=== PATIENT | female | born 1965 | race African-American/Black ===

== ENCOUNTER 2018-02-09 15:18 | Inpatient (IN) | payer MEDICARE, MEDICAID ==
[~2018-02-09] VITALS: Ht 165.1 cm; Wt 61.1 kg
--- NOTE | ~2018-02-09 | OP ---
PATIENT NAME: PRADEEP GONZALEZ MEDICAL RECORD: [id number] :61 LOCATION:D. D.2136 ADMISSION DATE:02/09/18 SURGEON: GRACIE GOLDSTEIN MD DATE OF OPERATION: 02/20/2018 REFERRED BY: Ham Fierro MD PREOPERATIVE DIAGNOSES: Staphylococcal bacteremia and dialysis catheter associated sepsis. POSTOPERATIVE DIAGNOSES: Staphylococcal bacteremia and dialysis catheter associated sepsis. ADDITIONAL DIAGNOSES: End-stage renal disease and dependence on hemodialysis and diabetes and methicillin-resistant Staphylococcus aureus bacteremia. OPERATION PERFORMED: Right internal jugular tunneled dialysis catheter exchange with placement of a 19-cm HemoSplit catheter under TIVA per [employer] SERVICE OFFICER and local 1% lidocaine. PREOPERATIVE NOTE: Ms. oGnzalez is a 52-year-old patient of nephrology. I was asked by Dr. Fierro to change her right internal jugular dialysis catheter, which is believed to be infected with methicillin-resistant Staphylococcus. She has been on vancomycin now for a while. DESCRIPTION OF PROCEDURE: Under TIVA in supine position, the patient was prepped and draped in sterile manner and the skin and subcutaneous tissues around the subcutaneous tunnel were anesthetized with lidocaine. The catheter was placed on some tension and with this simple traction, the Dacron Ranchester cuff which was not attached to the surrounding tissues within the tunnel easily was delivered from the entry site. Then, a Roadrunner wire was introduced through the catheter and passed into the inferior vena cava and the old catheter was removed under fluoroscopy. Its tip was sent for culture and a new 19 cm HemoSplit catheter was inserted over the guidewire and positioned with its tip deeply within the right atrium. Both lumens of the catheter were accessed and aspirated, free return of blood confirmed. They were flushed with saline and then Hep-Lock solution, clamped and capped. The catheter was sutured to the skin with 2-0 Prolene and a standard central vein line dressing applied. The patient was placed in reverse Trendelenburg position to reduce oozing and bleeding along the catheter tract. Fluoroscopy was utilized throughout the procedure and there is no need for a chest x-ray. It is perfectly fine to go ahead now and use her new catheter as needed for venous access and dialysis. Blood loss during the procedure was trivial and unreplaced and all sponges, instruments, and needles were accounted for. TRANSINT:[id number] Voice Confirmation ID: [id number] DOCUMENT ID: [id number] OPERATIVE REPORT [id number] PRADEEP GONZALEZ JAMES MD at 2012 CC: HAM IFERRO MD [id number] DICTATION DATE: 02/20/18100 MACHINERY ERECTOR: 02/20/18 0338 DIS IN 02/23/18 [place] [id number] [facility], [facility]901
--- NOTE | ~2018-02-09 | DS ---
PATIENT:PRADEEP DUBON :61 MEDICAL RECORD: [id number] DISCHARGE SUMMARY ADMISSION DATE: 02/09/18 DISCHARGE DATE: 02/23/18 HISTORY OF PRESENT ILLNESS: The patient is an unfortunate 52-year-old black female with longstanding diabetes mellitus. 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 She has chronic long term confinement, but continues to have ongoing drug abuse with a positive drug screens despite being in the long term. She is admitted with fever. HOSPITAL COURSE: The patient had positive blood cultures for MRSA. She was dosed with vancomycin and had a new dialysis catheter placed by Dr. Lim. Her echocardiogram was negative for any evidence of valvular abnormalities. She received multiple doses of vancomycin during her hospitalization. During this time, she had an HIV that was negative, but had a positive screen for syphilis confirmed with a positive FDA, seen by Dr. Allison who gave her Bicillin and scheduled her for 2 IM doses as an outpatient by 1 week. We will continue that as an outpatient. We were unable to find a long term that would accept the patient upon discharge due to her ongoing drug abuse and so she will be discharged to the care of her family. DISCHARGE DIAGNOSES: 1. Infected dialysis catheter, now removed. 2. Ongoing drug abuse. 3. Septicemia with methicillin-resistant Staphylococcus aureus, treated with vancomycin. 4. Blindness due to diabetic retinopathy. 5. End-stage renal disease, chronic dialysis. 6. Chronic anemia. 7. Tertiary syphilis. PLAN: The patient will be discharged today. We will arrange for her to finish her Bicillin at the health department. She will resume her dialysis at [facility]. There is no long term that will accept the patient and she will be discharged home today. She will be discharged on her renal diabetic diet. DISCHARGE MEDICATIONS: Bicillin 1.2 million units IM weekly times 2. She will do Sabra p.r.n., Nephro-Ken 1 daily, Effexor 37.5 daily. She will continue Epogen in the dialysis unit. She will do Tums 2 t.i.d., Neurontin 100 b.i.d., Xanax 0.25 p.r.n., Protonix 40 mg daily, insulin Levemir 20 at bedtime, Seroquel 25 at bedtime, Prozac 10 b.i.d., hydralazine 100 t.i.d., losartan 100 daily, isosorbide 60 mg daily, Lipitor 40 mg daily, amlodipine 10 mg daily. TRANSINT:[id number] Voice Confirmation ID: [id number] DOCUMENT ID: [id number] ULI LOBO MD at 0605 CC: [id number] DICTATION DATE: 02/23/18 08 SELF PROPELLED DREDGE OPERATOR: 02/23/18 1153 DIS IN 02/23/18 [place] [id number] [place] [address]
--- NOTE | ~2018-02-09 | EC ---
PATIENT:PRADEEP DUBON DATE OF SERVICE: 02/09/18 SEX: F MEDICAL RECORD: [id number] DATE OF : [birth year] LOCATION:D.M2 D.213 AGE OF PATIENT: 52 ADMISSION DATE: 02/09/18 REFERRING PHYSICIAN: INTERPRETING PHYSICIAN: DAPHNE DOWNING MD ECHOCARDIOGRAM REPORT ECHO CHARGES 4 ECHO COMPLETE Date: 02/19 CLINICAL DIAGNOSIS: STAPH SEPSIS ECHOCARDIOGRAPHIC MEASUREMENTS (adult normal given) AC root (d.<3.7cm) 3.2 cm LV Septum d (<1.2 cm> 1.4 cm Valve Excursion 1.9 cm LV Septum (systole) 2.0 cm Left Atria (s.<4.0cm> 3.7 cm LVPW d(<1.2cm) 1.6 cm RV (d.<2.3cm) 2.2 cm LVPW (sytole) 2.0 cm LV diastole(<5.6CM) 4.1 cm MV E-F(>70mm/sec) cm LV systole 2.8 cm LVOT Diameter 1.8 cm MV exc.(>10mm) cm Est.ejection fraction (50-75%) % DOPPLER: LVIT cm/sec A 77.0 cm/sec E 129 cm/sec LA cm/sec RVSP 46.2 mmHg LVOT 100 cm/sec AOP1/2T m/s Asc. Ao 195 cm/sec RVOT 76.0 cm/sec RA cm/sec PA 125 cm/sec AV Gradient Peak 15.2 mmHg AV Mean 7.4 mmHg AV Area 1.4 cm MV Gradient Peak 6.2 mmHg MV Mean 2.6 mmHg MV Area cm COMMENTS: Nursing Care Partner: 1 PRISCILLA QUINTANAOE Heater Engineer Helper: 2 Dr. Holliday TAPE# PACS Pericardial Effusion N DATE OF SERVICE: FINDINGS: 1. Left ventricular chamber size is within normal limits. Left ventricular systolic function is normal. Overall ejection fraction is estimated at 50%. 2. Left atrium, right atrium, and right ventricular sizes are within normal limit. 3. Valvular structures have normal structure and motion. 4. Doppler interrogation reveals mild mitral regurgitation and mild tricuspid regurgitation. No other valvular insufficiency or stenosis. Pulmonary systolic ECHOCARDIOGRAM REPORT [id number] PRADEEP DUBON pressure is mildly elevated, estimated at 46 mmHg. 5. No evidence of pericardial effusion or left ventricular thrombus. TRANSINT:[id number] Voice Confirmation ID: [id number] DOCUMENT ID: [id number] DAPHNE DOWNING MD at 1056 CC: [id number] DICTATION DATE: 02/19/18 162 TRASH COLLECTOR SUPERVISOR: 02/19/18 2339 ADM IN [facility] [address] [place] [address]
[2018-02-09 15:41] VITALS: BP 131/70; BMI 21.6
[2018-02-09] MEDS ORDERED: LIPITOR40 MG PO (18:17)
[2018-02-09] MEDS ORDERED: SEROQUEL25 MG PO (18:19)
[2018-02-09] MEDS ORDERED: PROZAC10 MG PO (18:21)
[2018-02-09] MEDS ORDERED: COZAAR100 MG PO (18:21)
[2018-02-09] MEDS ORDERED: NORVASC10 MG PO (18:22)
[2018-02-09] MEDS ORDERED: OMEPRAZOLE40 MG PO (18:22)
[2018-02-09] MEDS ORDERED: LEVEMIR100 U/M1 SQ (18:24)
[2018-02-09] MEDS ORDERED: NOVOLOG100 U/M1 SC (18:25)
[2018-02-09] MEDS ORDERED: ISOSORBIDE MONO60 M1 PO (18:26)
[2018-02-09] MEDS ORDERED: EFFEXOR75 MG PO (18:28)
[2018-02-09] MEDS ORDERED: HYDRALAZINE HC100 MG PO (18:28)
[2018-02-09 21:05] VITALS: BP 201/85
[2018-02-09 21:33] LABS: BASOPHILS 0.1 % (0-2); EOSINOPHILS 0 % (0-7); HEMATOCRIT 34.6 % (36.0-48.0); HEMOGLOBIN 11.1 g/dL (12-16); IMMATURE GRANULOCYTES 1.3 % (0-5); MCH 31.7 pg (26.0-34.0); MCHC 32.1 g/dL (31.0-37.0); MCV 98.9 fL (80.0-100.0); MEAN PLATELET VOLUME 10.9 fL (7.4-10.4); MONOCYTES 4.5 % (2-11); NEUTROPHILS 91.1 % (40-80); PLATELET COUNT 194 10x3/uL (130-400); RDW 16.6 % (11.5-14.5); WBC 16.5 10x3/uL (4.8-10.8)
[2018-02-09 21:37] LABS: ANION GAP 18.2 mmol/L (8-16); CALCIUM 7.2 mg/dL (8.5-10.1); CARBON DIOXIDE 23.5 mmol/L (21.0-32.0); CREATININE - SERUM 4.4 mg/dL (0.6-1.3); POTASSIUM - SERUM 3.7 mmol/L (3.5-5.1)
[2018-02-10 01:47] VITALS: BP 135/67
[2018-02-10 07:34] VITALS: BP 138/84
[2018-02-10 10:18] LABS: APPEARANCE TURBID (CLEAR); BILIRUBIN NEGATIVE (NEGATIVE); COLOR YELLOW (YELLOW); GLUCOSE 50 mg/dL (NEGATIVE); KETONE NEGATIVE (NEGATIVE); NITRITE NEGATIVE (NEGATIVE); PROTEIN 3+ mg/dL (NEGATIVE); UROBILINOGEN NORMAL (NORMAL)
[2018-02-10 10:25] LABS: AMORPHOUS SEDIMENT >1+ /lpf (NONE SEEN); BACTERIA MANY /hpf (NONE SEEN); EPITHELIAL CELLS 0-5 /hpf (0-5); GRANULAR CAST 0-5 /lpf (NONE SEEN); HYALINE CAST OCC /lpf (NONE SEEN); MUCUS <1+ /lpf (NONE SEEN); RED CELLS - URINE 0-5 /hpf (0-5); WHITE CELLS - URINE 0-5 /hpf (0-5)
[2018-02-10 10:26] LABS: TALC POWDER CRYSTALS 25-50 /hpf (NONE SEEN)
[2018-02-10 10:34] LABS: UDS - AMPHET NEGATIVE QUAL (NEGATIVE); UDS - BARB NEGATIVE QUAL (NEGATIVE); UDS - BENZO NEGATIVE QUAL (NEGATIVE); UDS - COCAINE POSITIVE QUAL (NEGATIVE); UDS - OPIATE NEGATIVE QUAL (NEGATIVE); UDS - PCP NEGATIVE QUAL (NEGATIVE); UDS - THC POSITIVE QUAL (NEGATIVE)
[2018-02-10 11:00] VITALS: BP 129/79
[2018-02-10 13:17] VITALS: Ht 165.1 cm; Wt 61.1 kg
[2018-02-10 15:13] VITALS: BP 132/74
[2018-02-10 20:00] VITALS: BP 124/49
[2018-02-11 04:00] VITALS: BP 136/64
[2018-02-11 06:01] LABS: BASOPHILS 0.1 % (0-2); EOSINOPHILS 0.2 % (0-7); HEMATOCRIT 28.5 % (36.0-48.0); HEMOGLOBIN 9.4 g/dL (12-16); IMMATURE GRANULOCYTES 0.4 % (0-5); MCH 31.3 pg (26.0-34.0); MEAN PLATELET VOLUME 11.1 fL (7.4-10.4); MONOCYTES 10.9 % (2-11); NEUTROPHILS 81.4 % (40-80); PLATELET COUNT 189 10x3/uL (130-400); RDW 15.7 % (11.5-14.5)
[2018-02-11 06:10] LABS: CARBON DIOXIDE 22.9 mmol/L (21.0-32.0); WBC 11.1 10x3/uL (4.8-10.8)
[2018-02-11 06:16] LABS: ANION GAP 16.2 mmol/L (8-16); CREATININE - SERUM 6.9 mg/dL (0.6-1.3); POTASSIUM - SERUM 3.1 mmol/L (3.5-5.1)
[2018-02-11 06:19] LABS: CALCIUM 6.4 mg/dL (8.5-10.1)
[2018-02-11 07:35] VITALS: BP 126/70
[2018-02-11 11:16] VITALS: BP 136/71
[2018-02-11 16:17] VITALS: BP 106/44
[2018-02-11 20:00] VITALS: BP 121/68
[2018-02-11 23:51] VITALS: BP 119/62
[2018-02-12 04:00] VITALS: BP 130/62
[2018-02-12 05:09] LABS: BASOPHILS 0.3 % (0-2); EOSINOPHILS 2.2 % (0-7); HEMATOCRIT 25.6 % (36.0-48.0); HEMOGLOBIN 8.3 g/dL (12-16); IMMATURE GRANULOCYTES 0.6 % (0-5); LYMPHOCYTES 8.8 % (15-50); MCH 30.5 pg (26.0-34.0); MCHC 32.4 g/dL (31.0-37.0); MCV 94.1 fL (80.0-100.0); MONOCYTES 15.9 % (2-11); NEUTROPHILS 72.2 % (40-80); PLATELET COUNT 195 10x3/uL (130-400); RBC 2.72 10x6/uL (4.00-5.40); RDW 15.4 % (11.5-14.5); WBC 6.9 10x3/uL (4.8-10.8)
[2018-02-12 05:33] LABS: ANION GAP 18.1 mmol/L (8-16); CARBON DIOXIDE 21.1 mmol/L (21.0-32.0); CREATININE - SERUM 8.5 mg/dL (0.6-1.3); PHOSPHOROUS 5.7 mg/dL (2.5-4.9); POTASSIUM - SERUM 3.2 mmol/L (3.5-5.1)
[2018-02-12 05:36] LABS: CALCIUM 5.9 mg/dL (8.5-10.1)
[2018-02-12 08:35] VITALS: BP 101/59
[2018-02-12 11:40] VITALS: BP 115/65
[2018-02-12 15:00] VITALS: BP 115/52
[2018-02-12 15:34] VITALS: BP 115/52
[2018-02-12 21:09] VITALS: BP 122/57
[2018-02-13 05:16] LABS: BASOPHILS 0.7 % (0-2); EOSINOPHILS 3.2 % (0-7); HEMATOCRIT 27.5 % (36.0-48.0); IMMATURE GRANULOCYTES 0.7 % (0-5); LYMPHOCYTES 16.7 % (15-50); MCH 30.5 pg (26.0-34.0); MCHC 32.7 g/dL (31.0-37.0); MCV 93.2 fL (80.0-100.0); MEAN PLATELET VOLUME 10.4 fL (7.4-10.4); MONOCYTES 13.8 % (2-11); NEUTROPHILS 64.9 % (40-80); PLATELET COUNT 195 10x3/uL (130-400); RBC 2.95 10x6/uL (4.00-5.40); RDW 15.4 % (11.5-14.5); WBC 5.6 10x3/uL (4.8-10.8)
[2018-02-13 05:24] LABS: ANION GAP 14.4 mmol/L (8-16); CARBON DIOXIDE 25.7 mmol/L (21.0-32.0); CREATININE - SERUM 6.9 mg/dL (0.6-1.3); PHOSPHOROUS 4.6 mg/dL (2.5-4.9); POTASSIUM - SERUM 3.1 mmol/L (3.5-5.1)
[2018-02-13 05:26] LABS: CALCIUM 6.3 mg/dL (8.5-10.1)
[2018-02-13 06:16] VITALS: BP 125/68
[2018-02-13 08:27] VITALS: BP 136/61
[2018-02-13 11:46] VITALS: BP 142/72
[2018-02-13 14:49] VITALS: BP 117/58
[2018-02-13 15:34] VITALS: BP 136/76
[2018-02-13 20:00] VITALS: BP 108/56
[2018-02-14] VITALS: BP 112/60
[2018-02-14 04:00] VITALS: BP 116/64
[2018-02-14 05:17] LABS: BASOPHILS 0.4 % (0-2); EOSINOPHILS 4.8 % (0-7); HEMATOCRIT 25.6 % (36.0-48.0); HEMOGLOBIN 8.3 g/dL (12-16); IMMATURE GRANULOCYTES 0.6 % (0-5); LYMPHOCYTES 17.8 % (15-50); MCH 30.5 pg (26.0-34.0); MCHC 32.4 g/dL (31.0-37.0); MCV 94.1 fL (80.0-100.0); MEAN PLATELET VOLUME 9.9 fL (7.4-10.4); NEUTROPHILS 60.4 % (40-80); PLATELET COUNT 213 10x3/uL (130-400); RBC 2.72 10x6/uL (4.00-5.40); RDW 15.3 % (11.5-14.5); WBC 5.5 10x3/uL (4.8-10.8)
[2018-02-14 05:45] LABS: ANION GAP 17.4 mmol/L (8-16); CARBON DIOXIDE 23.1 mmol/L (21.0-32.0); CREATININE - SERUM 7.9 mg/dL (0.6-1.3); POTASSIUM - SERUM 3.5 mmol/L (3.5-5.1); VANCOMYCIN - RANDOM 27.7 ug/mL (10.0-20.0)
[2018-02-14 05:50] LABS: CALCIUM 6.2 mg/dL (8.5-10.1)
[2018-02-14 07:49] VITALS: BP 134/53
[2018-02-14 11:15] VITALS: BP 93/58
[2018-02-14 15:14] VITALS: BP 113/60
[2018-02-14 20:00] VITALS: BP 123/63
[2018-02-15] VITALS: BP 103/58
[2018-02-15 04:00] VITALS: BP 120/57
[2018-02-15 05:47] LABS: BASOPHILS 0.4 % (0-2); EOSINOPHILS 4.3 % (0-7); HEMATOCRIT 27.4 % (36.0-48.0); HEMOGLOBIN 8.9 g/dL (12-16); IMMATURE GRANULOCYTES 1.1 % (0-5); LYMPHOCYTES 16.1 % (15-50); MCH 30.5 pg (26.0-34.0); MCHC 32.5 g/dL (31.0-37.0); MCV 93.8 fL (80.0-100.0); MEAN PLATELET VOLUME 10.1 fL (7.4-10.4); MONOCYTES 16.1 % (2-11); PLATELET COUNT 244 10x3/uL (130-400); RBC 2.92 10x6/uL (4.00-5.40); WBC 5.5 10x3/uL (4.8-10.8)
[2018-02-15 05:54] LABS: ANION GAP 15.2 mmol/L (8-16); CARBON DIOXIDE 26.6 mmol/L (21.0-32.0); POTASSIUM - SERUM 3.8 mmol/L (3.5-5.1); VANCOMYCIN - PEAK 21.4 ug/mL (18.0-26.0)
[2018-02-15 06:07] LABS: CREATININE - SERUM 5.8 mg/dL (0.6-1.3)
[2018-02-15 07:38] VITALS: BP 125/69
[2018-02-15 11:14] VITALS: BP 143/93
[2018-02-15 15:23] VITALS: BP 134/74
[2018-02-15 20:00] VITALS: BP 137/59
[2018-02-16] VITALS: BP 132/72
[2018-02-16 04:00] VITALS: BP 133/74
[2018-02-16 05:39] LABS: BASOPHILS 0.6 % (0-2); EOSINOPHILS 5.3 % (0-7); HEMATOCRIT 27.8 % (36.0-48.0); IMMATURE GRANULOCYTES 0.8 % (0-5); LYMPHOCYTES 24.8 % (15-50); MCH 30.6 pg (26.0-34.0); MCHC 32.4 g/dL (31.0-37.0); MCV 94.6 fL (80.0-100.0); MEAN PLATELET VOLUME 9.9 fL (7.4-10.4); MONOCYTES 11.8 % (2-11); NEUTROPHILS 56.7 % (40-80); PLATELET COUNT 292 10x3/uL (130-400); RBC 2.94 10x6/uL (4.00-5.40); WBC 5.2 10x3/uL (4.8-10.8)
[2018-02-16 06:00] LABS: ANION GAP 14.5 mmol/L (8-16); CARBON DIOXIDE 26.1 mmol/L (21.0-32.0); POTASSIUM - SERUM 3.6 mmol/L (3.5-5.1); VANCOMYCIN - PEAK 32.5 ug/mL (18.0-26.0)
[2018-02-16 09:26] VITALS: BP 136/76
[2018-02-16 12:03] VITALS: BP 136/66
[2018-02-16 15:57] VITALS: BP 130/62
[2018-02-16 20:00] VITALS: BP 128/74
[2018-02-17 04:00] VITALS: BP 147/62
[2018-02-17 05:24] LABS: BASOPHILS 0.3 % (0-2); EOSINOPHILS 3.8 % (0-7); HEMATOCRIT 26.8 % (36.0-48.0); HEMOGLOBIN 8.7 g/dL (12-16); IMMATURE GRANULOCYTES 0.8 % (0-5); LYMPHOCYTES 15.2 % (15-50); MCH 30.2 pg (26.0-34.0); MCHC 32.5 g/dL (31.0-37.0); MCV 93.1 fL (80.0-100.0); MEAN PLATELET VOLUME 9.5 fL (7.4-10.4); MONOCYTES 12.8 % (2-11); NEUTROPHILS 67.1 % (40-80); PLATELET COUNT 321 10x3/uL (130-400); RBC 2.88 10x6/uL (4.00-5.40); RDW 14.9 % (11.5-14.5); WBC 6.4 10x3/uL (4.8-10.8)
[2018-02-17 05:43] LABS: CALCIUM 7.1 mg/dL (8.5-10.1); CARBON DIOXIDE 27.8 mmol/L (21.0-32.0); POTASSIUM - SERUM 3.8 mmol/L (3.5-5.1); VANCOMYCIN - PEAK 26.5 ug/mL (18.0-26.0)
[2018-02-17 05:45] LABS: CREATININE - SERUM 5.2 mg/dL (0.6-1.3)
[2018-02-17 08:07] VITALS: BP 157/81
[2018-02-17 12:13] VITALS: BP 142/78
[2018-02-17 17:23] VITALS: BP 151/78
[2018-02-17 21:24] VITALS: BP 134/72
[2018-02-18 05:36] VITALS: BP 131/71
[2018-02-18 07:31] LABS: BASOPHILS 0.5 % (0-2); HEMATOCRIT 27.7 % (36.0-48.0); HEMOGLOBIN 8.9 g/dL (12-16); IMMATURE GRANULOCYTES 0.8 % (0-5); LYMPHOCYTES 17.6 % (15-50); MCH 30.3 pg (26.0-34.0); MCHC 32.1 g/dL (31.0-37.0); MCV 94.2 fL (80.0-100.0); MEAN PLATELET VOLUME 9.4 fL (7.4-10.4); MONOCYTES 10.5 % (2-11); NEUTROPHILS 67.6 % (40-80); RBC 2.94 10x6/uL (4.00-5.40); WBC 6.3 10x3/uL (4.8-10.8)
[2018-02-18 07:32] LABS: PLATELET COUNT 402 10x3/uL (130-400)
[2018-02-18 07:57] VITALS: BP 155/83
[2018-02-18 08:00] LABS: % SATURATION 31 % (15-55); IRON 60 ug/dl (35-150); TOTAL IRON BIND CAPACITY 189 ug/dl (260-445); UNSAT IRON BIND CAPACITY 129 ug/dl (150-375)
[2018-02-18 08:24] LABS: ANION GAP 16.5 mmol/L (8-16); CALCIUM 7.3 mg/dL (8.5-10.1); CARBON DIOXIDE 26.3 mmol/L (21.0-32.0); CREATININE - SERUM 6.5 mg/dL (0.6-1.3); PHOSPHOROUS 4.2 mg/dL (2.5-4.9); POTASSIUM - SERUM 3.8 mmol/L (3.5-5.1); VANCOMYCIN - PEAK 23.3 ug/mL (18.0-26.0)
[2018-02-18 15:36] VITALS: BP 120/65
[2018-02-18 21:12] VITALS: BP 131/74
[2018-02-19 05:50] VITALS: BP 139/75
[2018-02-19 06:21] LABS: BASOPHILS 0.8 % (0-2); EOSINOPHILS 3.1 % (0-7); HEMATOCRIT 29.2 % (36.0-48.0); HEMOGLOBIN 9.5 g/dL (12-16); IMMATURE GRANULOCYTES 0.8 % (0-5); LYMPHOCYTES 22.5 % (15-50); MCH 30.4 pg (26.0-34.0); MCHC 32.5 g/dL (31.0-37.0); MCV 93.3 fL (80.0-100.0); MEAN PLATELET VOLUME 9.6 fL (7.4-10.4); MONOCYTES 5.5 % (2-11); NEUTROPHILS 67.3 % (40-80); PLATELET COUNT 458 10x3/uL (130-400); RBC 3.13 10x6/uL (4.00-5.40); WBC 7.1 10x3/uL (4.8-10.8)
[2018-02-19 06:37] LABS: ANION GAP 17.4 mmol/L (8-16); CALCIUM 7.8 mg/dL (8.5-10.1); CARBON DIOXIDE 26.3 mmol/L (21.0-32.0); CREATININE - SERUM 7.2 mg/dL (0.6-1.3); VANCOMYCIN - PEAK 19.8 ug/mL (18.0-26.0)
[2018-02-19 06:42] LABS: POTASSIUM - SERUM 4.7 mmol/L (3.5-5.1)
[2018-02-19 07:40] VITALS: BP 129/76
[2018-02-19 10:44] VITALS: BP 124/73
[2018-02-19 13:04] LABS: INR 0.96 (0.85-1.17); PROTIME 12.4 SECONDS (11.6-15.0)
[2018-02-19 14:57] VITALS: BP 131/72
[2018-02-19 19:00] VITALS: BP 126/79
[2018-02-20] VITALS (7 sets, daily range): BP systolic 128–150; BP diastolic 56–82
[2018-02-20 05:49] LABS: EOSINOPHILS 1.6 % (0-7); HEMATOCRIT 24.8 % (36.0-48.0); IMMATURE GRANULOCYTES 0.6 % (0-5); LYMPHOCYTES 13.9 % (15-50); MCH 30.7 pg (26.0-34.0); MCHC 32.3 g/dL (31.0-37.0); MEAN PLATELET VOLUME 8.8 fL (7.4-10.4); MONOCYTES 7.1 % (2-11); NEUTROPHILS 75.8 % (40-80); PLATELET COUNT 406 10x3/uL (130-400); RBC 2.61 10x6/uL (4.00-5.40); RDW 14.9 % (11.5-14.5); WBC 7.1 10x3/uL (4.8-10.8)
[2018-02-20 06:23] LABS: ANION GAP 13.3 mmol/L (8-16); CALCIUM 7.2 mg/dL (8.5-10.1); CARBON DIOXIDE 28.9 mmol/L (21.0-32.0); PHOSPHOROUS 3.4 mg/dL (2.5-4.9); POTASSIUM - SERUM 4.2 mmol/L (3.5-5.1); VANCOMYCIN - PEAK 14.1 ug/mL (18.0-26.0); VANCOMYCIN - RANDOM 14.1 ug/mL (10.0-20.0)
[2018-02-20 06:26] LABS: CREATININE - SERUM 4.5 mg/dL (0.6-1.3)
[2018-02-20 08:22] LABS: FOLATE (FOLIC ACID) - SERUM 8.1 ng/mL (>3.0)
[2018-02-20 15:23] LABS: RAPID PLASMA REAGIN Reactive (Non Reactive); TREPONEMA PALLIDUM AB Positive (Negative)
[2018-02-21] VITALS: BP 127/53
[2018-02-21 04:00] VITALS: BP 145/71
[2018-02-21 06:12] LABS: BASOPHILS 0.3 % (0-2); EOSINOPHILS 0.2 % (0-7); HEMATOCRIT 28.7 % (36.0-48.0); IMMATURE GRANULOCYTES 0.6 % (0-5); LYMPHOCYTES 12.2 % (15-50); MCH 30.2 pg (26.0-34.0); MCHC 31.4 g/dL (31.0-37.0); MCV 96.3 fL (80.0-100.0); MEAN PLATELET VOLUME 9.3 fL (7.4-10.4); MONOCYTES 6.4 % (2-11); NEUTROPHILS 80.3 % (40-80); RBC 2.98 10x6/uL (4.00-5.40); RDW 15.3 % (11.5-14.5)
[2018-02-21 06:15] LABS: PLATELET COUNT 539 10x3/uL (130-400)
[2018-02-21 06:43] LABS: ANION GAP 18.2 mmol/L (8-16); CALCIUM 8.1 mg/dL (8.5-10.1); CARBON DIOXIDE 25.8 mmol/L (21.0-32.0); CREATININE - SERUM 5.6 mg/dL (0.6-1.3); VANCOMYCIN - PEAK 13.3 ug/mL (18.0-26.0)
[2018-02-21 08:57] VITALS: BP 123/78
[2018-02-21 12:16] VITALS: BP 145/76
[2018-02-21 16:10] VITALS: BP 140/75
[2018-02-21 20:00] VITALS: BP 161/93
[2018-02-22 04:00] VITALS: BP 130/70
[2018-02-22 05:15] LABS: BASOPHILS 0.6 % (0-2); EOSINOPHILS 1.5 % (0-7); HEMATOCRIT 25.5 % (36.0-48.0); IMMATURE GRANULOCYTES 0.7 % (0-5); LYMPHOCYTES 17.1 % (15-50); MCH 30.5 pg (26.0-34.0); MCHC 31.4 g/dL (31.0-37.0); MCV 97.3 fL (80.0-100.0); MEAN PLATELET VOLUME 8.9 fL (7.4-10.4); MONOCYTES 6.7 % (2-11); NEUTROPHILS 73.4 % (40-80); PLATELET COUNT 441 10x3/uL (130-400); RBC 2.62 10x6/uL (4.00-5.40); RDW 15.5 % (11.5-14.5)
[2018-02-22 05:23] LABS: WBC 8.4 10x3/uL (4.8-10.8)
[2018-02-22 05:39] LABS: ANION GAP 12.3 mmol/L (8-16); CALCIUM 7.8 mg/dL (8.5-10.1); CARBON DIOXIDE 29.1 mmol/L (21.0-32.0); PHOSPHOROUS 2.9 mg/dL (2.5-4.9); POTASSIUM - SERUM 4.4 mmol/L (3.5-5.1); VANCOMYCIN - PEAK 19.1 ug/mL (18.0-26.0); VANCOMYCIN - RANDOM 19.1 ug/mL (10.0-20.0)
[2018-02-22 05:47] LABS: CREATININE - SERUM 4.1 mg/dL (0.6-1.3)
[2018-02-22 09:35] VITALS: BP 138/77
[2018-02-22 18:42] VITALS: BP 130/70
[2018-02-22 20:00] VITALS: BP 155/85
[2018-02-23] VITALS: BP 148/47
[2018-02-23 04:00] VITALS: BP 140/70
[2018-02-23 06:08] LABS: BASOPHILS 0.6 % (0-2); EOSINOPHILS 1.6 % (0-7); HEMATOCRIT 24.9 % (36.0-48.0); HEMOGLOBIN 7.9 g/dL (12-16); IMMATURE GRANULOCYTES 0.7 % (0-5); LYMPHOCYTES 15.7 % (15-50); MCH 30.6 pg (26.0-34.0); MCHC 31.7 g/dL (31.0-37.0); MCV 96.5 fL (80.0-100.0); MONOCYTES 8.3 % (2-11); NEUTROPHILS 73.1 % (40-80); PLATELET COUNT 496 10x3/uL (130-400); RBC 2.58 10x6/uL (4.00-5.40); RDW 15.8 % (11.5-14.5); WBC 9.4 10x3/uL (4.8-10.8)
[2018-02-23 06:11] LABS: ANION GAP 11.4 mmol/L (8-16); CALCIUM 8.3 mg/dL (8.5-10.1); CARBON DIOXIDE 27.8 mmol/L (21.0-32.0); POTASSIUM - SERUM 4.2 mmol/L (3.5-5.1)
[2018-02-23 06:19] LABS: CREATININE - SERUM 5.3 mg/dL (0.6-1.3)
[2018-02-23 09:35] VITALS: BP 140/80
[2018-02-23] MEDS ORDERED: [UNRECOGNIZED DRUG - CODE] IM (09:57)
[2018-02-23] MEDS ORDERED: TUMS500 MG PO (09:59)
[2018-02-23] MEDS ORDERED: NEPHRO-VITE RX1 TAB PO (09:59)
[2018-02-23 12:26] VITALS: BP 142/72
== END 2018-02-23 17:26 | disposition home health service (06) | DRG 871 ==
LOC: D.M2 15:18
PROVIDERS: Internal Medicine Nephrology; Surgery
PROC: 5A1D70Z Performance of Urinary Filtration, Intermittent, Less than 6 Hours Per Day (ICD-10-PCS; principal; 2018-02-12)
PROC: 0J2SXYZ Change Other Device in Head and Neck Subcutaneous Tissue and Fascia, External Approach (ICD-10-PCS; 2018-02-20)
DX: A41.02 Sepsis due to Methicillin resistant Staphylococcus aureus (principal); N18.6 End stage renal disease; I13.2 Hypertensive heart and chronic kidney disease with heart failure and with stage 5 chronic kidney disease, or end stage renal disease; N30.90 Cystitis, unspecified without hematuria; E11.22 Type 2 diabetes mellitus with diabetic chronic kidney disease; Z99.2 Dependence on renal dialysis; J44.9 Chronic obstructive pulmonary disease, unspecified; F32.9 Major depressive disorder, single episode, unspecified; F12.90 Cannabis use, unspecified, uncomplicated; F14.90 Cocaine use, unspecified, uncomplicated; Z72.89 Other problems related to lifestyle; I50.9 Heart failure, unspecified; H54.7 Unspecified visual loss; A52.8 Late syphilis, latent; L40.9 Psoriasis, unspecified

== ENCOUNTER 2018-09-28 16:26 | Inpatient (IN) | payer MEDICARE ==
[~2018-09-28] VITALS: Ht 165.1 cm
--- NOTE | ~2018-09-28 | MORECARE ---
CASE MANAGEMENT DISCHARGE SUMMARY PATIENT: PRADEEP DUBON UNIT: [id number] ADM DATE: 09/28/18 AGE: 53 : [birth year] SEX: F ROOM/BED: D.4983 AUTHOR: HORTENSIA,DOC PHYSICIAN: REFERRING PHYSICIAN: SANDEE SANCHEZ MD DATE OF SERVICE: 10/10/18 Discharge Plan Patient Name: PRADEEP DUBON Facility: [facility]:[place] : 1965 Planned Disposition: Pastoral Worker Acute Care Facility Anticipated Discharge Date: 10/10/18 Discharge Date: Expected LOS: 12 Initial Reviewer: [email or web address] Initial Review Date: 10/08/2018 Generated: 10/10/18 5:06 pm Comments DCP- Discharge Planning Updated by [email or web address]: Kin Newman on 10/10/18 3:[address] Patient Name: PRADEEP DUBON Encounter No: [id number] : 1965 Primary Insurance: MEDICARE A & B Anticipated DC Date: 10-10-2018 Planned Disposition: Pastoral Worker Acute Care Facility External Planned Provider: BENJY GARCIA [facility] DCP follow-up note: CM RECEIVED ORDER FOR LTACH EVALUATION, SPOKE TO PT IN ROOM, DISCUSSED LTACH LOCATIONS AND PROVIDERS. PT WOULD LIKE TO STAY IN [facility] AND PT LIVE HERE. PT WOULD LIKE REFERRAL TO [facility]. CM CALLED ANABELA AT [facility], , PROVIDED REFERRAL INFORMATION. CM FAXED REFERRAL TO [facility] AT [phone]. CM WAITING ADMISSION DETERMINATION FROM [facility]. Kin Newman, CASE MANAGEMENT Appended by Kin Newman on 10/10/2018 16:01 KITCHEN LEAD: CM RECEIVED MESSAGE FROM ANABELA OF [facility], THEY ARE NOT ABLE TO MEET PT'S NEEDS. CM MET WITH PT AND DAUGHTER, DCP- Discharge Planning Updated by [email or web address]: Herlinda Jacobson on 10/10/18 2:[address] RECEIVED VERBAL REQUEST TO ARRANGE TRANSFER TO [facility] PER THE PATIENT AND FAMILY REQUEST. TRACIE GEORGE HAS EXPLAINED TO FAMILY ABOUT LATERAL TRANSFER AND THE LIKELY OQUENDO THAT THE INSURANCE WILL NOT PAY FOR THE TRANSPORTATION THERE IF THERE IS A PHYSICIAN THAT WOULD ACCEPT HER. AT THAT TIME THEY FAMILY ASKED GEORGE TO TRY FOR LTACH IN [place] BUT HAVE SINCE CHANGED THIER MIND. @1516 TRANSFER CENTER WAS CALLED, SPOKE WITH FERNANDEZ. ALL INFORMATION GIVEN WITH TRANSFER DX OF SEPSIS PER FAMILY REQUEST. THE DOC TO DOC (PER TRISTEN MONTERROSO APN) IS TO BE DR LOBO. SHE GAVE ME HIS CELL PHONE NUMBER AND THIS WAS GIVEN TO THE TRANSFER CENTER. I FAXED FACE SHEET TO [phone], AND LEFT THE PHONE NUMBER TO THE FLOOR FOR HER AND THE PATIENTS BEDSIDE NURSES NAME WITH NOTATION THAT SHE WOULD BE HERE UNTIL 1900. WILL WAIT TO SEE IF THERE IS AN ACCEPTING. DCP- Discharge Planning Updated by [email or web address]: Kin Newman on 10/08/18 3:[address] Patient Name: PRADEEP DUBON Admission Status: ER Accout number: [id number] Admission Date: 09-28-2018 : 1965 Admission Diagnosis:FLU DUE TO UNIDENTIFIED INFLUENZA VIRUS W OTH RESP NOE Attending: SANDEE SANCHEZ Current LOS: 10 Anticipated DC Date: 10-10-2018 Planned Disposition: Inpatient Rehab Primary Insurance: MEDICARE A & B PLANNED EXTERNAL PROVIDER: [facility] Discharge Planning Comments: CM MET WITH PT AND DAUGHTER IN ROOM TO DISCUSS DISCHARGE PLANNING AND NEEDS. PRADEEP DUBON provided verbal consent to discuss current and ongoing needs with/in the presence of: DAUGHTERSIM. PT REPORTS LIVING AT HOME DEPENDENTLY WITH HER FAMILY WHO ASSISTS WITH BATHING AND MEDICATION MANAGEMENT. PT HAS A CANE WITH NO MEDICAL EQUIPMENT PROVIDER PREFERENCE. PT HAS NO OUTSIDE SERVICES ASSISTING IN THE HOME. CM DISCUSSED AVAILABILITY OF HOME HEALTH, REHAB SERVICES AND MEDICAL EQUIPMENT. PT REPORTS SHE WOULD LIKE TO BE CONSIDERED FOR REHAB AT [facility] PRIOR TO GOING HOME, REPORTS HER DAUGHTER WILL PICK HER UP FOR DISCHARGE HOME. IMPORTANT MESSAGE FROM MEDICARE PROVIDED AND EXPLAINED. CM WILL DISCUSS POSSIBILITY OF EVALUATION BY INPATIENT REHAB AT [facility] WITH THE PHYSICIAN. CM TO FOLLOW AND ASSIST NEEDED. Powder Core Tester: Kin Newman DCPIA - Discharge Planning Initial Assessment Updated by [email or web address]: Kin Newman on 10/08/18 4:38 pm * Is the patient Alert and Oriented? Yes * How many steps to enter\exit or inside your home? * PCP DR. DAYSI WEEKS * [facility] IN [place] * Preadmission Environment Home with Family * ADLs Partial Dependent * Partial ADLs (Assistance needed) Bathing Medication Management * Equipment Cane * Other Equipment USES CANE FOR AMBULATION AND BLINDNESS NO MEDICAL EQUIPMENT PROVIDER PREFERENCE * List name and contact numbers for known caregivers / representatives who currently or will assist patient after discharge: SIM MELARA, DTR, MICHAEL ORTA, SISTER, * Verbal permission to speak to the caregivers and representatives has been obtained from the patient. Yes * Community resources currently utilized Other * Please name any agencies selected above. OUTPATIENT DIALYSIS, [facility], MWF, 1130AM, [employer] TRANSPORT [facility]AN * Additional services required to return to the preadmission environment? Yes * Can the patient safely return to the preadmission environment? Yes * Has this patient been hospitalized within the prior 30 days at any hospital? No External Providers External Provider: [facility] Next Contact Date: 10/11/2018 Service Request Date: Service Type: Resolution: Reviewer: Comments: Coverage Notice Reviewer: [email or web address] Sarahi Newman Notice Issued Date-Time: 10/08/2018 16:15 Notice Type: IM Discharge Notice Notice Delivered To: Family Member Relationship to Patient: Daughter Floor Layer Name: SIM MELARA Delivery Method: HAND - Hand Delivered Kaia Days: Prior Verbal Notification: Recipient Understood Notice: Yes Recipient Signature: Yes Med Rec Note Co-signed by Attending: Coverage Notice Comment: Last DP export: 10/10/18 2:48 Patient Name: PRADEEP DUBON Page [id number] at 1606 All edits/amendments must be made on the electronic document DICTATION DATE: 10/10/18 1605 CHEMICAL MIXER: LISA 10/10/18 1605 RPT#: [id number] DC DATE: STATUS: ADM IN [facility] [address] [place] [address] END OF REPORT
--- NOTE | ~2018-09-28 | MORECARE ---
CASE MANAGEMENT DISCHARGE SUMMARY PATIENT: PRADEEP DUBON UNIT: [id number] ADM DATE: 09/28/18 AGE: 53 : 61 SEX: F ROOM/BED: D.1073 AUTHOR: VICTOR MANUEL BAZAN PHYSICIAN: REFERRING PHYSICIAN: SANDEE SANCHEZ MD DATE OF SERVICE: 10/12/18 Discharge Plan Patient Name: PRADEEP DUBON Facility: [facility]:[place] : 1965 Planned Disposition: Acute Care Hospital Anticipated Discharge Date: 10/12/18 Discharge Date: Expected LOS: 14 Initial Reviewer: [id number] Initial Review Date: 10/08/2018 Generated: 10/12/18 5:24 pm Comments DCP- Discharge Planning Updated by [id number]: Dmitri Raines on 10/12/18 1:[address] Patient Name: PRADEEP DUBON Encounter No: [id number] : 1965 Primary Insurance: MEDICARE A & B Anticipated DC Date: 10-11-2018 Planned Disposition: Acute Care Hospital External Planned Provider: [facility] DCP follow-up note: CM SPOKE TO RN TRACIE TSAI WHO ADVISED PT HAS BEEN ACCEPTED TO [facility] BY DR. REAL. TRANSFER CENTER WILL CALL [facility] AFTER 1600 HOURS INSTRUCTED BY [facility] TO CHECK BED AVAILABILITY. TRANSFER CENTER WILL NOTIFY MED 2 NURSE WHEN BED BECOMES AVAILABLE. CM NOTIFIED PT IN ROOM, PT IN AGREEMENT WITH TRANSFER TO [facility], ASKED CM TO CALL SIM PADILLA. CM CALLED SIM MELARA, DAUGHTER, , WHO IS ALSO IN AGREEMENT WITH TRANSFER TO [facility]. TRANSFER CENTER WILL NOTIFY MED 2 NURSE WHEN BED BECOMES AVAILABLE AT [facility]. Dmitri Raines, CASE MANAGEMENT DCP- Discharge Planning Updated by [id number]: Dmitri Raines on 10/11/18 3:[address] Patient Name: PRADEEP DUBON Encounter No: [id number] : 1965 Primary Insurance: MEDICARE A & B Anticipated DC Date: 10-11-2018 Planned Disposition: Acute Care Hospital External Planned Provider: [facility] DCP follow-up note: CM RECEIVED CALL FROM [facility] IN [place]; PT NOT MEETING MEDICARE GUIDELINES FOR LTACH ADMISSION. PT HAS ALSO BEEN DECLINED BY [facility] AND [facility] IN [place] FOR SAME REASONS. CM SPOKE TO PT IN ROOM, INFORMED HER THAT [facility] IN [place] DECLINED AND THAT WE ARE WAITING ON [facility] DETERMINATION. CM DISCUSSED SENIOR CARE FACILITY REHAB PLACEMENT. PT REPORTS SHE CANNOT GO TO ANY CARE HOME IN THE [facility] SHE WAS IN A [place] [facility]ARE [facility] AND THEY FOUND DRUG PARAPHENALIA IN HER SUITCASE. CM ASKED IF CM COULD AT LEAST TRY THE [facility] IN [place], PT STATED YES. PT'S DAUGHTER WAS NOT IN ROOM, PT STATES SHE WENT TO WORK AND MAY BE BACK LATER THIS EVENING OR IN THE MORNING FOR CM TO INFORM OF ABOVE. CM NOTIFIED JD OF [facility] OF REFERRAL, . CM FAXED REHAB REFERRAL TO JD [facility] AT [phone]. CM WAITING ADMISSION DETERMINATION FROM [facility] (PT STATES SHE HAS BEEN BANNED FROM ALL SENIOR CARE FACILITIES IN [facility]). CM ALSO WAITING ON ADMISSION DETERMINATION FROM [facility] REGARDING LATERAL TRANSFER REQUEST. DMITRI RAINES, CASE MANAGEMENT DCP- Discharge Planning Updated by [id number]: Dmitri Raines on 10/10/18 4:[address] Patient Name: PRADEEP DUBON Encounter No: [id number] : 1965 Primary Insurance: MEDICARE A & B Anticipated DC Date: 10-10-2018 Planned Disposition: [facility] Acute Care Facility External Planned Provider: [facility] [place] DCP follow-up note: CM RECEIVED ORDER FOR LTACH EVALUATION, SPOKE TO PT IN ROOM, DISCUSSED LTACH LOCATIONS AND PROVIDERS. PT WOULD LIKE TO STAY IN [place] FAMILY AND PT LIVE HERE. PT WOULD LIKE REFERRAL TO [facility]. CM CALLED ANABELA AT [facility], , PROVIDED REFERRAL INFORMATION. CM FAXED REFERRAL TO [facility] AT [phone]. CM WAITING ADMISSION DETERMINATION FROM [facility]. Dmitri Raines, CASE MANAGEMENT Appended by Dmitri Raines on 10/10/2018 16:01 COFFIN MAKER: CM RECEIVED MESSAGE FROM ANABELA OF [facility], THEY ARE NOT ABLE TO MEET PT'S NEEDS. CM MET WITH PT AND DAUGHTER,SIM. CM ADVISED OF ORDER FOR LTACH AND DECLINATION BY [facility]. SIM REPORTS BEING UNHAPPY WITH PT'S CARE IN THE HOSPITAL AND IS GOING TO CALL THE DOCTOR NOW AND REQUEST A TRANSFER TO [facility] IN [place]. SIM NOR PT HAVE SPOKEN TO A INSIDE ACCOUNT EXECUTIVE REGARDING COMPLAINTS ABOUT NURSING OR AIDE CARE. CM POINTED OUT THE NUMBER TO ELECTRIC STOVE INSTALLER AND ENCOURAGED BOTH PT AND DAUGHTER TO IMMEDIATELY REPORT ANY CARE NOT MEETING THEIR EXPECTATIONS. PT'S DAUGHTER STATED SHE IS STILL ASKING THE DOCTOR ABOUT A TRANSFER TO [facility]. CM CLARIFIED, [facility] VS [facility]. SIM STATES [facility], PT HAS BEEN THERE BEFORE AND RECEIVED GOOD CARE. CM EXPLAINED THAT INSURANCE MAY NOT PAY FOR TRANSFER AND TRANSPORTATON IF IT IS NOT TO A HIGHER LEVEL OF CARE; PT AND DAUGHTER BOTH REPORT UNDERSTANDING. THEY STILL WANT TRANSFERRED, REPORT CM CAN GO AHEAD AND SEND REFERRALS TO BOTH [facility] AND [facility] IN [place] FOR POSSIBLE OPTIONS AND SIM WILL CALL THE DOCTOR TO REQUEST TRANSFER. CM CALLED [facility], , PROVIDED REFERRAL TO [facility], FAXED REFERRAL TO [facility] AT [phone]. CM RECEIVED RETURN CALL FROM DELLA WHO INFORMED CM THAT PT ONLY HAS TWO MIDNIGHTS IN ICU DURING THIS STAY AND THAT MEDICARE WILL NOT COVER LTACH CARE SINCE PT WAS NOT IN THE ICU FOR AT LEAST THREE (3) MIDNIGHTS. CM CALLED [facility], , SPOKE TO YARELY, PROVIDED REFERRAL INFORMATION, FAXED REFERRAL TO [facility] AT [phone]. PT HAS BEEN DECLINED BY [facility] [place], [facility] IN [place]. CM WAITING ADMISSION DETERMINATION FROM [facility] IN [place]. CM ALSO WAITING DETERMINATION FROM [facility] [place] REGARDING TRANSFER REQUEST PER PT AND FAMILY. DMITRI RAINES, CASE MANAGEMENT Appended by Dmitri Raines on 10/10/2018 17:48 COFFIN MAKER: CM RECEIVE CALL FROM EDMOND ABREU OF [facility], ; EDMOND WILL CHECK WITH [employer] IN THE MORNING FOR BILLING CODES FOR TELEMETRY MONITORING WHICH MAY ASSIST IN QUALIFYING PT FOR LTACH WITHOUT THE THREE MIDNIGHTS IN ICU DURING HOSPITAL STAY. PT HAS BEEN DECLINED BY [facility] IN [place]. CM WAITING ADMISSION DETERMINATION FROM [facility] IN [place]. CM ALSO WAITING DETERMINATION FROM [facility] [place] REGARDING TRANSFER REQUEST PER PT AND FAMILY. DMITRI RAINES, CASE MANAGEMENT DCP- Discharge Planning Updated by [id number]: Herlinda Tsai on 10/10/18 2:[address] RECEIVED VERBAL REQUEST TO ARRANGE TRANSFER TO [facility] PER THE PATIENT AND FAMILY REQUEST. CM GEORGE HAS EXPLAINED TO FAMILY ABOUT LATERAL TRANSFER AND THE LIKELY [facility] THAT THE INSURANCE WILL NOT PAY FOR THE TRANSPORTATION THERE IF THERE IS A PHYSICIAN THAT WOULD ACCEPT HER. AT THAT TIME THEY FAMILY ASKED GEORGE TO TRY FOR LTACH IN [place] BUT HAVE SINCE CHANGED THIER MIND. @3107 TRANSFER CENTER WAS CALLED, SPOKE WITH FERNANDEZ. ALL INFORMATION GIVEN WITH TRANSFER DX OF SEPSIS PER FAMILY REQUEST. THE DOC TO DOC (PER TRISTEN MONTERROSO APN) IS TO BE DR LOBO. SHE GAVE ME HIS CELL PHONE NUMBER AND THIS WAS GIVEN TO THE TRANSFER CENTER. I FAXED FACE SHEET TO [phone], AND LEFT THE PHONE NUMBER TO THE FLOOR FOR HER AND THE PATIENTS BEDSIDE NURSES NAME WITH NOTATION THAT SHE WOULD BE HERE UNTIL 1900. WILL WAIT TO SEE IF THERE IS AN ACCEPTING. DCP- Discharge Planning Updated by [id number]: Dmitri Raines on 10/08/18 3:[address] Patient Name: PRADEEP DUBON Admission Status: ER Accout number: [id number] Admission Date: 09-28-2018 : 1965 Admission Diagnosis:FLU DUE TO UNIDENTIFIED INFLUENZA VIRUS W OTH RESP NOE Attending: SANDEE SANCHEZ Current LOS: 10 Anticipated DC Date: 10-10-2018 Planned Disposition: Inpatient Rehab Primary Insurance: MEDICARE A & B PLANNED EXTERNAL PROVIDER: [facility] INPATIENT REHAB Discharge Planning Comments: CM MET WITH PT AND DAUGHTER IN ROOM TO DISCUSS DISCHARGE PLANNING AND NEEDS. PRADEEP DUBON provided verbal consent to discuss current and ongoing needs with/in the presence of: DAUGHTERSIM. PT REPORTS LIVING AT HOME DEPENDENTLY WITH HER FAMILY WHO ASSISTS WITH BATHING AND MEDICATION MANAGEMENT. PT HAS A CANE WITH NO MEDICAL EQUIPMENT PROVIDER PREFERENCE. PT HAS NO OUTSIDE SERVICES ASSISTING IN THE HOME. CM DISCUSSED AVAILABILITY OF HOME HEALTH, REHAB SERVICES AND MEDICAL EQUIPMENT. PT REPORTS SHE WOULD LIKE TO BE CONSIDERED FOR REHAB AT [facility] PRIOR TO GOING HOME, REPORTS HER DAUGHTER WILL PICK HER UP FOR DISCHARGE HOME. IMPORTANT MESSAGE FROM MEDICARE PROVIDED AND EXPLAINED. CM WILL DISCUSS POSSIBILITY OF EVALUATION BY INPATIENT REHAB AT [facility] WITH THE PHYSICIAN. CM TO FOLLOW AND ASSIST NEEDED. Spot Sprayer: Dmitri Raines DCPIA - Discharge Planning Initial Assessment Updated by [id number]: Dmitri Raines on 10/08/18 4:38 pm * Is the patient Alert and Oriented? Yes * How many steps to enter\exit or inside your home? * PCP DR. DAYSI WEEKS * Pharmacy [facility] IN [place] * Preadmission Environment Home with Family * ADLs Partial Dependent * Partial ADLs (Assistance needed) Bathing Medication Management * Equipment Cane * Other Equipment USES CANE FOR AMBULATION AND BLINDNESS NO MEDICAL EQUIPMENT PROVIDER PREFERENCE * List name and contact numbers for known caregivers / representatives who currently or will assist patient after discharge: SIM MELARA, DTR, MICHAEL ORTA, SISTER, * Verbal permission to speak to the caregivers and representatives has been obtained from the patient. Yes * Community resources currently utilized Other * Please name any agencies selected above. OUTPATIENT DIALYSIS, [facility], MWF, 1130AM, [employer] [facility] * Additional services required to return to the preadmission environment? Yes * Can the patient safely return to the preadmission environment? Yes * Has this patient been hospitalized within the prior 30 days at any hospital? No Coverage Notice Reviewer: [id number] Sarahi Raines Notice Issued Date-Time: 10/08/2018 16:15 Notice Type: IM Discharge Notice Notice Delivered To: Family Member Relationship to Patient: Daughter Hub Lead Name: SIM MELARA Delivery Method: HAND - Hand Delivered Kaia Days: Prior Verbal Notification: Recipient Understood Notice: Yes Recipient Signature: Yes Med Rec Note Co-signed by Attending: Coverage Notice Comment: Reviewer: [id number] Sarahi Raines Notice Issued Date-Time: 10/11/2018 15:00 Notice Type: Patient Choice Letter Notice Delivered To: Patient Relationship to Patient: Hub Lead Name: Delivery Method: HAND - Hand Delivered Kaia Days: Prior Verbal Notification: Recipient Understood Notice: Yes Recipient Signature: Med Rec Note Co-signed by Attending: Coverage Notice Comment: THE PIN[place], VERBAL CONSENT; PT DID NOT WANT TO COME OUT FROM UNDER THE WARM BLANKET. Last DP export: 10/12/18 2:50 Patient Name: PRADEEP DUBON Page [id number] at 1624 All edits/amendments must be made on the electronic document DICTATION DATE: 10/12/181623 NOXIOUS WEEDS AND PEST INSPECTOR: LISA 10/12/181623 RPT#: [id number] DC DATE: STATUS: ADM IN [facility] [address] [place] [address] END OF REPORT
--- NOTE | ~2018-09-28 | MORECARE ---
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 Acute Care Facility Anticipated Discharge Date: 10/10/18 Discharge Date: Expected LOS: 12 Initial Reviewer: [id number] Initial Review Date: 10/08/2018 Generated: 10/10/18 6:51 pm Comments DCP- Discharge Planning Updated by [id number]: Dmitri Raines on 10/10/18 4:[address] Patient Name: PRADEEP DUBON Encounter No: [id number] : 1965 Primary Insurance: MEDICARE A & B Anticipated DC Date: 10-10-2018 Planned Disposition: Lead Supply Worker Acute Care Facility External Planned Provider: [facility] DCP follow-up note: CM RECEIVED ORDER FOR LTACH EVALUATION, SPOKE TO PT IN ROOM, DISCUSSED LTACH LOCATIONS AND PROVIDERS. PT WOULD LIKE TO STAY IN [place]ILY AND PT LIVE HERE. [facility] CM CALLED ANABELA AT [facility], , PROVIDED REFERRAL INFORMATION. CM FAXED REFERRAL TO [facility] AT [phone]. CM WAITING ADMISSION DETERMINATION FROM [facility]. Dmitri Raines, CASE MANAGEMENT Appended by Dmitri Raines on 10/10/2018 16:01 MEDICAL RECORDS LIBRARY PROFESSOR: CM RECEIVED MESSAGE FROM ANABELA OF [facility], THEY ARE NOT ABLE TO MEET PT'S NEEDS. CM MET WITH PT AND DAUGHTER,SIM. CM ADVISED OF ORDER FOR LTACH AND DECLINATION BY [facility]. SIM REPORTS BEING UNHAPPY WITH PT'S CARE IN THE HOSPITAL AND IS GOING TO CALL THE DOCTOR NOW AND REQUEST A TRANSFER TO [facility] IN [place]. SIM NOR PT HAVE SPOKEN TO A FAST FOOD DELIVERY DRIVER REGARDING COMPLAINTS ABOUT NURSING OR AIDE CARE. CM POINTED OUT THE NUMBER TO POULTRY SCIENTIST AND ENCOURAGED BOTH PT AND DAUGHTER TO IMMEDIATELY REPORT ANY CARE NOT MEETING THEIR EXPECTATIONS. PT'S DAUGHTER STATED SHE IS STILL ASKING THE DOCTOR ABOUT A TRANSFER TO [facility]. CM CLARIFIED, [facility] VS [facility]. SIM STATES [facility], PT HAS BEEN THERE BEFORE AND RECEIVED GOOD CARE. CM EXPLAINED THAT INSURANCE MAY NOT PAY FOR TRANSFER AND TRANSPORTATON IF IT IS NOT TO A HIGHER LEVEL OF CARE; PT AND DAUGHTER BOTH REPORT UNDERSTANDING. THEY STILL WANT TRANSFERRED, REPORT CM CAN GO AHEAD AND SEND REFERRALS TO BOTH [facility] AND [facility] IN [place] FOR POSSIBLE OPTIONS AND SIM WILL CALL THE DOCTOR TO REQUEST TRANSFER. CM CALLED [facility], , PROVIDED REFERRAL TO [facility], FAXED REFERRAL TO [facility] AT [phone]. CM RECEIVED RETURN CALL FROM DELLA WHO INFORMED CM THAT PT ONLY HAS TWO MIDNIGHTS IN ICU DURING THIS STAY AND THAT MEDICARE WILL NOT COVER LTACH CARE SINCE PT WAS NOT IN THE ICU FOR AT LEAST THREE (3) MIDNIGHTS. CM CALLED [facility], , SPOKE TO YARELY, PROVIDED REFERRAL INFORMATION, FAXED REFERRAL TO [facility] AT [phone]. PT HAS BEEN DECLINED BY [facility] [place]. CM WAITING ADMISSION DETERMINATION FROM [facility] IN [place]. CM ALSO WAITING DETERMINATION FROM [facility] REGARDING TRANSFER REQUEST PER PT AND FAMILY. DMITRI RAINES, CASE MANAGEMENT Appended by Dmitri Raines on 10/10/2018 17:48 MEDICAL RECORDS LIBRARY PROFESSOR: CM RECEIVE CALL FROM EDMOND BAREU OF [facility], ; EDMOND WILL CHECK WITH [employer] [facility] IN THE MORNING FOR BILLING CODES FOR TELEMETRY MONITORING WHICH MAY ASSIST IN QUALIFYING PT FOR LTACH WITHOUT THE THREE MIDNIGHTS IN ICU DURING HOSPITAL STAY. PT HAS BEEN DECLINED BY [facility] [place]. CM WAITING ADMISSION DETERMINATION FROM [facility] IN [place]. CM ALSO WAITING DETERMINATION FROM [facility] REGARDING TRANSFER REQUEST PER PT AND FAMILY. DMITRI RAINES, CASE MANAGEMENT DCP- Discharge Planning Updated by [id number]: Herlinda Jacobson on 10/10/18 2:[address] RECEIVED VERBAL REQUEST TO ARRANGE TRANSFER TO [facility] IN [place] PER THE PATIENT AND FAMILY REQUEST. CM GEORGE HAS EXPLAINED TO FAMILY ABOUT LATERAL TRANSFER AND THE LIKELY [facility] THAT THE INSURANCE WILL NOT PAY FOR THE TRANSPORTATION THERE IF THERE IS A PHYSICIAN THAT WOULD ACCEPT HER. AT THAT TIME THEY FAMILY ASKED GEORGE TO TRY FOR LTACH IN [place] BUT HAVE SINCE CHANGED THIER MIND. @4073 TRANSFER CENTER WAS CALLED, SPOKE WITH FERNANDEZ. ALL INFORMATION GIVEN WITH TRANSFER DX OF SEPSIS PER FAMILY REQUEST. THE DOC TO DOC (PER TRISTEN MONTERROSO APN) IS TO BE DR LOBO. SHE GAVE ME HIS CELL PHONE NUMBER AND THIS WAS GIVEN TO THE TRANSFER CENTER. I FAXED FACE SHEET TO [phone], AND LEFT THE PHONE NUMBER TO THE FLOOR FOR HER AND THE PATIENTS BEDSIDE NURSES NAME WITH NOTATION THAT SHE WOULD BE HERE UNTIL 1900. WILL WAIT TO SEE IF THERE IS AN ACCEPTING. DCP- Discharge Planning Updated by [id number]: Dmitri Raines on 10/08/18 3:[address] Patient Name: PRADEEP DUBON Admission Status: ER Accout number: [id number] Admission Date: 09-28-2018 : 1965 Admission Diagnosis:FLU DUE TO UNIDENTIFIED INFLUENZA VIRUS W OTH RESP NOE Attending: SANDEE SANCHEZ Current LOS: 10 Anticipated DC Date: 10-10-2018 Planned Disposition: Inpatient Rehab Primary Insurance: MEDICARE A & B PLANNED EXTERNAL PROVIDER: [facility] INPATIENT REH[facility] Discharge Planning Comments: CM MET WITH PT AND DAUGHTER IN ROOM TO DISCUSS DISCHARGE PLANNING AND NEEDS. PRADEEP DUBON provided verbal consent to discuss current and ongoing needs with/in the presence of: DAUGHTERSIM. PT REPORTS LIVING AT HOME DEPENDENTLY WITH HER FAMILY WHO ASSISTS WITH BATHING AND MEDICATION MANAGEMENT. PT HAS A CANE WITH NO MEDICAL EQUIPMENT PROVIDER PREFERENCE. PT HAS NO OUTSIDE SERVICES ASSISTING IN THE HOME. CM DISCUSSED AVAILABILITY OF HOME HEALTH, REHAB SERVICES AND MEDICAL EQUIPMENT. PT REPORTS SHE WOULD LIKE TO BE CONSIDERED FOR REHAB AT [facility] PRIOR TO GOING HOME, REPORTS HER DAUGHTER WILL PICK HER UP FOR DISCHARGE HOME. IMPORTANT MESSAGE FROM MEDICARE PROVIDED AND EXPLAINED. CM WILL DISCUSS POSSIBILITY OF EVALUATION BY INPATIENT REHAB AT [facility] WITH THE PHYSICIAN. CM TO FOLLOW AND ASSIST NEEDED. Signal Fitter: Dmitri Raines DCPIA - Discharge Planning Initial Assessment Updated by [id number]: Dmitri Raines on 10/08/18 4:38 pm * Is the patient Alert and Oriented? Yes * How many steps to enter\exit or inside your home? * PCP DR. DAYSI WEEKS * Pharmacy [facility] IN [place] * Preadmission Environment Home with Family * ADLs Partial Dependent * Partial ADLs (Assistance needed) Bathing Medication Management * Equipment Cane * Other Equipment USES CANE FOR AMBULATION AND BLINDNESS NO MEDICAL EQUIPMENT PROVIDER PREFERENCE * List name and contact numbers for known caregivers / representatives who currently or will assist patient after discharge: SIM MELARA, DTR, MICHAEL ORTA, SISTER, * Verbal permission to speak to the caregivers and representatives has been obtained from the patient. Yes * Community resources currently utilized Other * Please name any agencies selected above. OUTPATIENT DIALYSIS, [facility], MWF, 1130AM, [employer] [facility] [facility] * Additional services required to return to the preadmission environment? Yes * Can the patient safely return to the preadmission environment? Yes * Has this patient been hospitalized within the prior 30 days at any hospital? No Coverage Notice Reviewer: [id number] - Dmitri Raines Notice Issued Date-Time: 10/08/2018 16:15 Notice Type: IM Discharge Notice Notice Delivered To: Family Member Relationship to Patient: Daughter Chemistry Professor Name: SIM MELARA Delivery Method: HAND - Hand Delivered Kaia Days: Prior Verbal Notification: Recipient Understood Notice: Yes Recipient Signature: Yes Med Rec Note Co-signed by Attending: Coverage Notice Comment: Last DP export: 10/10/18 3:24 Patient Name: PRADEEP DUBON Page [id number] at 1751 All edits/amendments must be made on the electronic document DICTATION DATE: 10/10/181749 TRAY FILLER: LISA 10/10/181749 RPT#: [id number] MT DATE: STATUS: ADM IN [facility] [address] [place] [address] END OF REPORT
--- NOTE | ~2018-09-28 | MORECARE ---
CASE MANAGEMENT DISCHARGE SUMMARY PATIENT: PRADEEP DUBON UNIT: [id number] ADM DATE: 09/28/18 AGE: 53 : 61 SEX: F ROOM/BED: D.1972 AUTHOR: HORTENSIA,DOC PHYSICIAN: REFERRING PHYSICIAN: SANDEE SANCHEZ MD DATE OF SERVICE: 10/11/18 Discharge Plan Patient Name: PRADEEP DUBON Facility: [facility]:[place] : 1965 Planned Disposition: [facility] Att[facility] Acute Care Facility Anticipated Discharge Date: 10/10/18 Discharge Date: Expected LOS: 12 Initial Reviewer: [id number] Initial Review Date: 10/08/2018 Generated: 10/11/18 5:40 pm Comments DCP- Discharge Planning Updated by [id number]: Dmitri Raines on 10/10/18 4:[address] Patient Name: PRADEEP DUBON Encounter No: [id number] : 1965 Primary Insurance: MEDICARE A & B Anticipated DC Date: 10-10-2018 Planned Disposition: Game Attendant Acute Care Facility External Planned Provider: NURA GODWIN DCP follow-up note: CM RECEIVED ORDER FOR LTACH EVALUATION, SPOKE TO PT IN ROOM, DISCUSSED LTACH LOCATIONS AND PROVIDERS. PT WOULD LIKE TO STAY IN [place] [facility] AND PT LIVE HERE. [facility] CM CALLED ANABELA AT [facility], , PROVIDED REFERRAL INFORMATION. CM FAXED REFERRAL TO [facility] AT [phone]. CM WAITING ADMISSION DETERMINATION FROM [facility]. Dmitri Raines, CASE MANAGEMENT Appended by Dmitri Raines on 10/10/2018 16:01 HOME HEALTH TRAVEL OT: CM RECEIVED MESSAGE FROM ANABELA OF [facility], THEY ARE NOT ABLE TO MEET PT'S NEEDS. CM MET WITH PT AND DAUGHTER,SIM. CM ADVISED OF ORDER FOR LTACH AND DECLINATION BY BENJY [facility]. SIM REPORTS BEING UNHAPPY WITH PT'S CARE IN THE HOSPITAL AND IS GOING TO CALL THE DOCTOR NOW AND REQUEST A TRANSFER TO [facility] IN [place]. SIM NOR PT HAVE SPOKEN TO A ASSISTANT PROFESSOR OF SURGERY REGARDING COMPLAINTS ABOUT NURSING OR AIDE CARE. CM POINTED OUT THE NUMBER TO [employer] SUPERVISOR AND ENCOURAGED BOTH PT AND DAUGHTER TO IMMEDIATELY REPORT ANY CARE NOT MEETING THEIR EXPECTATIONS. PT'S DAUGHTER STATED SHE IS STILL ASKING THE DOCTOR ABOUT A TRANSFER TO [facility]. CM CLARIFIED, [facility] VS [facility]. SIM STATES [facility], PT HAS BEEN THERE BEFORE AND RECEIVED GOOD CARE. CM EXPLAINED THAT INSURANCE MAY NOT PAY FOR TRANSFER AND TRANSPORTATON IF IT IS NOT TO A HIGHER LEVEL OF CARE; PT AND DAUGHTER BOTH REPORT UNDERSTANDING. THEY STILL WANT TRANSFERRED, REPORT CM CAN GO AHEAD AND SEND REFERRALS TO BOTH [facility] AND [facility] IN [place] FOR POSSIBLE OPTIONS AND SIM WILL CALL THE DOCTOR TO REQUEST TRANSFER. CM CALLED [facility], , PROVIDED REFERRAL TO [place], FAXED REFERRAL TO [facility] AT [phone]. CM RECEIVED RETURN CALL FROM DELLA WHO INFORMED CM THAT PT ONLY HAS TWO MIDNIGHTS IN ICU DURING THIS STAY AND THAT MEDICARE WILL NOT COVER LTACH CARE SINCE PT WAS NOT IN THE ICU FOR AT LEAST THREE (3) MIDNIGHTS. CM CALLED [facility], , SPOKE TO YARELY, PROVIDED REFERRAL INFORMATION, FAXED REFERRAL TO [facility] AT [phone]. PT HAS BEEN DECLINED BY BENJY LYMAN [facility] IN [place]. CM WAITING ADMISSION DETERMINATION FROM [facility] IN [place]. CM ALSO WAITING DETERMINATION FROM [facility] REGARDING TRANSFER REQUEST PER PT AND FAMILY. DMITRI RAINES, CASE MANAGEMENT Appended by Dmitri Raines on 10/10/2018 17:48 HOME HEALTH TRAVEL OT: CM RECEIVE CALL FROM EDMOND ABREU OF [facility], ; EDMOND WILL CHECK WITH [employer] IN THE MORNING FOR BILLING CODES FOR TELEMETRY MONITORING WHICH MAY ASSIST IN QUALIFYING PT FOR LTACH WITHOUT THE THREE MIDNIGHTS IN ICU DURING HOSPITAL STAY. PT HAS BEEN [facility]CL[facility] [place]. CM WAITING ADMISSION DETERMINATION FROM [facility] IN [place]. CM ALSO WAITING DETERMINATION FROM [facility] REGARDING TRANSFER REQUEST PER PT AND FAMILY. DMITRI RAINSE, CASE MANAGEMENT DCP- Discharge Planning Updated by [id number]: Herlinda Jacobson on 10/10/18 2:[address] RECEIVED VERBAL REQUEST TO ARRANGE TRANSFER TO [facility] IN [place] PER THE PATIENT AND FAMILY REQUEST. CM GEORGE HAS EXPLAINED TO FAMILY ABOUT LATERAL TRANSFER AND THE LIKELY OQUENDO THAT THE INSURANCE WILL NOT PAY FOR THE TRANSPORTATION THERE IF THERE IS A PHYSICIAN THAT WOULD ACCEPT HER. AT THAT TIME THEY FAMILY ASKED GEORGE TO TRY FOR LTACH IN [place] BUT HAVE SINCE CHANGED THIER MIND. @3073 TRANSFER CENTER WAS CALLED, SPOKE WITH FERNANDEZ. ALL INFORMATION GIVEN WITH TRANSFER DX OF [facility] PER FAMILY REQUEST. THE DOC TO DOC (PER TRISTEN MONTERROSO APN) IS TO BE DR LOBO. SHE GAVE ME HIS CELL PHONE NUMBER AND THIS WAS GIVEN TO THE TRANSFER CENTER. I FAXED FACE SHEET TO [phone], AND LEFT THE PHONE NUMBER TO THE FLOOR FOR HER AND THE PATIENTS BEDSIDE NURSES NAME WITH NOTATION THAT SHE WOULD BE HERE UNTIL 1900. WILL WAIT TO SEE IF THERE IS AN ACCEPTING. DCP- Discharge Planning Updated by [id number]: Dmitri Raines on 10/08/18 3:[address] Patient Name: PRADEEP DUBON Admission Status: ER Accout number: [id number] Admission Date: 09-28-2018 : 1965 Admission Diagnosis:FLU DUE TO UNIDENTIFIED INFLUENZA VIRUS W OTH RESP NOE Attending: SANDEE SANCHEZ Current LOS: 10 Anticipated DC Date: 10-10-2018 Planned Disposition: Inpatient Rehab Primary Insurance: MEDICARE A & B PLANNED EXTERNAL PROVIDER: [facility]IENT [facility] Discharge Planning Comments: CM MET WITH PT AND DAUGHTER IN ROOM TO DISCUSS DISCHARGE PLANNING AND NEEDS. PRADEEP DUBON provided verbal consent to discuss current and ongoing needs with/in the presence of: DAUGHTERSIM. PT REPORTS LIVING AT HOME DEPENDENTLY WITH HER FAMILY WHO ASSISTS WITH BATHING AND MEDICATION MANAGEMENT. PT HAS A CANE WITH NO MEDICAL EQUIPMENT PROVIDER PREFERENCE. PT HAS NO OUTSIDE SERVICES ASSISTING IN THE HOME. CM DISCUSSED AVAILABILITY OF HOME HEALTH, REHAB SERVICES AND MEDICAL EQUIPMENT. PT REPORTS SHE WOULD LIKE TO BE CONSIDERED FOR REHAB AT [facility] PRIOR TO GOING HOME, REPORTS HER DAUGHTER WILL PICK HER UP FOR DISCHARGE HOME. IMPORTANT MESSAGE FROM MEDICARE PROVIDED AND EXPLAINED. CM WILL DISCUSS POSSIBILITY OF EVALUATION BY INPATIENT REHAB AT [facility] WITH THE PHYSICIAN. CM TO FOLLOW AND ASSIST NEEDED. Director Wholesale: Dmitri Raines DCPIA - Discharge Planning Initial Assessment Updated by [id number]: Dmitri Raines on 10/08/18 4:38 pm * Is the patient Alert and Oriented? Yes * How many steps to enter\exit or inside your home? * PCP DR. DAYSI WEEKS * [facility]acy [facility] IN [place] * Preadmission Environment Home with Family * ADLs Partial Dependent * Partial ADLs (Assistance needed) Bathing Medication Management * Equipment Cane * Other Equipment USES CANE FOR AMBULATION AND BLINDNESS NO MEDICAL EQUIPMENT PROVIDER PREFERENCE * List name and contact numbers for known caregivers / representatives who currently or will assist patient after discharge: SIM MELARA, DTR, MICHAEL ORTA, SISTER, * Verbal permission to speak to the caregivers and representatives has been obtained from the patient. Yes * Community resources currently utilized Other * Please name any agencies selected above. OUTPATIENT DIALYSIS, [facility], MWF, 1130AM, [employer] TRANSP[employer] VAN * Additional services required to return to the preadmission environment? Yes * Can the patient safely return to the preadmission environment? Yes * Has this patient been hospitalized within the prior 30 days at any hospital? No External Providers External Provider: [facility] and [facility] Next Contact Date: 10/11/2018 Service Request Date: Service Type: Resolution: Reviewer: Comments: Coverage Notice Reviewer: [id number] - Dmitri Raines Notice Issued Date-Time: 10/08/2018 16:15 Notice Type: IM Discharge Notice Notice Delivered To: Family Member Relationship to Patient: Daughter [employer] Consultant Name: SIM MELARA Delivery Method: HAND - Hand Delivered Kaia Days: Prior Verbal Notification: Recipient Understood Notice: Yes Recipient Signature: Yes Med Rec Note Co-signed by Attending: Coverage Notice Comment: Last DP export: 10/10/18 4:51 Patient Name: PRADEEP DUBON Page [id number] at 1640 All edits/amendments must be made on the electronic document DICTATION DATE: 10/11/18 1640 ONCOLOGY PHARMACIST: LISA 10/11/18 1640 RPT#: [id number] DC DATE: STATUS: ADM IN [facility] [address] [place] [address] END OF REPORT
--- NOTE | ~2018-09-28 | MORECARE ---
CASE MANAGEMENT DISCHARGE SUMMARY PATIENT: PRADEEP DUBON UNIT: [id number] ADM DATE: 09/28/18 AGE: 53 : 61 SEX: F ROOM/BED: D.8773 AUTHOR: VICTOR MANUEL BAZAN PHYSICIAN: REFERRING PHYSICIAN: SANDEE SANCHEZ MD DATE OF SERVICE: 10/08/18 Discharge Plan Patient Name: PRADEEP DUBON Facility: [facility]:[place] : 1965 Planned Disposition: Inpatient Rehab Anticipated Discharge Date: 10/10/18 Discharge Date: Expected LOS: 12 Initial Reviewer: [id number] Initial Review Date: 10/08/2018 Generated: 10/08/18 5:27 pm Coverage Notice Reviewer: [id number] - Kin Newman Notice Issued Date-Time: 10/08/2018 16:15 Notice Type: IM Discharge Notice Notice Delivered To: Family Member Relationship to Patient: Daughter Chair Pad Maker Name: SIM MELARA Delivery Method: HAND - Hand Delivered Kaia Days: Prior Verbal Notification: Recipient Understood Notice: Yes Recipient Signature: Yes Med Rec Note Co-signed by Attending: Coverage Notice Comment: Patient Name: PRADEEP DUBON Page [id number] at 1627 All edits/amendments must be made on the electronic document DICTATION DATE: 10/08/181625 USER EXPERIENCE ANALYST: LISA 10/08/181625 RPT#: [id number] DC DATE: STATUS: ADM IN [place] [address] [place] [address] END OF REPORT
--- NOTE | ~2018-09-28 | MORECARE ---
CASE MANAGEMENT DISCHARGE SUMMARY PATIENT: PRADEEP DUBON UNIT: [id number] ADM DATE: 09/28/18 AGE: 53 : 61 SEX: F ROOM/BED: D.0981 AUTHOR: VICTOR MANUEL BAZAN PHYSICIAN: REFERRING PHYSICIAN: SANDEE SANCHEZ MD DATE OF SERVICE: 10/08/18 Discharge Plan Patient Name: PRADEEP DUBON [facility] : 1965 Planned Disposition: Inpatient Rehab Anticipated Discharge Date: 10/10/18 Discharge Date: Expected LOS: 12 Initial Reviewer: [email or web address] Initial Review Date: 10/08/2018 Generated: 10/08/18 5:43 pm Comments DCP- Discharge Planning Updated by [id number]: Kin Newman on 10/08/18 3:[address] Patient Name: PRADEEP DUBON Admission Status: ER Accout number: [id number] Admission Date: 09-28-2018 : 1965 Admission Diagnosis:FLU DUE TO UNIDENTIFIED INFLUENZA VIRUS W OTH RESP NOE Attending: SANDEE SANCHEZ Current LOS: 10 Anticipated DC Date: 10-10-2018 Planned Disposition: Inpatient Rehab Primary Insurance: MEDICARE A & B PLANNED EXTERNAL PROVIDER: [facility] IN[facility] Discharge Planning Comments: CM MET WITH PT AND DAUGHTER IN ROOM TO DISCUSS DISCHARGE PLANNING AND NEEDS. PRADEEP DUBON provided verbal consent to discuss current and ongoing needs with/in the presence of: DAUGHTERSIM. PT REPORTS LIVING AT HOME DEPENDENTLY WITH HER FAMILY WHO ASSISTS WITH BATHING AND MEDICATION MANAGEMENT. PT HAS A CANE WITH NO MEDICAL EQUIPMENT PROVIDER PREFERENCE. PT HAS NO OUTSIDE SERVICES ASSISTING IN THE HOME. CM DISCUSSED AVAILABILITY OF HOME HEALTH, REHAB SERVICES AND MEDICAL EQUIPMENT. PT REPORTS SHE WOULD LIKE TO BE CONSIDERED FOR REHAB AT [facility] PRIOR TO GOING HOME, REPORTS HER DAUGHTER WILL PICK HER UP FOR DISCHARGE HOME. IMPORTANT MESSAGE FROM MEDICARE PROVIDED AND EXPLAINED. CM WILL DISCUSS POSSIBILITY OF EVALUATION BY INPATIENT REHAB AT [facility] WITH THE PHYSICIAN. CM TO FOLLOW AND ASSIST NEEDED. Brim Cutter: Kin Newman DCPIA - Discharge Planning Initial Assessment Updated by [id number]: Kin Newman on 10/08/18 4:38 pm * Is the patient Alert and Oriented? Yes * How many steps to enter\exit or inside your home? * PCP DR. DAYSI WEEKS * [facility]acy [facility] IN [place] * Preadmission Environment Home with Family * ADLs Partial Dependent * Partial ADLs (Assistance needed) Bathing Medication Management * Equipment Cane * Other Equipment USES CANE FOR AMBULATION AND BLINDNESS NO MEDICAL EQUIPMENT PROVIDER PREFERENCE * List name and contact numbers for known caregivers / representatives who currently or will assist patient after discharge: SIM MELARA, DTR, MICHAEL SHERELIZABETHBRIGIDAMae, SISTER, * Verbal permission to speak to the caregivers and representatives has been obtained from the patient. Yes * Community resources currently utilized Other * Please name any agencies selected above. OUTPATIENT DIALYSIS, [facility], MWF, 1130AM, [employer] TRANSP[employer] [facility] * Additional services required to return to the preadmission environment? Yes * Can the patient safely return to the preadmission environment? Yes * Has this patient been hospitalized within the prior 30 days at any hospital? No Coverage Notice Reviewer: [id number] Sarahi Newman Notice Issued Date-Time: 10/08/2018 16:15 Notice Type: IM Discharge Notice Notice Delivered To: Family Member Relationship to Patient: Daughter Flange Turner Name: SIM MELARA Delivery Method: HAND - Hand Delivered Kaia Days: Prior Verbal Notification: Recipient Understood Notice: Yes Recipient Signature: Yes Med Rec Note Co-signed by Attending: Coverage Notice Comment: Last DP export: 10/08/18 3:27 Patient Name: PRADEEP DUBON Page [id number] at 1644 All edits/amendments must be made on the electronic document DICTATION DATE: 10/08/181642 PUTTIER: LISA 10/08/181642 RPT#: [id number] DC DATE: STATUS: ADM IN [facility] [address] [place] [address] END OF REPORT
--- NOTE | ~2018-09-28 | EC ---
PATIENT:PRADEEP DUBON DATE OF SERVICE: 09/28/18 SEX: F MEDICAL RECORD: [id number] DATE OF : [birth year] LOCATION:D.M2 D.211 AGE OF PATIENT: 53 ADMISSION DATE: 09/28/18 REFERRING PHYSICIAN: INTERPRETING PHYSICIAN: DAPHNE STEVEN MD ECHOCARDIOGRAM REPORT ECHO CHARGES 4 ECHO COMPLETE Date: 10/02/18 CLINICAL DIAGNOSIS: SBE ECHOCARDIOGRAPHIC MEASUREMENTS (adult normal given) AC root (d.<3.7cm) 3.2 cm LV Septum d (<1.2 cm> 1.4 cm Valve Excursion 1.7 cm LV Septum (systole) 1.7 cm Left Atria (s.<4.0cm> 2.9 cm LVPW d(<1.2cm) 0.8 cm RV (d.<2.3cm) 2.9 cm LVPW (sytole) 1.3 cm LV diastole(<5.6CM) 4.0 cm MV E-F(>70mm/sec) cm LV systole 2.6 cm LVOT Diameter 1.8 cm MV exc.(>10mm) cm Est.ejection fraction (50-75%) % DOPPLER: LVIT cm/sec A 90 cm/sec E 83 cm/sec LA cm/sec RVSP 48.8 mmHg LVOT 73 cm/sec AOP1/2T m/s Asc. Ao 159 cm/sec RVOT 63 cm/sec RA cm/sec PA 94 cm/sec AV Gradient Peak 10.2 mmHg AV Mean 4.6 mmHg AV Area 1.8 cm MV Gradient Peak 4.0 mmHg MV Mean 1.7 mmHg MV Area cm COMMENTS: Public Relations Supervisor: E[facility] Case Picker: 1 Dr. Steven TAPE# PACS Pericardial Effusion N DATE OF SERVICE: 10/02/2018 FINDINGS: 1. Left ventricular chamber size is within normal limits. Left ventricular systolic function is normal. Overall ejection fraction estimated 55%. 2. Left atrium, right atrium, and right ventricular chamber sizes are within normal limits. 3. Valvular structures have normal structure and motion. 4. Doppler interrogation reveals [id number] tricuspid regurgitation. No other valvular insufficiency or stenosis. Pulmonary systolic pressure is ECHOCARDIOGRAM REPORT [id number] PRADEEP DUBON estimated 48 mmHg. 5. No evidence of pericardial effusion or left ventricular thrombus. TRANSINT:[id number] Voice Confirmation ID: [id number] DOCUMENT ID: [id number] DAPHNE STEVEN MD at 1704 CC: [id number] DICTATION DATE: 10/03/18 1045 SVP PROGRAMMATIC TV: 10/03/18 1128 ADM IN [place] [id number] [place] [id number]
--- NOTE | ~2018-09-28 | MORECARE ---
CASE MANAGEMENT DISCHARGE SUMMARY PATIENT: PRADEEP DUBON UNIT: [id number] ADM DATE: 09/28/18 AGE: 53 : 61 SEX: F ROOM/BED: D.8380 AUTHOR: HORTENSIA,DOC PHYSICIAN: REFERRING PHYSICIAN: SANDEE SANCHEZ MD DATE OF SERVICE: 10/11/18 Discharge Plan Patient Name: PRADEEP DUBON Facility: [facility]:[place] : 1965 Planned Disposition: Acute Care Hospital Anticipated Discharge Date: 10/11/18 Discharge Date: Expected LOS: 13 Initial Reviewer: [id number] Initial Review Date: 10/08/2018 Generated: 10/11/18 5:52 pm Comments DCP- Discharge Planning Updated by [id number]: Dmitri Raines on 10/10/18 4:[address] Patient Name: PRADEEP DUBON Encounter No: [id number] : 1965 Primary Insurance: MEDICARE A & B Anticipated DC Date: 10-10-2018 Planned Disposition: Fdc Acute Care Facility External Planned Provider: NURA GODWIN DCP follow-up note: CM RECEIVED ORDER FOR LTACH EVALUATION, SPOKE TO PT IN ROOM, DISCUSSED LTACH LOCATIONS AND PROVIDERS. PT WOULD LIKE TO STAY IN [place] [facility] AND PT LIVE HERE. [facility] CM CALLED ANABELA AT [facility], , PROVIDED REFERRAL INFORMATION. CM FAXED REFERRAL TO [facility] AT [phone]. CM WAITING ADMISSION DETERMINATION FROM [facility]. Dmitri Raines, CASE MANAGEMENT Appended by Dmitri Raines on 10/10/2018 16:01 DIRECTOR COMPLIANCE: CM RECEIVED MESSAGE FROM ANABELA OF [facility], THEY ARE NOT ABLE TO MEET PT'S NEEDS. CM MET WITH PT AND DAUGHTER,SIM. CM ADVISED OF ORDER FOR LTACH AND DECLINATION BY [facility]. SIM REPORTS BEING UNHAPPY WITH PT'S CARE IN THE HOSPITAL AND IS GOING TO CALL THE DOCTOR NOW AND REQUEST A TRANSFER TO [facility] IN [place]. SIM NOR PT HAVE SPOKEN TO A HYDRAULIC CHAIR ASSEMBLER REGARDING COMPLAINTS ABOUT NURSING OR AIDE CARE. CM POINTED OUT THE NUMBER TO [employer] AND ENCOURAGED BOTH PT AND DAUGHTER TO IMMEDIATELY REPORT ANY CARE NOT MEETING THEIR EXPECTATIONS. PT'S DAUGHTER STATED SHE IS STILL ASKING THE DOCTOR ABOUT A TRANSFER TO [facility]. CM CLARIFIED, [facility] VS [facility]. SIM STATES [facility], PT HAS BEEN THERE BEFORE AND RECEIVED GOOD CARE. CM EXPLAINED THAT INSURANCE MAY NOT PAY FOR TRANSFER AND TRANSPORTATON IF IT IS NOT TO A HIGHER LEVEL OF CARE; PT AND DAUGHTER BOTH REPORT UNDERSTANDING. THEY STILL WANT TRANSFERRED, REPORT CM CAN GO AHEAD AND SEND REFERRALS TO BOTH [facility] AND [facility] IN [place] FOR POSSIBLE OPTIONS AND SIM WILL CALL THE DOCTOR TO REQUEST TRANSFER. CM CALLED [facility], , PROVIDED REFERRAL TO [facility], FAXED REFERRAL TO [facility] AT [phone]. CM RECEIVED RETURN CALL FROM DELLA WHO INFORMED CM THAT PT ONLY HAS TWO MIDNIGHTS IN ICU DURING THIS STAY AND THAT MEDICARE WILL NOT COVER LTACH CARE SINCE PT WAS NOT IN THE ICU FOR AT LEAST THREE (3) MIDNIGHTS. CM CALLED [facility], , SPOKE TO YARELY, PROVIDED REFERRAL INFORMATION, FAXED REFERRAL TO [facility] AT [phone]. PT HAS BEEN DECLINED BY [facility]MAN [facility], [facility] IN [place]. CM WAITING ADMISSION DETERMINATION FROM [facility] IN [place]. CM ALSO WAITING DETERMINATION FROM [facility] REGARDING TRANSFER REQUEST PER PT AND FAMILY. DMITRI RAINES, CASE MANAGEMENT Appended by Dmitri Raines on 10/10/2018 17:48 DIRECTOR COMPLIANCE: CM RECEIVE CALL FROM EDMOND ABREU OF [facility], ; EDMOND WILL CHECK WITH [employer] IN THE MORNING FOR BILLING CODES FOR TELEMETRY MONITORING WHICH MAY ASSIST IN QUALIFYING PT FOR LTACH WITHOUT THE THREE MIDNIGHTS IN ICU DURING HOSPITAL STAY. PT HAS BEEN DECLINED BY [facility] PENDING SALE TO [facility] IN [place]. CM WAITING ADMISSION DETERMINATION FROM [facility] IN [place]. CM ALSO WAITING DETERMINATION FROM [facility] REGARDING TRANSFER REQUEST PER PT AND FAMILY. DMITRI RAINES, CASE MANAGEMENT DCP- Discharge Planning Updated by [id number]: Herlinda Jacobson on 10/10/18 2:[address] RECEIVED VERBAL REQUEST TO ARRANGE TRANSFER TO [facility] IN [place] PER THE PATIENT AND FAMILY REQUEST. CM GEORGE HAS EXPLAINED TO FAMILY ABOUT LATERAL TRANSFER AND THE LIKELY OQUENDO THAT THE INSURANCE WILL NOT PAY FOR THE TRANSPORTATION THERE IF THERE IS A PHYSICIAN THAT WOULD ACCEPT HER. AT THAT TIME THEY FAMILY ASKED GEORGE TO TRY FOR LTACH IN [place] BUT HAVE SINCE CHANGED THIER MIND. @1513 TRANSFER CENTER WAS CALLED, SPOKE WITH FERNANDEZ. ALL INFORMATION GIVEN WITH TRANSFER DX OF SEPSIS PER FAMILY REQUEST. THE DOC TO DOC (PER TRISTEN MONTERROSO APN) IS TO BE DR LOBO. SHE GAVE ME HIS CELL PHONE NUMBER AND THIS WAS GIVEN TO THE TRANSFER CENTER. I FAXED FACE SHEET TO [phone], AND LEFT THE PHONE NUMBER TO THE FLOOR FOR HER AND THE PATIENTS BEDSIDE NURSES NAME WITH NOTATION THAT SHE WOULD BE HERE UNTIL 1900. WILL WAIT TO SEE IF THERE IS AN ACCEPTING. DCP- Discharge Planning Updated by [id number]: Dmitri Raines on 10/08/18 3:[address] Patient Name: PRADEEP DUBON Admission Status: ER Accout number: [id number] Admission Date: 09-28-2018 : 1965 Admission Diagnosis:FLU DUE TO UNIDENTIFIED INFLUENZA VIRUS W OTH RESP NOE Attending: SANDEE SANCHEZ Current LOS: 10 Anticipated DC Date: 10-10-2018 Planned Disposition: Inpatient Rehab Primary Insurance: MEDICARE A & B PLANNED EXTERNAL PROVIDER: [facility] Discharge Planning Comments: CM MET WITH PT AND DAUGHTER IN ROOM TO DISCUSS DISCHARGE PLANNING AND NEEDS. PRADEEP DUBON provided verbal consent to discuss current and ongoing needs with/in the presence of: DAUGHTERSIM. PT REPORTS LIVING AT HOME DEPENDENTLY WITH HER FAMILY WHO ASSISTS WITH BATHING AND MEDICATION MANAGEMENT. PT HAS A CANE WITH NO MEDICAL EQUIPMENT PROVIDER PREFERENCE. PT HAS NO OUTSIDE SERVICES ASSISTING IN THE HOME. CM DISCUSSED AVAILABILITY OF HOME HEALTH, REHAB SERVICES AND MEDICAL EQUIPMENT. PT REPORTS SHE WOULD LIKE TO BE CONSIDERED FOR REHAB AT [facility] PRIOR TO GOING HOME, REPORTS HER DAUGHTER WILL PICK HER UP FOR DISCHARGE HOME. IMPORTANT MESSAGE FROM MEDICARE PROVIDED AND EXPLAINED. CM WILL DISCUSS POSSIBILITY OF EVALUATION BY INPATIENT REHAB AT [facility] WITH THE PHYSICIAN. CM TO FOLLOW AND ASSIST NEEDED. Forestry Laborer: Dmitri Raines DCPIA - Discharge Planning Initial Assessment Updated by [id number]: Dmitri Raines on 10/08/18 4:38 pm * Is the patient Alert and Oriented? Yes * How many steps to enter\exit or inside your home? * PCP DR. DAYSI WEEKS * Pharmacy [facility] IN [place] * Preadmission Environment Home with Family * ADLs Partial Dependent * Partial ADLs (Assistance needed) Bathing Medication Management * Equipment Cane * Other Equipment USES CANE FOR AMBULATION AND BLINDNESS NO MEDICAL EQUIPMENT PROVIDER PREFERENCE * List name and contact numbers for known caregivers / representatives who currently or will assist patient after discharge: SIM MELARA, DTR, MICHAEL ORTA, SISTER, * Verbal permission to speak to the caregivers and representatives has been obtained from the patient. Yes * Community resources currently utilized Other * Please name any agencies selected above. OUTPATIENT DIALYSIS, [facility], MWF, 1130AM, [employer] [facility] * Additional services required to return to the preadmission environment? Yes * Can the patient safely return to the preadmission environment? Yes * Has this patient been hospitalized within the prior 30 days at any hospital? No Coverage Notice Reviewer: [id number] - Dmitri Raines Notice Issued Date-Time: 10/08/2018 16:15 Notice Type: IM Discharge Notice Notice Delivered To: Family Member Relationship to Patient: Daughter Bending Machine Operator Name: SIM MELARA Delivery Method: HAND - Hand Delivered Kaia Days: Prior Verbal Notification: Recipient Understood Notice: Yes Recipient Signature: Yes Med Rec Note Co-signed by Attending: Coverage Notice Comment: Last DP export: 10/11/18 3:40 Patient Name: PRADEEP DUBON Page [id number] at 1652 All edits/amendments must be made on the electronic document DICTATION DATE: 10/11/181651 ACCOUNT MANAGER SALES REPRESENTATIVE: LISA 10/11/181651 RPT#: [id number] DC DATE: STATUS: ADM IN [facility] [address] [place] [address] END OF REPORT
--- NOTE | ~2018-09-28 | MORECARE ---
CASE MANAGEMENT DISCHARGE SUMMARY PATIENT: PRADEEP DUBON UNIT: [id number] ADM DATE: 09/28/18 AGE: 53 : 61 SEX: F ROOM/BED: D.6560 AUTHOR: VICTOR MANUEL BAZAN PHYSICIAN: REFERRING PHYSICIAN: SANDEE SANCHEZ MD DATE OF SERVICE: 10/10/18 Discharge Plan Patient Name: PRADEEP DUBON Facility: [facility]:[place] : 1965 Planned Disposition: Director Product Acute Care Facility Anticipated Discharge Date: 10/10/18 Discharge Date: Expected LOS: 12 Initial Reviewer: [id number] Initial Review Date: 10/08/2018 Generated: 10/10/18 4:33 pm Comments DCP- Discharge Planning Updated by [id number]: Herlinda Jacobson on 10/10/18 2:[address] RECEIVED VERBAL REQUEST TO ARRANGE TRANSFER TO [facility] IN [place] PER THE PATIENT AND FAMILY REQUEST. TRACIE VAZQUEZ HAS EXPLAINED TO FAMILY ABOUT LATERAL TRANSFER AND THE LIKELY OQUENDO THAT THE INSURANCE WILL NOT PAY FOR THE TRANSPORTATION THERE IF THERE IS A PHYSICIAN THAT WOULD ACCEPT HER. AT THAT TIME THEY FAMILY ASKED GEORGE TO TRY FOR LTACH IN [place] BUT HAVE SINCE CHANGED THIER MIND. @0526 TRANSFER CENTER WAS CALLED, SPOKE WITH FERNANDEZ. ALL INFORMATION GIVEN WITH TRANSFER DX OF SEPSIS PER FAMILY REQUEST. THE DOC TO DOC (PER TRISTEN MONTERROSO APN) IS TO BE DR LOBO. SHE GAVE ME HIS CELL PHONE NUMBER AND THIS WAS GIVEN TO THE TRANSFER CENTER. I FAXED FACE SHEET TO [phone], AND LEFT THE PHONE NUMBER TO THE FLOOR FOR HER AND THE PATIENTS BEDSIDE NURSES NAME WITH NOTATION THAT SHE WOULD BE HERE UNTIL 1900. WILL WAIT TO SEE IF THERE IS AN ACCEPTING. DCP- Discharge Planning Updated by [id number]: Kin Newman on 10/10/18 9:[address] Patient Name: PRADEEP DUBON Encounter No: [id number] : 1965 Primary Insurance: MEDICARE A & B Anticipated DC Date: 10-10-2018 Planned Disposition: Director Product Acute Care Facility External Planned Provider: NURA GODWIN DCP follow-up note: CM RECEIVED ORDER FOR LTACH EVALUATION, SPOKE TO PT IN ROOM, DISCUSSED LTACH LOCATIONS AND PROVIDERS. PT WOULD LIKE TO STAY IN [place] [facility]ILY AND PT LIVE HERE. PT WOULD LIKE REFERRAL TO [facility]. CM CALLED ANABELA AT [facility], , PROVIDED REFERRAL INFORMATION. CM FAXED REFERRAL TO [facility] AT [phone]. CM WAITING ADMISSION DETERMINATION FROM [facility]. Kin Newman, CASE MANAGEMENT DCP- Discharge Planning Updated by [id number]: Kin Newman on 10/08/18 3:[address] Patient Name: PRADEEP DUBON Admission Status: ER Accout number: [id number] Admission Date: 09-28-2018 : 1965 Admission Diagnosis:FLU DUE TO UNIDENTIFIED INFLUENZA VIRUS W OTH RESP NOE Attending: SANDEE SANCHEZ Current LOS: 10 Anticipated DC Date: 10-10-2018 Planned Disposition: Inpatient Rehab Primary Insurance: MEDICARE A & B PLANNED EXTERNAL PROVIDER: [facility] INPATIENT REHAB Discharge Planning Comments: CM MET WITH PT AND DAUGHTER IN ROOM TO DISCUSS DISCHARGE PLANNING AND NEEDS. PRADEEP DUBON provided verbal consent to discuss current and ongoing needs with/in the presence of: DAUGHTERSIM. PT REPORTS LIVING AT HOME DEPENDENTLY WITH HER FAMILY WHO ASSISTS WITH BATHING AND MEDICATION MANAGEMENT. PT HAS A CANE WITH NO MEDICAL EQUIPMENT PROVIDER PREFERENCE. PT HAS NO OUTSIDE SERVICES ASSISTING IN THE HOME. CM DISCUSSED AVAILABILITY OF HOME HEALTH, REHAB SERVICES AND MEDICAL EQUIPMENT. PT REPORTS SHE WOULD LIKE TO BE CONSIDERED FOR REHAB AT [facility] PRIOR TO GOING HOME, REPORTS HER DAUGHTER WILL PICK HER UP FOR DISCHARGE HOME. IMPORTANT MESSAGE FROM MEDICARE PROVIDED AND EXPLAINED. CM WILL DISCUSS POSSIBILITY OF EVALUATION BY INPATIENT REHAB AT [facility] WITH THE PHYSICIAN. CM TO FOLLOW AND ASSIST NEEDED. Inspector And Hand Packager: Kin Newman DCPIA - Discharge Planning Initial Assessment Updated by [id number]: Kin Newman on 10/08/18 4:38 pm * Is the patient Alert and Oriented? Yes * How many steps to enter\exit or inside your home? * PCP DR. DAYSI WEEKS * Pharmacy [facility] IN [place] * Preadmission Environment Home with Family * ADLs Partial Dependent * Partial ADLs (Assistance needed) Bathing Medication Management * Equipment Cane * Other Equipment USES CANE FOR AMBULATION AND BLINDNESS NO MEDICAL EQUIPMENT PROVIDER PREFERENCE * List name and contact numbers for known caregivers / representatives who currently or will assist patient after discharge: SIM MELARA, DTR, MICHAEL ORTA, SISTER, * Verbal permission to speak to the caregivers and representatives has been obtained from the patient. Yes * Community resources currently utilized Other * Please name any agencies selected above. OUTPATIENT DIALYSIS, [facility], MWF, 1130AM, [employer] [facility] [facility] * Additional services required to return to the preadmission environment? Yes * Can the patient safely return to the preadmission environment? Yes * Has this patient been hospitalized within the prior 30 days at any hospital? No Coverage Notice Reviewer: [id number] Sarahi Newman Notice Issued Date-Time: 10/08/2018 16:15 Notice Type: IM Discharge Notice Notice Delivered To: Family Member Relationship to Patient: Daughter Fisher Name: SIM MELARA Delivery Method: HAND - Hand Delivered Kaia Days: Prior Verbal Notification: Recipient Understood Notice: Yes Recipient Signature: Yes Med Rec Note Co-signed by Attending: Coverage Notice Comment: Last DP export: 10/10/18 9:20 Patient Name: PRADEEP DUBON Page [id number] at 1533 All edits/amendments must be made on the electronic document DICTATION DATE: 10/10/181532 MUSIC LIBRARY ASSISTANT: LISA 10/10/181532 RPT#: [id number] DC DATE: STATUS: ADM IN [facility] [address] [place] [address] END OF REPORT
--- NOTE | ~2018-09-28 | MORECARE ---
CASE MANAGEMENT DISCHARGE SUMMARY PATIENT: PRADEEP DUBON UNIT: [id number] ADM DATE: 09/28/18 AGE: 53 : 61 SEX: F ROOM/BED: D.5321 AUTHOR: VICTOR MANUEL BAZAN PHYSICIAN: REFERRING PHYSICIAN: SANDEE SANCHEZ MD DATE OF SERVICE: 10/15/18 Discharge Plan Patient Name: PRADEEP DUBON Facility: [facility]:[place] : 1965 Planned Disposition: Acute Care Hospital Anticipated Discharge Date: 10/14/18 Discharge Date: 10/14/2018 Expected LOS: 16 Initial Reviewer: [email or web address] Initial Review Date: 10/08/2018 Generated: 10/15/18 10:46 am Comments DCP- Discharge Planning Updated by [id number]: Kimberly Horvath on 10/14/18 6:[address] 1730 PATIENT FOR TRANSFERE TO [facility] THIS PM VIA AMBULANCE. COBRA SIGNED BY DR GRIFFIN. TO BE COMPLETED. PRIMARY NURSE TO COMPLETE NURSING TRANSFER FORM. PCS SIGNED BY MD AND FACE SHEET ATTACHED. LIFENET AWARE OF TRANSFER. CHART COPIED. NURSE CALLED REPORT AND [facility] RECEIVING NURSE DELAYED TRANSFER SAYING THE BED IS NOT READY. AWAITING CALL BACK. DCP- Discharge Planning Updated by [id number]: Dmitri Newman on 10/12/18 1:[address] Patient Name: PRADEEP DUBON Encounter No: [id number] : 1965 Primary Insurance: MEDICARE A & B Anticipated DC Date: 10-11-2018 Planned Disposition: Acute Care Hospital External Planned Provider: [facility] DCP follow-up note: CM SPOKE TO RN TRACIE TSAI WHO ADVISED PT HAS BEEN ACCEPTED TO [facility] BY DR. REAL. TRANSFER CENTER WILL CALL [facility] AFTER 1600 HOURS INSTRUCTED BY [facility] TO CHECK BED AVAILABILITY. TRANSFER CENTER WILL NOTIFY MED 2 NURSE WHEN BED BECOMES AVAILABLE. CM NOTIFIED PT IN ROOM, PT IN AGREEMENT WITH TRANSFER TO [facility], ASKED CM TO CALL SIM PADILLA. CM CALLED SIM MELARA, DAUGHTER, , WHO IS ALSO IN AGREEMENT WITH TRANSFER TO [facility]. TRANSFER CENTER WILL NOTIFY MED 2 NURSE WHEN BED BECOMES AVAILABLE AT [facility]. Dmitri Newman, CASE MANAGEMENT DCP- Discharge Planning Updated by [id number]: Dmitri Newman on 10/11/18 3:[address] Patient Name: PRADEEP DUBON Encounter No: [id number] : 1965 Primary Insurance: MEDICARE A & B Anticipated DC Date: 10-11-2018 Planned Disposition: Acute Care Hospital External Planned Provider: [facility] DCP follow-up note: CM RECEIVED CALL FROM [facility] IN [place]; PT NOT MEETING MEDICARE GUIDELINES FOR LTACH ADMISSION. PT HAS ALSO BEEN DECLINED BY [facility] ([facility] AND [facility] ([facility] IN [place] FOR SAME REASONS. CM SPOKE TO PT IN ROOM, INFORMED HER THAT [facility] IN [place] DECLINED AND THAT WE ARE WAITING ON [facility] IN [place] DETERMINATION. CM DISCUSSED RETIREMENT FACILITY REHAB PLACEMENT. 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 CM ASKED IF CM COULD AT LEAST TRY THE [facility] IN [place], PT STATED YES. PT'S DAUGHTER WAS NOT IN ROOM, PT STATES SHE WENT TO WORK AND MAY BE BACK LATER THIS EVENING OR IN THE MORNING FOR CM TO INFORM OF ABOVE. CM NOTIFIED JD OF [facility] OF REFERRAL, . CM FAXED REHAB REFERRAL TO JD OF [facility] AT [phone]. CM WAITING ADMISSION DETERMINATION FROM THE [facility] (PT STATES SHE HAS BEEN BANNED FROM ALL RETIREMENT FACILITIES IN [facility]). CM ALSO WAITING ON ADMISSION DETERMINATION FROM [facility] REGARDING LATERAL TRANSFER REQUEST. DMITRI NEWMAN, CASE MANAGEMENT DCP- Discharge Planning Updated by [id number]: Dmitri Newman on 10/10/18 4:[address] Patient Name: PRADEEP DUBON Encounter No: [id number] : 1965 Primary Insurance: MEDICARE A & B Anticipated DC Date: 10-10-2018 Planned Disposition: Sales Rep Acute Care Facility External Planned Provider: [facility] [place] DCP follow-up note: CM RECEIVED ORDER FOR LTACH EVALUATION, SPOKE TO PT IN ROOM, DISCUSSED LTACH LOCATIONS AND PROVIDERS. PT WOULD LIKE TO STAY IN [place] FAMILY AND PT LIVE HERE. PT WOULD LIKE REFERRAL TO [facility]. CM CALLED ANABELA AT [facility], , PROVIDED REFERRAL INFORMATION. CM FAXED REFERRAL TO [facility] AT [phone]. CM WAITING ADMISSION DETERMINATION FROM [facility]. Dmitri Newman, CASE MANAGEMENT Appended by Dmitri Newman on 10/10/2018 16:01 FINE GRADER: CM RECEIVED MESSAGE FROM ANABELA OF [facility], THEY ARE NOT ABLE TO MEET PT'S NEEDS. CM MET WITH PT AND DAUGHTER,SIM. CM ADVISED OF ORDER FOR LTACH AND [facility]. SIM REPORTS BEING UNHAPPY WITH PT'S CARE IN THE HOSPITAL AND IS GOING TO CALL THE DOCTOR NOW AND REQUEST A TRANSFER TO [facility] IN [place]. SIM NOR PT HAVE SPOKEN TO A LSAT INSTRUCTOR REGARDING COMPLAINTS ABOUT NURSING OR AIDE CARE. CM POINTED OUT THE NUMBER TO EXECUTIVE PRODUCER AND ENCOURAGED BOTH PT AND DAUGHTER TO IMMEDIATELY REPORT ANY CARE NOT MEETING THEIR EXPECTATIONS. PT'S DAUGHTER STATED SHE IS STILL ASKING THE DOCTOR ABOUT A TRANSFER TO [facility]. CM CLARIFIED, [facility] VS [facility]. SIM STATES [facility], PT HAS BEEN THERE BEFORE AND RECEIVED GOOD CARE. CM EXPLAINED THAT INSURANCE MAY NOT PAY FOR TRANSFER AND TRANSPORTATON IF IT IS NOT TO A HIGHER LEVEL OF CARE; PT AND DAUGHTER BOTH REPORT UNDERSTANDING. THEY STILL WANT TRANSFERRED, REPORT CM CAN GO AHEAD AND SEND REFERRALS TO BOTH [facility] AND [facility] IN [place] FOR POSSIBLE OPTIONS AND SIM WILL CALL THE DOCTOR TO REQUEST TRANSFER. CM CALLED [facility], , PROVIDED REFERRAL TO [place], FAXED REFERRAL TO [facility] AT [phone]. CM RECEIVED RETURN CALL FROM [facility] WHO INFORMED CM THAT PT ONLY HAS TWO MIDNIGHTS IN ICU DURING THIS STAY AND THAT MEDICARE WILL NOT COVER LTACH CARE SINCE PT WAS NOT IN THE ICU FOR AT LEAST THREE (3) MIDNIGHTS. CM CALLED [facility] LTACH, , SPOKE TO YARELY, PROVIDED REFERRAL INFORMATION, FAXED REFERRAL TO [facility] AT [phone]. PT HAS BEEN DECLINED BY [facility], [facility] IN [place]. CM WAITING ADMISSION DETERMINATION FROM [facility] IN [place]. CM ALSO WAITING DETERMINATION FROM [facility] REGARDING TRANSFER REQUEST PER PT AND FAMILY. DMITRI NEWMAN, CASE MANAGEMENT Appended by Dmitri Newman on 10/10/2018 17:48 FINE GRADER: CM RECEIVE CALL FROM EDMOND ABREU OF [facility], ; EDMOND WILL CHECK WITH [email or web address] BILLING IN THE MORNING FOR BILLING CODES FOR TELEMETRY MONITORING WHICH MAY ASSIST IN QUALIFYING PT FOR LTACH WITHOUT THE THREE MIDNIGHTS IN ICU DURING HOSPITAL STAY. PT HAS BEEN DECLINED BY [facility] IN [place]. CM WAITING ADMISSION DETERMINATION FROM [facility] IN [place]. CM ALSO WAITING DETERMINATION FROM [facility] REGARDING TRANSFER REQUEST PER PT AND FAMILY. DMITRI NEWMAN, CASE MANAGEMENT DCP- Discharge Planning Updated by [id number]: Herlinda Tsai on 10/10/18 2:[address] RECEIVED VERBAL REQUEST TO ARRANGE TRANSFER TO [facility] [place] PER THE PATIENT AND FAMILY REQUEST. CM GEORGE HAS EXPLAINED TO FAMILY ABOUT LATERAL TRANSFER AND THE [facility] THAT THE INSURANCE WILL NOT PAY FOR THE TRANSPORTATION THERE IF THERE IS A PHYSICIAN THAT WOULD ACCEPT HER. AT THAT TIME THEY FAMILY ASKED GEORGE TO TRY FOR LTACH IN [place] BUT HAVE SINCE CHANGED THIER MIND. @8904 TRANSFER CENTER WAS CALLED, SPOKE WITH FERNANDEZ. ALL INFORMATION GIVEN WITH TRANSFER DX OF SEPSIS PER FAMILY REQUEST. THE DOC TO DOC (PER TRISTEN MONTERROSO APN) IS TO BE DR LOBO. SHE GAVE ME HIS CELL PHONE NUMBER AND THIS WAS GIVEN TO THE TRANSFER CENTER. I FAXED FACE SHEET TO [phone], AND LEFT THE PHONE NUMBER TO THE FLOOR FOR HER AND THE PATIENTS BEDSIDE NURSES NAME WITH NOTATION THAT SHE WOULD BE HERE UNTIL 1900. WILL WAIT TO SEE IF THERE IS AN ACCEPTING. DCP- Discharge Planning Updated by [id number]: Dmitri Newman on 10/08/18 3:[address] Patient Name: PRADEEP DUBON Admission Status: ER Accout number: [id number] Admission Date: 09-28-2018 : 1965 Admission Diagnosis:FLU DUE TO UNIDENTIFIED INFLUENZA VIRUS W OTH RESP NOE Attending: SANDEE SANCHEZ Current LOS: 10 Anticipated DC Date: 10-10-2018 Planned Disposition: Inpatient Rehab Primary Insurance: MEDICARE A & B PLANNED EXTERNAL PROVIDER: [facility] INPATIENT REHAB Discharge Planning Comments: CM MET WITH PT AND DAUGHTER IN ROOM TO DISCUSS DISCHARGE PLANNING AND NEEDS. PRADEEP DUBON provided verbal consent to discuss current and ongoing needs with/in the presence of: DAUGHTERSIM. PT REPORTS LIVING AT HOME DEPENDENTLY WITH HER FAMILY WHO ASSISTS WITH BATHING AND MEDICATION MANAGEMENT. PT HAS A CANE WITH NO MEDICAL EQUIPMENT PROVIDER PREFERENCE. PT HAS NO OUTSIDE SERVICES ASSISTING IN THE HOME. CM DISCUSSED AVAILABILITY OF HOME HEALTH, REHAB SERVICES AND MEDICAL EQUIPMENT. PT REPORTS SHE WOULD LIKE TO BE CONSIDERED FOR REHAB AT [facility] PRIOR TO GOING HOME, REPORTS HER DAUGHTER WILL PICK HER UP FOR DISCHARGE HOME. IMPORTANT MESSAGE FROM MEDICARE PROVIDED AND EXPLAINED. CM WILL DISCUSS POSSIBILITY OF EVALUATION BY INPATIENT REHAB AT [facility] WITH THE PHYSICIAN. CM TO FOLLOW AND ASSIST NEEDED. Perianesthesia Rn: Dmitri Newman DCPIA - Discharge Planning Initial Assessment Updated by [id number]: Dmitri Newman on 10/08/18 4:38 pm * Is the patient Alert and Oriented? Yes * How many steps to enter\exit or inside your home? * PCP DR. DAYSI WEEKS * Pharmacy [facility] IN [place] * Preadmission Environment Home with Family * ADLs Partial Dependent * Partial ADLs (Assistance needed) Bathing Medication Management * Equipment Cane * Other Equipment USES CANE FOR AMBULATION AND BLINDNESS NO MEDICAL EQUIPMENT PROVIDER PREFERENCE * List name and contact numbers for known caregivers / representatives who currently or will assist patient after discharge: SIM MELARA, DTR, MICHAEL ORTA, SISTER, * Verbal permission to speak to the caregivers and representatives has been obtained from the patient. Yes * Community resources currently utilized Other * Please name any agencies selected above. OUTPATIENT DIALYSIS, [facility], MWF, 1130AM, [employer] [facility] * Additional services required to return to the preadmission environment? Yes * Can the patient safely return to the preadmission environment? Yes * Has this patient been hospitalized within the prior 30 days at any hospital? No Coverage Notice Reviewer: [id number] Sarahi Newman Notice Issued Date-Time: 10/08/2018 16:15 Notice Type: IM Discharge Notice Notice Delivered To: Family Member Relationship to Patient: Daughter Perforator Operator Oil Well Name: SIM MELARA Delivery Method: HAND - Hand Delivered Kaia Days: Prior Verbal Notification: Recipient Understood Notice: Yes Recipient Signature: Yes Med Rec Note Co-signed by Attending: Coverage Notice Comment: Reviewer: [id number] - Dmitri Newman Notice Issued Date-Time: 10/11/2018 15:00 Notice Type: Patient Choice Letter Notice Delivered To: Patient Relationship to Patient: Perforator Operator Oil Well Name: Delivery Method: HAND - Hand Delivered Kaia Days: Prior Verbal Notification: Recipient Understood Notice: Yes Recipient Signature: Med Rec Note Co-signed by Attending: Coverage Notice Comment: THE ARLENE, VERBAL CONSENT; PT DID NOT WANT TO COME OUT FROM UNDER THE WARM BLANKET. Last DP export: 10/14/18 6:13 p Patient Name: PRADEEP DUBON Page 95241 at 0946 All edits/amendments must be made on the electronic document DICTATION DATE: 10/15/18945 EXCHANGE ADMINISTRATOR: LISA 10/15/1846 RPT#: [id number] DC DATE:10/14/18 STATUS: DIS IN [facility] [address] [place] [address] END OF REPORT
--- NOTE | ~2018-09-28 | MORECARE ---
CASE MANAGEMENT DISCHARGE SUMMARY PATIENT: PRADEEP DUBON UNIT: [id number] ADM DATE: 09/28/18 AGE: 53 : 61 SEX: F ROOM/BED: D.8673 AUTHOR: HORTENSIA,DOC PHYSICIAN: REFERRING PHYSICIAN: SANDEE SANCHEZ MD DATE OF SERVICE: 10/11/18 Discharge Plan Patient Name: PRADEEP DUBON Facility: [facility]:[place] : 1965 Planned Disposition: Acute Care Hospital Anticipated Discharge Date: 10/11/18 Discharge Date: Expected LOS: 13 Initial Reviewer: [id number] Initial Review Date: 10/08/2018 Generated: 10/11/18 6:01 pm Comments DCP- Discharge Planning Updated by [id number]: Dmitri Raines on 10/11/18 3:[address] Patient Name: PRADEEP DUBON Encounter No: [id number] : 1965 Primary Insurance: MEDICARE A & B Anticipated DC Date: 10-11-2018 Planned Disposition: Acute Care Hospital External Planned Provider: [facility] DCP follow-up note: CM RECEIVED CALL FROM [facility] IN [place]; PT NOT MEETING MEDICARE GUIDELINES FOR [facility] ADMISSION. PT HAS ALSO BEEN DECLINED BY [facility] ([facility]) AND [facility] ([facility]) IN [place] FOR SAME REASONS. CM SPOKE TO PT IN ROOM, INFORMED HER THAT [facility] [place] IN [place] DECLINED AND THAT WE ARE WAITING ON [facility] [place] IN [place] DETERMINATION. CM DISCUSSED GROUP HOME FACILITY REHAB PLACEMENT. PT REPORTS SHE CANNOT GO TO ANY RETIREMENT IN THE [facility] SHE WAS IN A [place] RETIREMENT AND THEY FOUND DRUG PARAPHENALIA IN HER SUITCASE. CM ASKED IF CM COULD AT LEAST TRY THE [facility] IN [place], PT STATED YES. PT'S DAUGHTER WAS NOT IN ROOM, PT STATES SHE WENT TO WORK AND MAY BE BACK LATER THIS EVENING OR IN THE MORNING FOR CM TO INFORM OF ABOVE. CM NOTIFIED [facility] OF REFERRAL, . CM FAXED REHAB REFERRAL TO [facility] AT [phone]. CM WAITING ADMISSION DETERMINATION FROM THE [facility] (PT STATES SHE HAS BEEN BANNED FROM ALL GROUP HOME FACILITIES IN [facility]). CM ALSO WAITING ON ADMISSION DETERMINATION FROM [facility] REGARDING LATERAL TRANSFER REQUEST. DMITRI RAINES, CASE MANAGEMENT DCP- Discharge Planning Updated by [id number]: Dmitri Raines on 10/10/18 4:[address] Patient Name: PRADEEP DUBON Encounter No: [id number] : 1965 Primary Insurance: MEDICARE A & B Anticipated DC Date: 10-10-2018 Planned Disposition: Alf Acute Care Facility External Planned Provider: [facility] DCP follow-up note: CM RECEIVED ORDER FOR LTACH EVALUATION, SPOKE TO PT IN ROOM, DISCUSSED LTACH LOCATIONS AND PROVIDERS. PT WOULD LIKE TO STAY IN [place] FAMILY AND PT LIVE HERE. PT WOULD LIKE REFERRAL TO [facility]. CM CALLED ANABELA AT [facility], , PROVIDED REFERRAL INFORMATION. CM FAXED REFERRAL TO [facility] AT [phone]. CM WAITING ADMISSION DETERMINATION FROM [facility]. Dmitri Raines, CASE MANAGEMENT Appended by Dmitri Raines on 10/10/2018 16:01 LAMINATOR PREFORMS: CM RECEIVED MESSAGE FROM ANABELA OF [facility], THEY ARE NOT ABLE TO MEET PT'S NEEDS. CM MET WITH PT AND DAUGHTER,SIM. CM ADVISED OF ORDER FOR LTACH AND DECLINATION BY [facility]. SIM REPORTS BEING UNHAPPY WITH PT'S CARE IN THE HOSPITAL AND IS GOING TO CALL THE DOCTOR NOW AND REQUEST A TRANSFER TO [facility]. SIM NOR PT HAVE SPOKEN TO A DIGESTER COOK REGARDING COMPLAINTS ABOUT NURSING OR AIDE CARE. CM POINTED OUT THE NUMBER TO MATCH MARKER AND ENCOURAGED BOTH PT AND DAUGHTER TO IMMEDIATELY REPORT ANY CARE NOT MEETING THEIR EXPECTATIONS. PT'S DAUGHTER STATED SHE IS STILL ASKING THE DOCTOR ABOUT A TRANSFER TO [facility]. CM CLARIFIED, [facility] [place] VS [facility]. SIM STATES [facility], PT HAS BEEN THERE BEFORE AND RECEIVED GOOD CARE. CM EXPLAINED THAT INSURANCE MAY NOT PAY FOR TRANSFER AND TRANSPORTATON IF IT IS NOT TO A HIGHER LEVEL OF CARE; PT AND DAUGHTER BOTH REPORT UNDERSTANDING. THEY STILL WANT TRANSFERRED, REPORT CM CAN GO AHEAD AND SEND REFERRALS TO BOTH [facility] AND [facility] FOR POSSIBLE OPTIONS AND SIM WILL CALL THE DOCTOR TO REQUEST TRANSFER. CM CALLED [facility], , PROVIDED REFERRAL TO [place], FAXED REFERRAL TO [facility] AT [phone]. CM RECEIVED RETURN CALL FROM [facility] WHO INFORMED CM THAT PT ONLY HAS TWO MIDNIGHTS IN ICU DURING THIS STAY AND THAT MEDICARE WILL NOT COVER LTACH CARE SINCE PT WAS NOT IN THE ICU FOR AT LEAST THREE (3) MIDNIGHTS. CM CALLED [facility], , SPOKE TO YARELY, PROVIDED REFERRAL INFORMATION, FAXED REFERRAL TO [facility] AT [phone]. PT HAS BEEN DECLINED BY [facility] [place]. CM WAITING ADMISSION DETERMINATION FROM [facility] IN [place]. CM ALSO WAITING DETERMINATION FROM [facility] REGARDING TRANSFER REQUEST PER PT AND FAMILY. DMITRI RAINES, CASE MANAGEMENT Appended by Dmitri Raines on 10/10/2018 17:48 LAMINATOR PREFORMS: CM RECEIVE CALL FROM EDMOND ABREU OF [facility], ; EDMOND WILL CHECK WITH [employer]ILL[employer] IN THE MORNING FOR BILLING CODES FOR TELEMETRY MONITORING WHICH MAY ASSIST IN QUALIFYING PT FOR LTACH WITHOUT THE THREE MIDNIGHTS IN ICU DURING HOSPITAL STAY. PT HAS BEEN DECLINED BY [facility] IN [place]. CM WAITING ADMISSION DETERMINATION FROM [facility] IN [place]. CM ALSO WAITING DETERMINATION FROM [facility] REGARDING TRANSFER REQUEST PER PT AND FAMILY. DMITRI RAINES, CASE MANAGEMENT DCP- Discharge Planning Updated by [id number]: Herlinda Jacobson on 10/10/18 2:[address] RECEIVED VERBAL REQUEST TO ARRANGE TRANSFER TO [facility] PER THE PATIENT AND FAMILY REQUEST. CM GEORGE HAS EXPLAINED TO FAMILY ABOUT LATERAL TRANSFER AND THE [facility] THAT THE INSURANCE WILL NOT PAY FOR THE TRANSPORTATION THERE IF THERE IS A PHYSICIAN THAT WOULD ACCEPT HER. AT THAT TIME THEY FAMILY ASKED GEORGE TO TRY FOR LTACH IN [place] BUT HAVE SINCE CHANGED THIER MIND. @7813 TRANSFER CENTER WAS CALLED, SPOKE WITH FERNANDEZ. ALL INFORMATION GIVEN WITH TRANSFER DX OF SEPSIS PER FAMILY REQUEST. THE DOC TO DOC (PER TRISTEN MONTERROSO APN) IS TO BE DR LOBO. SHE GAVE ME HIS CELL PHONE NUMBER AND THIS WAS GIVEN TO THE TRANSFER CENTER. I FAXED FACE SHEET TO [phone], AND LEFT THE PHONE NUMBER TO THE FLOOR FOR HER AND THE PATIENTS BEDSIDE NURSES NAME WITH NOTATION THAT SHE WOULD BE HERE UNTIL 1900. WILL WAIT TO SEE IF THERE IS AN ACCEPTING. DCP- Discharge Planning Updated by [id number]: Dmitri Raines on 10/08/18 3:[address] Patient Name: PRADEEP DUBON Admission Status: ER Accout number: [id number] Admission Date: 09-28-2018 : 1965 Admission Diagnosis:FLU DUE TO UNIDENTIFIED INFLUENZA VIRUS W OTH RESP NOE Attending: SANDEE SANCHEZ Current LOS: 10 Anticipated DC Date: 10-10-2018 Planned Disposition: Inpatient Rehab Primary Insurance: MEDICARE A & B PLANNED EXTERNAL PROVIDER: [facility] INPATIENT REHAB Discharge Planning Comments: CM MET WITH PT AND DAUGHTER IN ROOM TO DISCUSS DISCHARGE PLANNING AND NEEDS. PRADEEP DUBON provided verbal consent to discuss current and ongoing needs with/in the presence of: DAUGHTERSIM. PT REPORTS LIVING AT HOME DEPENDENTLY WITH HER FAMILY WHO ASSISTS WITH BATHING AND MEDICATION MANAGEMENT. PT HAS A CANE WITH NO MEDICAL EQUIPMENT PROVIDER PREFERENCE. PT HAS NO OUTSIDE SERVICES ASSISTING IN THE HOME. CM DISCUSSED AVAILABILITY OF HOME HEALTH, REHAB SERVICES AND MEDICAL EQUIPMENT. PT REPORTS SHE WOULD LIKE TO BE CONSIDERED FOR REHAB AT [facility] PRIOR TO GOING HOME, REPORTS HER DAUGHTER WILL PICK HER UP FOR DISCHARGE HOME. IMPORTANT MESSAGE FROM MEDICARE PROVIDED AND EXPLAINED. CM WILL DISCUSS POSSIBILITY OF EVALUATION BY INPATIENT REHAB AT [facility] WITH THE PHYSICIAN. CM TO FOLLOW AND ASSIST NEEDED. Call Manager: Dmitri Raines DCPIA - Discharge Planning Initial Assessment Updated by [id number]: Dmitri Raines on 10/08/18 4:38 pm * Is the patient Alert and Oriented? Yes * How many steps to enter\exit or inside your home? * PCP DR. DAYSI WEEKS * Pharmacy [facility] IN [place] * Preadmission Environment Home with Family * ADLs Partial Dependent * Partial ADLs (Assistance needed) Bathing Medication Management * Equipment Cane * Other Equipment USES CANE FOR AMBULATION AND BLINDNESS NO MEDICAL EQUIPMENT PROVIDER PREFERENCE * List name and contact numbers for known caregivers / representatives who currently or will assist patient after discharge: SIM MELARA DTR, MICHAEL ORTA, SISTER, * Verbal permission to speak to the caregivers and representatives has been obtained from the patient. Yes * Community resources currently utilized Other * Please name any agencies selected above. OUTPATIENT DIALYSIS, [facility], MWF, 1130AM, [employer] [facility] * Additional services required to return to the preadmission environment? Yes * Can the patient safely return to the preadmission environment? Yes * Has this patient been hospitalized within the prior 30 days at any hospital? No Coverage Notice Reviewer: [id number] Sarahi Raines Notice Issued Date-Time: 10/08/2018 16:15 Notice Type: IM Discharge Notice Notice Delivered To: Family Member Relationship to Patient: Daughter Operation Supervisor Name: SIM MELARA Delivery Method: HAND - Hand Delivered Kaia Days: Prior Verbal Notification: Recipient Understood Notice: Yes Recipient Signature: Yes Med Rec Note Co-signed by Attending: Coverage Notice Comment: Last DP export: 10/11/18 3:52 Patient Name: PRADEEP DUBON Page 87144 at 1701 All edits/amendments must be made on the electronic document DICTATION DATE: 10/11/181700 PROCESSING SPECIALIST: LISA 10/11/181700 RPT#: [id number] DC DATE: STATUS: ADM IN [facility] [address] [place] [address] END OF REPORT
--- NOTE | ~2018-09-28 | MORECARE ---
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 TRACIE VAZQUEZ HAS EXPLAINED TO FAMILY ABOUT LATERAL TRANSFER AND THE LIKELY OQUENDO THAT THE INSURANCE WILL NOT PAY FOR THE TRANSPORTATION THERE IF THERE IS A PHYSICIAN THAT WOULD ACCEPT HER. AT THAT TIME THEY FAMILY ASKED GEORGE TO TRY FOR LTACH IN [place] BUT HAVE SINCE CHANGED THIER MIND. @9065 TRANSFER CENTER WAS CALLED, SPOKE WITH FERNANDEZ. ALL INFORMATION GIVEN WITH TRANSFER DX OF SEPSIS PER FAMILY REQUEST. THE DOC TO DOC (PER TRISTEN MONTERROSO APN) IS TO BE DR LOBO. SHE GAVE ME HIS CELL PHONE NUMBER AND THIS WAS GIVEN TO THE TRANSFER CENTER. I FAXED FACE SHEET TO [phone], AND LEFT THE PHONE NUMBER TO THE FLOOR FOR HER AND THE PATIENTS BEDSIDE NURSES NAME WITH NOTATION THAT SHE WOULD BE HERE UNTIL 1900. WILL WAIT TO SEE IF THERE IS AN ACCEPTING. 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 PT WOULD LIKE TO STAY IN [place] FAMILY AND PT LIVE HERE. PT WOULD LIKE REFERRAL TO [facility]. CM CALLED ANABELA AT [facility], , PROVIDED REFERRAL INFORMATION. CM FAXED REFERRAL TO BENJ[facility]ARC[facility] AT [phone]. CM WAITING ADMISSION DETERMINATION FROM [facility]. Kin Newman, CASE MANAGEMENT DCP- Discharge Planning Updated by [id number]: Kin Newman on 10/08/18 3:[address] Patient Name: PRADEEP DUBON Admission Status: ER Accout number: [id number] Admission Date: 09-28-2018 : 1965 Admission Diagnosis:FLU DUE TO UNIDENTIFIED INFLUENZA VIRUS W OTH RESP NOE Attending: SANDEE SANCHEZ Current LOS: 10 Anticipated DC Date: 10-10-2018 Planned Disposition: Inpatient Rehab Primary Insurance: MEDICARE A & B PLANNED EXTERNAL PROVIDER: [facility] INPATIENT REHAB Discharge Planning Comments: CM MET WITH PT AND DAUGHTER IN ROOM TO DISCUSS DISCHARGE PLANNING AND NEEDS. PRADEEP DUBON provided verbal consent to discuss current and ongoing needs with/in the presence of: DAUGHTERSIM. PT REPORTS LIVING AT HOME DEPENDENTLY WITH HER FAMILY WHO ASSISTS WITH BATHING AND MEDICATION MANAGEMENT. PT HAS A CANE WITH NO MEDICAL EQUIPMENT PROVIDER PREFERENCE. PT HAS NO OUTSIDE SERVICES ASSISTING IN THE HOME. CM DISCUSSED AVAILABILITY OF HOME HEALTH, REHAB SERVICES AND MEDICAL EQUIPMENT. PT REPORTS SHE WOULD LIKE TO BE CONSIDERED FOR REHAB AT [facility] PRIOR TO GOING HOME, REPORTS HER DAUGHTER WILL PICK HER UP FOR DISCHARGE HOME. IMPORTANT MESSAGE FROM MEDICARE PROVIDED AND EXPLAINED. CM WILL DISCUSS POSSIBILITY OF EVALUATION BY INPATIENT REHAB AT [facility] WITH THE PHYSICIAN. CM TO FOLLOW AND ASSIST NEEDED. Cider Maker: Kin Newman DCPIA - Discharge Planning Initial Assessment Updated by [id number]: Kin Newman on 10/08/18 4:38 pm * Is the patient Alert and Oriented? Yes * How many steps to enter\exit or inside your home? * PCP DR. DAYSI WEEKS * Pharmacy [facility] IN [place] * Preadmission Environment Home with Family * ADLs Partial Dependent * Partial ADLs (Assistance needed) Bathing Medication Management * Equipment Cane * Other Equipment USES CANE FOR AMBULATION AND BLINDNESS NO MEDICAL EQUIPMENT PROVIDER PREFERENCE * List name and contact numbers for known caregivers / representatives who currently or will assist patient after discharge: SIM MELARA, DTR, MICHAEL ORTA, SISTER, * Verbal permission to speak to the caregivers and representatives has been obtained from the patient. Yes * Community resources currently utilized Other * Please name any agencies selected above. OUTPATIENT DIALYSIS, [facility], MWF, 1130AM, [employer] TRAN[facility] * Additional services required to return to the preadmission environment? Yes * Can the patient safely return to the preadmission environment? Yes * Has this patient been hospitalized within the prior 30 days at any hospital? No External Providers External Provider: [facility] Next Contact Date: 10/10/2018 Service Request Date: Service Type: Resolution: Reviewer: Comments: Coverage Notice Reviewer: [id number] Sarahi Newman Notice Issued Date-Time: 10/08/2018 16:15 Notice Type: IM Discharge Notice Notice Delivered To: Family Member Relationship to Patient: Daughter Mannequin Refinisher Name: SIM MELARA Delivery Method: HAND - Hand Delivered Kaia Days: Prior Verbal Notification: Recipient Understood Notice: Yes Recipient Signature: Yes Med Rec Note Co-signed by Attending: Coverage Notice Comment: Last DP export: 10/10/18 2:33 Patient Name: PRADEEP DUBON Page 44133 at 1548 All edits/amendments must be made on the electronic document DICTATION DATE: 10/10/181546 GAME PROGRAMER: LISA 10/10/181546 RPT#: [id number] [place] DATE: STATUS: ADM IN [facility] [address] [place] [address] END OF REPORT
--- NOTE | ~2018-09-28 | MORECARE ---
CASE MANAGEMENT DISCHARGE SUMMARY PATIENT: PRADEEP DUBON UNIT: [id number] ADM DATE: 09/28/18 AGE: 53 : 61 SEX: F ROOM/BED: D.7504 AUTHOR: VICTOR MANUEL BAZAN PHYSICIAN: REFERRING PHYSICIAN: SANDEE SANCHEZ MD DATE OF SERVICE: 10/14/18 Discharge Plan Patient Name: PRADEEP DUBON Facility: [facility]:[place] : 1965 Planned Disposition: Acute Care Hospital Anticipated Discharge Date: 10/12/18 Discharge Date: Expected LOS: 14 Initial Reviewer: [id number] Initial Review Date: 10/08/2018 Generated: 10/14/18 8:13 pm Comments DCP- Discharge Planning Updated by [id number]: Kimberly Horvath on 10/14/18 6:[address] 1730 PATIENT FOR TRANSFERE TO [facility] THIS PM VIA AMBULANCE. COBRA SIGNED BY DR GRIFFIN. TO BE COMPLETED. PRIMARY NURSE TO COMPLETE NURSING TRANSFER FORM. PCS SIGNED BY AND FACE SHEET ATTACHED. LIFENET AWARE OF TRANSFER. CHART COPIED. NURSE CALLED REPORT AND [facility] RECEIVING NURSE DELAYED TRANSFER SAYING THE BED IS NOT READY. AWAITING CALL BACK. DCP- Discharge Planning Updated by [id number]: Dmitri Raines on 10/12/18 1:[address] Patient Name: PRADEEP DUBON Encounter No: [id number] : 1965 Primary Insurance: MEDICARE A & B Anticipated DC Date: 10-11-2018 Planned Disposition: Acute Care Hospital External Planned Provider: [facility] DCP follow-up note: CM SPOKE TO RN TRACIE TSAI WHO ADVISED PT HAS BEEN ACCEPTED TO [facility] BY DR. REAL. TRANSFER CENTER WILL CALL [facility] AFTER 1600 HOURS INSTRUCTED BY [facility] TO CHECK BED AVAILABILITY. TRANSFER CENTER WILL NOTIFY MED 2 NURSE WHEN BED BECOMES AVAILABLE. CM NOTIFIED PT IN ROOM, PT IN AGREEMENT WITH TRANSFER TO [facility], ASKED CM TO CALL DAUGHTERSIM. CM CALLED SIM MELARA, DAUGHTER, , WHO IS ALSO IN AGREEMENT WITH TRANSFER TO [facility]. TRANSFER CENTER WILL NOTIFY MED 2 NURSE WHEN BED BECOMES AVAILABLE AT [facility]. Dmitri Raines, CASE MANAGEMENT DCP- Discharge Planning Updated by [id number]: Dmitri Raines on 10/11/18 3:[address] Patient Name: PRADEEP DUBON Encounter No: [id number] : 1965 Primary Insurance: MEDICARE A & B Anticipated DC Date: 10-11-2018 Planned Disposition: Acute Care Hospital External Planned Provider: [facility] DCP follow-up note: CM RECEIVED CALL FROM [facility] IN [place]; PT NOT MEETING MEDICARE GUIDELINES FOR LTACH ADMISSION. PT HAS ALSO BEEN DECLINED BY [facility] ([facility] AND [facility] ([facility]) IN [place] FOR SAME REASONS. CM SPOKE TO PT IN ROOM, INFORMED HER THAT [facility] IN [place] DECLINED AND THAT WE ARE WAITING ON [facility] DETERMINATION. CM DISCUSSED [facility] FACILITY REHAB PLACEMENT. 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 CM ASKED IF CM COULD AT LEAST TRY THE [facility] IN [place], PT STATED YES. PT'S DAUGHTER WAS NOT IN ROOM, PT STATES SHE WENT TO WORK AND MAY BE BACK LATER THIS EVENING OR IN THE MORNING FOR CM TO INFORM OF ABOVE. CM NOTIFIED [facility] OF REFERRAL, . CM FAXED REHAB REFERRAL TO [facility] AT [phone]. CM WAITING ADMISSION DETERMINATION FROM [facility] (PT STATES SHE HAS BEEN BANNED FROM ALL [facility] FACILITIES IN [facility]). CM ALSO WAITING ON ADMISSION DETERMINATION FROM [facility] REGARDING LATERAL TRANSFER REQUEST. DMITRI RAINES, CASE MANAGEMENT DCP- Discharge Planning Updated by [id number]: Dmitri Raines on 10/10/18 4:[address] Patient Name: PRADEEP DUBON Encounter No: [id number] : 1965 Primary Insurance: MEDICARE A & B Anticipated DC Date: 10-10-2018 Planned Disposition: [facility] External Planned Provider: [facility] DCP follow-up note: CM RECEIVED ORDER FOR LTACH EVALUATION, SPOKE TO PT IN ROOM, DISCUSSED LTACH LOCATIONS AND PROVIDERS. PT WOULD LIKE TO STAY IN [place] FAMILY AND PT LIVE HERE. PT WOULD LIKE REFERRAL TO [facility]. CM CALLED ANABELA AT [facility], , PROVIDED REFERRAL INFORMATION. CM FAXED REFERRAL TO [facility] AT [phone]. CM WAITING ADMISSION DETERMINATION FROM [facility]. Dmitri Raines, CASE MANAGEMENT Appended by Dmitri Raines on 10/10/2018 16:01 BUHR DRESSER: CM RECEIVED MESSAGE FROM ANABELA OF [facility], THEY ARE NOT ABLE TO MEET PT'S NEEDS. CM MET WITH PT AND DAUGHTER,SIM. CM ADVISED OF ORDER FOR LTACH AND DECLINATION BY [facility]. SIM REPORTS BEING UNHAPPY WITH PT'S CARE IN THE HOSPITAL AND IS GOING TO CALL THE DOCTOR NOW AND REQUEST A TRANSFER TO [facility] IN [place]. SIM NOR PT HAVE SPOKEN TO A CONCRETE PAVER REGARDING COMPLAINTS ABOUT NURSING OR AIDE CARE. CM POINTED OUT THE NUMBER TO RECRUITMENT ADVERTISING MANAGER AND ENCOURAGED BOTH PT AND DAUGHTER TO IMMEDIATELY REPORT ANY CARE NOT MEETING THEIR EXPECTATIONS. PT'S DAUGHTER STATED SHE IS STILL ASKING THE DOCTOR ABOUT A TRANSFER TO [facility]. CM CLARIFIED, [facility] VS [facility]. SIM STATES [facility], PT HAS BEEN THERE BEFORE AND RECEIVED GOOD CARE. CM EXPLAINED THAT INSURANCE MAY NOT PAY FOR TRANSFER AND TRANSPORTATON IF IT IS NOT TO A HIGHER LEVEL OF CARE; PT AND DAUGHTER BOTH REPORT UNDERSTANDING. THEY STILL WANT TRANSFERRED, REPORT CM CAN GO AHEAD AND SEND REFERRALS TO BOTH [facility] AND [facility] IN [place] FOR POSSIBLE OPTIONS AND SIM WILL CALL THE DOCTOR TO REQUEST TRANSFER. CM CALLED [facility], , PROVIDED REFERRAL TO [facility], FAXED REFERRAL TO [facility] AT [phone]. CM RECEIVED RETURN CALL FROM DELLA WHO INFORMED CM THAT PT ONLY HAS TWO MIDNIGHTS IN ICU DURING THIS STAY AND THAT MEDICARE WILL NOT COVER LTACH CARE SINCE PT WAS NOT IN THE ICU FOR AT LEAST THREE (3) MIDNIGHTS. CM CALLED [facility] LTACH, , SPOKE TO YARELY, PROVIDED REFERRAL INFORMATION, FAXED REFERRAL TO [facility] AT [phone]. PT HAS BEEN DECLINED BY [facility], [facility] IN [place]. CM WAITING ADMISSION DETERMINATION FROM [facility] IN [place]. CM ALSO WAITING DETERMINATION FROM [facility] REGARDING TRANSFER REQUEST PER PT AND FAMILY. DMITRI RAINES, CASE MANAGEMENT Appended by Dmitri Raines on 10/10/2018 17:48 BUHR DRESSER: CM RECEIVE CALL FROM EDMOND [facility]REU OF [facility], ; EDMOND WILL CHECK WITH [employer] IN THE MORNING FOR BILLING CODES FOR TELEMETRY MONITORING WHICH MAY ASSIST IN QUALIFYING PT FOR LTACH WITHOUT THE THREE MIDNIGHTS IN ICU DURING HOSPITAL STAY. PT HAS BEEN DECLINED BY [facility] [place], [facility] IN [place]. CM WAITING ADMISSION DETERMINATION FROM [facility] IN [place]. CM ALSO WAITING DETERMINATION FROM [facility] REGARDING TRANSFER REQUEST PER PT AND FAMILY. DMITRI RAINES, CASE MANAGEMENT DCP- Discharge Planning Updated by [id number]: Herlinda Tsai on 10/10/18 2:[address] RECEIVED VERBAL REQUEST TO ARRANGE TRANSFER TO [facility] IN [place] PER THE PATIENT AND FAMILY REQUEST. CM GEORGE HAS EXPLAINED TO FAMILY ABOUT LATERAL TRANSFER AND THE LIKELY OQUENDO THAT THE INSURANCE WILL NOT PAY FOR THE TRANSPORTATION THERE IF THERE IS A PHYSICIAN THAT WOULD ACCEPT HER. AT THAT TIME THEY FAMILY ASKED GEORGE TO TRY FOR LTACH IN [place] BUT HAVE SINCE CHANGED THIER MIND. @7639 TRANSFER CENTER WAS CALLED, SPOKE WITH FERNANDEZ. ALL INFORMATION GIVEN WITH TRANSFER DX OF SEPSIS PER FAMILY REQUEST. THE DOC TO DOC (PER TRISTEN MONTERROSO APN) IS TO BE DR LOBO. SHE GAVE ME HIS CELL PHONE NUMBER AND THIS WAS GIVEN TO THE TRANSFER CENTER. I FAXED FACE SHEET TO [phone], AND LEFT THE PHONE NUMBER TO THE FLOOR FOR HER AND THE PATIENTS BEDSIDE NURSES NAME WITH NOTATION THAT SHE WOULD BE HERE UNTIL 1900. WILL WAIT TO SEE IF THERE IS AN ACCEPTING. DCP- Discharge Planning Updated by [id number]: Dmitri Raines on 10/08/18 3:[address] Patient Name: PRADEEP DUBON Admission Status: ER Accout number: [id number] Admission Date: 09-28-2018 : 1965 Admission Diagnosis:FLU DUE TO UNIDENTIFIED INFLUENZA VIRUS W OTH RESP NOE Attending: SANDEE SANCHEZ Current LOS: 10 Anticipated DC Date: 10-10-2018 Planned Disposition: Inpatient Rehab Primary Insurance: MEDICARE A & B PLANNED EXTERNAL PROVIDER: [facility] INPATIENT REHAB Discharge Planning Comments: CM MET WITH PT AND DAUGHTER IN ROOM TO DISCUSS DISCHARGE PLANNING AND NEEDS. PRADEEP DUBON provided verbal consent to discuss current and ongoing needs with/in the presence of: DAUGHTERSIM. PT REPORTS LIVING AT HOME DEPENDENTLY WITH HER FAMILY WHO ASSISTS WITH BATHING AND MEDICATION MANAGEMENT. PT HAS A CANE WITH NO MEDICAL EQUIPMENT PROVIDER PREFERENCE. PT HAS NO OUTSIDE SERVICES ASSISTING IN THE HOME. CM DISCUSSED AVAILABILITY OF HOME HEALTH, REHAB SERVICES AND MEDICAL EQUIPMENT. PT REPORTS SHE WOULD LIKE TO BE CONSIDERED FOR REHAB AT [facility] PRIOR TO GOING HOME, REPORTS HER DAUGHTER WILL PICK HER UP FOR DISCHARGE HOME. IMPORTANT MESSAGE FROM MEDICARE PROVIDED AND EXPLAINED. CM WILL DISCUSS POSSIBILITY OF EVALUATION BY INPATIENT REHAB AT [facility] WITH THE PHYSICIAN. CM TO FOLLOW AND ASSIST NEEDED. Herb Doctor: Dmitri Raines DCPIA - Discharge Planning Initial Assessment Updated by [id number]: Dmitri Raines on 10/08/18 4:38 pm * Is the patient Alert and Oriented? Yes * How many steps to enter\exit or inside your home? * PCP DR. DAYSI WEEKS * Pharmacy [facility] IN [place] * Preadmission Environment Home with Family * ADLs Partial Dependent * Partial ADLs (Assistance needed) Bathing Medication Management * Equipment Cane * Other Equipment USES CANE FOR AMBULATION AND BLINDNESS NO MEDICAL EQUIPMENT PROVIDER PREFERENCE * List name and contact numbers for known caregivers / representatives who currently or will assist patient after discharge: SIM MELARA, DTR, MICHAEL ORTA, SISTER, * Verbal permission to speak to the caregivers and representatives has been obtained from the patient. Yes * Community resources currently utilized Other * Please name any agencies selected above. [facility]IENT DIALYSIS, [facility], MWF, 1130AM, [facility] TRANSP[facility] * Additional services required to return to the preadmission environment? Yes * Can the patient safely return to the preadmission environment? Yes * Has this patient been hospitalized within the prior 30 days at any hospital? No Coverage Notice Reviewer: [id number] Sarahi Raines Notice Issued Date-Time: 10/08/2018 16:15 Notice Type: IM Discharge Notice Notice Delivered To: Family Member Relationship to Patient: Daughter Glue Cook Name: SIM MELARA Delivery Method: HAND - Hand Delivered Kaia Days: Prior Verbal Notification: Recipient Understood Notice: Yes Recipient Signature: Yes Med Rec Note Co-signed by Attending: Coverage Notice Comment: Reviewer: [id number] - Dmitri Raines Notice Issued Date-Time: 10/11/2018 15:00 Notice Type: Patient Choice Letter Notice Delivered To: Patient Relationship to Patient: Glue Cook Name: Delivery Method: HAND - Hand Delivered Kaia Days: Prior Verbal Notification: Recipient Understood Notice: Yes Recipient Signature: Med Rec Note Co-signed by Attending: Coverage Notice Comment: THE [place], VERBAL CONSENT; PT DID NOT WANT TO COME OUT FROM UNDER THE WARM BLANKET. Last DP export: 10/12/18 3:24 Patient Name: PRADEEP DUBON Page 33292 at 1913 All edits/amendments must be made on the electronic document DICTATION DATE: 10/14/181911 PUBLICATION MANAGER: LISA 10/14/181911 RPT#: [id number] DC DATE: STATUS: ADM IN [facility] [address] [place] [address] END OF REPORT
--- NOTE | ~2018-09-28 | MORECARE ---
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 Facility Anticipated Discharge Date: 10/10/18 Discharge Date: Expected LOS: 12 Initial Reviewer: [id number] Initial Review Date: 10/08/2018 Generated: 10/10/18 11:13 am Comments DCP- Discharge Planning Updated by [id number]: Kin Newman on 10/08/18 3:[address] Patient Name: PRADEEP DUBON Admission Status: ER Accout number: [id number] Admission Date: 09-28-2018 : 1965 Admission Diagnosis:FLU DUE TO UNIDENTIFIED INFLUENZA VIRUS W OTH RESP NOE Attending: SANDEE SANCHEZ Current LOS: 10 Anticipated DC Date: 10-10-2018 Planned Disposition: Inpatient Rehab Primary Insurance: MEDICARE A & B PLANNED EXTERNAL PROVIDER: [facility] INPATIENT REHAB Discharge Planning Comments: CM MET WITH PT AND DAUGHTER IN ROOM TO DISCUSS DISCHARGE PLANNING AND NEEDS. PRADEEP DUBON provided verbal consent to discuss current and ongoing needs with/in the presence of: DAUGHTERSIM. PT REPORTS LIVING AT HOME DEPENDENTLY WITH HER FAMILY WHO ASSISTS WITH BATHING AND MEDICATION MANAGEMENT. PT HAS A CANE WITH NO MEDICAL EQUIPMENT PROVIDER PREFERENCE. PT HAS NO OUTSIDE SERVICES ASSISTING IN THE HOME. CM DISCUSSED AVAILABILITY OF HOME HEALTH, REHAB SERVICES AND MEDICAL EQUIPMENT. PT REPORTS SHE WOULD LIKE TO BE CONSIDERED FOR REHAB AT [facility] PRIOR TO GOING HOME, REPORTS HER DAUGHTER WILL PICK HER UP FOR DISCHARGE HOME. IMPORTANT MESSAGE FROM MEDICARE PROVIDED AND EXPLAINED. CM WILL DISCUSS POSSIBILITY OF EVALUATION BY INPATIENT REHAB AT [facility] WITH THE PHYSICIAN. CM TO FOLLOW AND ASSIST NEEDED. Director Of Math: Kin Newman DCPIA - Discharge Planning Initial Assessment Updated by [id number]: Kin Newman on 10/08/18 4:38 pm * Is the patient Alert and Oriented? Yes * How many steps to enter\exit or inside your home? * PCP DR. DAYSI WEEKS * Pharmacy [facility] IN [place] * Preadmission Environment Home with Family * ADLs Partial Dependent * Partial ADLs (Assistance needed) Bathing Medication Management * Equipment Cane * Other Equipment USES CANE FOR AMBULATION AND BLINDNESS NO MEDICAL EQUIPMENT PROVIDER PREFERENCE * List name and contact numbers for known caregivers / representatives who currently or will assist patient after discharge: SIM MELARA, DTR, MICHAEL SHERELIZABETHBRIGIDAMae, SISTER, * Verbal permission to speak to the caregivers and representatives has been obtained from the patient. Yes * Community resources currently utilized Other * Please name any agencies selected above. OUTPATIENT DIALYSIS, [facility], MWF, 1130AM, [employer] [facility]SP[employer] [facility] * Additional services required to return to the preadmission environment? Yes * Can the patient safely return to the preadmission environment? Yes * Has this patient been hospitalized within the prior 30 days at any hospital? No Coverage Notice Reviewer: [id number] Sarahi Newman Notice Issued Date-Time: 10/08/2018 16:15 Notice Type: IM Discharge Notice Notice Delivered To: Family Member Relationship to Patient: Daughter Foreign Exchange Dealer Name: SIM MELARA Delivery Method: HAND - Hand Delivered Kaia Days: Prior Verbal Notification: Recipient Understood Notice: Yes Recipient Signature: Yes Med Rec Note Co-signed by Attending: Coverage Notice Comment: Last DP export: 10/10/18 8:31 Patient Name: PRADEEP DUBON Page 52292 at 1013 All edits/amendments must be made on the electronic document DICTATION DATE: 10/10/18 1012 FELTMAKER AND WEIGHER: LISA 10/10/18 1012 RPT#: [id number] DC DATE: STATUS: ADM IN [facility] [address] [place] [address] END OF REPORT
--- NOTE | ~2018-09-28 | MORECARE ---
CASE MANAGEMENT DISCHARGE SUMMARY PATIENT: PRADEEP DUBON UNIT: [id number] ADM DATE: 09/28/18 AGE: 53 : 61 SEX: F ROOM/BED: D.8913 AUTHOR: VICTOR MANUEL BAZAN PHYSICIAN: REFERRING PHYSICIAN: SANDEE SANCHEZ MD DATE OF SERVICE: 10/12/18 Discharge Plan Patient Name: PRADEEP DUBON Facility: [facility]:[place] : 1965 Planned Disposition: Acute Care Hospital Anticipated Discharge Date: 10/12/18 Discharge Date: Expected LOS: 14 Initial Reviewer: [id number] Initial Review Date: 10/08/2018 Generated: 10/12/18 4:50 pm Comments DCP- Discharge Planning Updated by [email or web address]: Dmitri Raines on 10/12/18 1:[address] Patient Name: PRADEEP DUBON Encounter No: [id number] : 1965 Primary Insurance: MEDICARE A & B Anticipated DC Date: 10-11-2018 Planned Disposition: Acute Care Hospital External Planned Provider: [facility] DCP follow-up note: CM SPOKE TO RN TRACIE TSAI WHO ADVISED PT HAS BEEN ACCEPTED TO [facility] BY DR. REAL. TRANSFER CENTER WILL CALL [facility] AFTER 1600 HOURS INSTRUCTED BY [facility] TO CHECK BED AVAILABILITY. TRANSFER CENTER WILL NOTIFY MED 2 NURSE WHEN BED BECOMES AVAILABLE. CM NOTIFIED PT IN ROOM, PT IN AGREEMENT WITH TRANSFER TO [facility], ASKED CM TO CALL SIM PADILLA. CM CALLED SIM MELARA, DAUGHTER, , WHO IS ALSO IN AGREEMENT WITH TRANSFER TO [facility]. TRANSFER CENTER WILL NOTIFY MED 2 NURSE WHEN BED BECOMES AVAILABLE AT [facility]. Dmitri Raines, CASE MANAGEMENT DCP- Discharge Planning Updated by [id number]: Dmitri Raines on 10/11/18 3:[address] Patient Name: PRADEEP DUBON Encounter No: [id number] : 1965 Primary Insurance: MEDICARE A & B Anticipated DC Date: 10-11-2018 Planned Disposition: Acute Care Hospital External Planned Provider: [facility] DCP follow-up note: CM RECEIVED CALL FROM [facility] IN [place]; PT NOT MEETING MEDICARE GUIDELINES FOR LTACH ADMISSION. PT HAS ALSO BEEN DECLINED BY [facility] AND [facility] ([facility] IN [place] FOR SAME REASONS. CM SPOKE TO PT IN ROOM, INFORMED HER THAT [facility] IN [place] DECLINED AND THAT WE ARE WAITING ON [facility] T[facility]BALL DETERMINATION. CM DISCUSSED RESIDENTIAL FACILITY REHAB PLACEMENT. 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 CM ASKED IF CM COULD AT LEAST TRY THE [facility] IN [place], PT STATED YES. PT'S DAUGHTER WAS NOT IN ROOM, PT STATES SHE WENT TO WORK AND MAY BE BACK LATER THIS EVENING OR IN THE MORNING FOR CM TO INFORM OF ABOVE. CM NOTIFIED JD OF [facility] OF REFERRAL, . CM FAXED REHAB REFERRAL TO [facility] AT [phone]. CM WAITING ADMISSION DETERMINATION FROM [facility] (PT STATES SHE HAS BEEN BANNED FROM ALL RESIDENTIAL FACILITIES IN [facility]). CM ALSO WAITING ON ADMISSION DETERMINATION FROM [facility] REGARDING LATERAL TRANSFER REQUEST. DMITRI RAINES, CASE MANAGEMENT DCP- Discharge Planning Updated by [id number]: Dmitri Raines on 10/10/18 4:[address] Patient Name: PRADEEP DUBON Encounter No: [id number] : 1965 Primary Insurance: MEDICARE A & B Anticipated DC Date: 10-10-2018 Planned Disposition: Skilled Nursing Acute Care Facility External Planned Provider: [facility] [place] DCP follow-up note: CM RECEIVED ORDER FOR LTACH EVALUATION, SPOKE TO PT IN ROOM, DISCUSSED LTACH LOCATIONS AND PROVIDERS. PT WOULD LIKE TO STAY IN [place] FAMILY AND PT LIVE HERE. PT WOULD LIKE REFERRAL TO [facility]. CM CALLED ANABELA AT [facility], , PROVIDED REFERRAL INFORMATION. CM FAXED REFERRAL TO [facility] AT [phone]. CM WAITING ADMISSION DETERMINATION FROM [facility]. Dmitri Raines, CASE MANAGEMENT Appended by Dmitri Raines on 10/10/2018 16:01 DIRECTOR OF INSTRUMENTAL MUSIC: CM RECEIVED MESSAGE FROM ANABELA OF [facility], THEY ARE NOT ABLE TO MEET PT'S NEEDS. CM MET WITH PT AND DAUGHTER,SIM. CM ADVISED OF ORDER FOR LTACH AND DECLINATION BY BENJY GARCIA. SIM REPORTS BEING UNHAPPY WITH PT'S CARE IN THE HOSPITAL AND IS GOING TO CALL THE DOCTOR NOW AND REQUEST A TRANSFER TO [facility] IN [place]. SIM NOR PT HAVE SPOKEN TO A BLOGS MANAGER REGARDING COMPLAINTS ABOUT NURSING OR AIDE CARE. CM POINTED OUT THE NUMBER TO REFRIGERATION ENGINEERING TEACHER AND ENCOURAGED BOTH PT AND DAUGHTER TO IMMEDIATELY REPORT ANY CARE NOT MEETING THEIR EXPECTATIONS. PT'S DAUGHTER STATED SHE IS STILL ASKING THE DOCTOR ABOUT A TRANSFER TO [facility]. CM CLARIFIED, [facility] VS [facility]. SIM STATES [facility], PT HAS BEEN THERE BEFORE AND RECEIVED GOOD CARE. CM EXPLAINED THAT INSURANCE MAY NOT PAY FOR TRANSFER AND TRANSPORTATON IF IT IS NOT TO A HIGHER LEVEL OF CARE; PT AND DAUGHTER BOTH REPORT UNDERSTANDING. THEY STILL WANT TRANSFERRED, REPORT CM CAN GO AHEAD AND SEND REFERRALS TO BOTH [facility] AND [facility] IN [place] FOR POSSIBLE OPTIONS AND SIM WILL CALL THE DOCTOR TO REQUEST TRANSFER. CM CALLED [facility], , PROVIDED REFERRAL TO [facility], FAXED REFERRAL TO [facility] AT [phone]. CM RECEIVED RETURN CALL FROM DELLA WHO INFORMED CM THAT PT ONLY HAS TWO MIDNIGHTS IN ICU DURING THIS STAY AND THAT MEDICARE WILL NOT COVER LTACH CARE SINCE PT WAS NOT IN THE ICU FOR AT LEAST THREE (3) MIDNIGHTS. CM CALLED [facility], , SPOKE TO YARELY, PROVIDED REFERRAL INFORMATION, [facility] [phone]. PT HAS BEEN DECLINED BY [facility]ENJ[facility] GARCIA [place], [facility] IN [place]. CM WAITING ADMISSION DETERMINATION FROM [facility] IN [place]. CM ALSO WAITING DETERMINATION FROM [facility] REGARDING TRANSFER REQUEST PER PT AND FAMILY. DMITRI RAINES, CASE MANAGEMENT Appended by Dmitri Raines on 10/10/2018 17:48 DIRECTOR OF INSTRUMENTAL MUSIC: CM RECEIVE CALL FROM EDMOND ABREU OF [facility], ; EDMOND WILL CHECK WITH [employer] IN THE MORNING FOR BILLING CODES FOR TELEMETRY MONITORING WHICH MAY ASSIST IN QUALIFYING PT FOR LTACH WITHOUT THE THREE MIDNIGHTS IN ICU DURING HOSPITAL STAY. PT HAS BEEN DECLINED BY BENJY GARCIA [facility] IN [place]. CM WAITING ADMISSION DETERMINATION FROM [facility] IN [place]. CM ALSO WAITING DETERMINATION FROM [facility] REGARDING TRANSFER REQUEST PER PT AND FAMILY. DMITRI RAINES, CASE MANAGEMENT DCP- Discharge Planning Updated by [id number]: Herlinda Tsai on 10/10/18 2:[address] RECEIVED VERBAL REQUEST TO ARRANGE TRANSFER TO [facility] PER THE PATIENT AND FAMILY REQUEST. CM GEORGE HAS EXPLAINED TO FAMILY ABOUT LATERAL TRANSFER AND THE LIKELY OQUENDO THAT THE INSURANCE WILL NOT PAY FOR THE TRANSPORTATION THERE IF THERE IS A PHYSICIAN THAT WOULD ACCEPT HER. AT THAT TIME THEY FAMILY ASKED GEORGE TO TRY FOR LTACH IN [place] BUT HAVE SINCE CHANGED THIER MIND. @5776 TRANSFER CENTER WAS CALLED, SPOKE WITH FERNANDEZ. ALL INFORMATION GIVEN WITH TRANSFER DX OF SEPSIS PER FAMILY REQUEST. THE DOC TO DOC (PER TRISTEN MONTERROSO APN) IS TO BE DR LOBO. SHE GAVE ME HIS CELL PHONE NUMBER AND THIS WAS GIVEN TO THE TRANSFER CENTER. I FAXED FACE SHEET TO [phone], AND LEFT THE PHONE NUMBER TO THE FLOOR FOR HER AND THE PATIENTS BEDSIDE NURSES NAME WITH NOTATION THAT SHE WOULD BE HERE UNTIL 1900. WILL WAIT TO SEE IF THERE IS AN ACCEPTING. DCP- Discharge Planning Updated by [email or web address]: Dmitri Raines on 10/08/18 3:[address] Patient Name: PRADEEP DUBON Admission Status: ER Accout number: [id number] Admission Date: 09-28-2018 : 1965 Admission Diagnosis:FLU DUE TO UNIDENTIFIED INFLUENZA VIRUS W OTH RESP NOE Attending: SANDEE SANCHEZ Current LOS: 10 Anticipated DC Date: 10-10-2018 Planned Disposition: Inpatient Rehab Primary Insurance: MEDICARE A & B PLANNED EXTERNAL PROVIDER: [facility] INPATIENT REHAB Discharge Planning Comments: CM MET WITH PT AND DAUGHTER IN ROOM TO DISCUSS DISCHARGE PLANNING AND NEEDS. PRADEEP DUBON provided verbal consent to discuss current and ongoing needs with/in the presence of: DAUGHTERSIM. PT REPORTS LIVING AT HOME DEPENDENTLY WITH HER FAMILY WHO ASSISTS WITH BATHING AND MEDICATION MANAGEMENT. PT HAS A CANE WITH NO MEDICAL EQUIPMENT PROVIDER PREFERENCE. PT HAS NO OUTSIDE SERVICES ASSISTING IN THE HOME. CM DISCUSSED AVAILABILITY OF HOME HEALTH, REHAB SERVICES AND MEDICAL EQUIPMENT. PT REPORTS SHE WOULD LIKE TO BE CONSIDERED FOR REHAB AT [facility] PRIOR TO GOING HOME, REPORTS HER DAUGHTER WILL PICK HER UP FOR DISCHARGE HOME. IMPORTANT MESSAGE FROM MEDICARE PROVIDED AND EXPLAINED. CM WILL DISCUSS POSSIBILITY OF EVALUATION BY INPATIENT REHAB AT [facility] WITH THE PHYSICIAN. CM TO FOLLOW AND ASSIST NEEDED. Masonry Contractor Administrator: Dmitri Raines DCPIA - Discharge Planning Initial Assessment Updated by [id number]: Dmitri Raines on 10/08/18 4:38 pm * Is the patient Alert and Oriented? Yes * How many steps to enter\exit or inside your home? * PCP DR. DAYSI WEEKS * Pharmacy [facility] IN [place] * Preadmission Environment Home with Family * ADLs Partial Dependent * Partial ADLs (Assistance needed) Bathing Medication Management * Equipment Cane * Other Equipment USES CANE FOR AMBULATION AND BLINDNESS NO MEDICAL EQUIPMENT PROVIDER PREFERENCE * List name and contact numbers for known caregivers / representatives who currently or will assist patient after discharge: SIM MELARA, DTR, MICHAEL ORTA, SISTER, * Verbal permission to speak to the caregivers and representatives has been obtained from the patient. Yes * Community resources currently utilized Other * Please name any agencies selected above. OUTPATIENT DIALYSIS, [facility], MWF, 1130AM, [employer] TRANSPORT VAN * Additional services required to return to the preadmission environment? Yes * Can the patient safely return to the preadmission environment? Yes * Has this patient been hospitalized within the prior 30 days at any hospital? No Coverage Notice Reviewer: [id number] Sarahi Raines Notice Issued Date-Time: 10/08/2018 16:15 Notice Type: IM Discharge Notice Notice Delivered To: Family Member Relationship to Patient: Daughter Steel Tester Name: SIM MELARA Delivery Method: HAND - Hand Delivered Kaia Days: Prior Verbal Notification: Recipient Understood Notice: Yes Recipient Signature: Yes Med Rec Note Co-signed by Attending: Coverage Notice Comment: Reviewer: [id number] Sarahi Raines Notice Issued Date-Time: 10/11/2018 15:00 Notice Type: Patient Choice Letter Notice Delivered To: Patient Relationship to Patient: Steel Tester Name: Delivery Method: HAND - Hand Delivered Kaia Days: Prior Verbal Notification: Recipient Understood Notice: Yes Recipient Signature: Med Rec Note Co-signed by Attending: Coverage Notice Comment: [place], VERBAL CONSENT; PT DID NOT WANT TO COME OUT FROM UNDER THE WARM BLANKET. Last DP export: 10/12/18 1:59 Patient Name: PRADEEP DUBON Page [id number] at 1550 All edits/amendments must be made on the electronic document DICTATION DATE: 10/12/181548 TINNER HELPER: LISA 10/12/181548 RPT#: [id number] DC DATE: STATUS: ADM IN [facility] [address] [place] [address] END OF REPORT
--- NOTE | ~2018-09-28 | MORECARE ---
CASE MANAGEMENT DISCHARGE SUMMARY PATIENT: PRADEEP DUBON UNIT: [id number] ADM DATE: 09/28/18 AGE: 53 : 61 SEX: F ROOM/BED: D.1823 AUTHOR: VICTOR MANUEL BAZAN PHYSICIAN: REFERRING PHYSICIAN: SANDEE SANCHEZ MD DATE OF SERVICE: 10/10/18 Discharge Plan Patient Name: PRADEEP DUBON [facility] [facility] 1965 Planned Disposition: Inpatient Rehab Anticipated Discharge Date: 10/10/18 Discharge Date: Expected LOS: 12 Initial Reviewer: [id number] Initial Review Date: 10/08/2018 Generated: 10/10/18 10:31 am Comments DCP- Discharge Planning Updated by [id number]: Kin Newman on 10/08/18 3:[address] Patient Name: PRADEEP DUBON Admission Status: ER Accout number: [id number] Admission Date: 09-28-2018 : 1965 Admission Diagnosis:FLU DUE TO UNIDENTIFIED INFLUENZA VIRUS W OTH RESP NOE Attending: SANDEE SANCHEZ Current LOS: 10 Anticipated DC Date: 10-10-2018 Planned Disposition: Inpatient Rehab Primary Insurance: MEDICARE A & B PLANNED EXTERNAL PROVIDER: [facility] INPATIENT REHAB Discharge Planning Comments: CM MET WITH PT AND DAUGHTER IN ROOM TO DISCUSS DISCHARGE PLANNING AND NEEDS. PRADEEP DUBON provided verbal consent to discuss current and ongoing needs with/in the presence of: DAUGHTERSIM. PT REPORTS LIVING AT HOME DEPENDENTLY WITH HER FAMILY WHO ASSISTS WITH BATHING AND MEDICATION MANAGEMENT. PT HAS A CANE WITH NO MEDICAL EQUIPMENT PROVIDER PREFERENCE. PT HAS NO OUTSIDE SERVICES ASSISTING IN THE HOME. CM DISCUSSED AVAILABILITY OF HOME HEALTH, REHAB SERVICES AND MEDICAL EQUIPMENT. PT REPORTS SHE WOULD LIKE TO BE CONSIDERED FOR REHAB AT [facility] PRIOR TO GOING HOME, REPORTS HER DAUGHTER WILL PICK HER UP FOR DISCHARGE HOME. IMPORTANT MESSAGE FROM MEDICARE PROVIDED AND EXPLAINED. CM WILL DISCUSS POSSIBILITY OF EVALUATION BY INPATIENT REHAB AT [facility] WITH THE PHYSICIAN. CM TO FOLLOW AND ASSIST NEEDED. Manuscript Reader: Kin Newman DCPIA - Discharge Planning Initial Assessment Updated by [id number]: Kin Newman on 10/08/18 4:38 pm * Is the patient Alert and Oriented? Yes * How many steps to enter\exit or inside your home? * PCP DR. DAYSI WEEKS * [facility]acy [facility] IN [place] * Preadmission Environment Home with Family * ADLs Partial Dependent * Partial ADLs (Assistance needed) Bathing Medication Management * Equipment Cane * Other Equipment USES CANE FOR AMBULATION AND BLINDNESS NO MEDICAL EQUIPMENT PROVIDER PREFERENCE * List name and contact numbers for known caregivers / representatives who currently or will assist patient after discharge: SIM MELARA, DTR, MICHAELGUSTAVO ORTA, SISTER, * Verbal permission to speak to the caregivers and representatives has been obtained from the patient. Yes * Community resources currently utilized Other * Please name any agencies selected above. OUTPATIENT DIALYSIS, [facility] [facility], MWF, 1130AM, [employer] [facility] [facility] * Additional services required to return to the preadmission environment? Yes * Can the patient safely return to the preadmission environment? Yes * Has this patient been hospitalized within the prior 30 days at any hospital? No External Providers External Provider: [facility] Next Contact Date: 10/10/2018 Service Request Date: Service Type: Resolution: Reviewer: Comments: Coverage Notice Reviewer: [id number] - Kin Newman Notice Issued Date-Time: 10/08/2018 16:15 Notice Type: IM Discharge Notice Notice Delivered To: Family Member Relationship to Patient: Daughter Electronic Parts Designer Name: SIM MELARA Delivery Method: HAND - Hand Delivered Kaia Days: Prior Verbal Notification: Recipient Understood Notice: Yes Recipient Signature: Yes Med Rec Note Co-signed by Attending: Coverage Notice Comment: Last DP export: 10/08/18 3:44 Patient Name: PRADEEP DUBON Page [id number] at 0931 All edits/amendments must be made on the electronic document DICTATION DATE: 10/10/18929 LENS POLISHER HAND: LISA 10/10/18929 RPT#: [id number] DC DATE: STATUS: ADM IN [facility] [address] [place] [address] END OF REPORT
--- NOTE | ~2018-09-28 | MORECARE ---
CASE MANAGEMENT DISCHARGE SUMMARY PATIENT: PRADEEP DUBON UNIT: [id number] ADM DATE: 09/28/18 AGE: 53 : 61 SEX: F ROOM/BED: D.5248 AUTHOR: HORTENSIA,DOC PHYSICIAN: REFERRING PHYSICIAN: SANDEE SANCHEZ MD DATE OF SERVICE: 10/10/18 Discharge Plan Patient Name: PRADEEP DUBON Facility: [facility]:[place] : 1965 Planned Disposition: Product Development Consultant Acute Care Facility Anticipated Discharge Date: 10/10/18 Discharge Date: Expected LOS: 12 Initial Reviewer: [id number] Initial Review Date: 10/08/2018 Generated: 10/10/18 5:24 pm Comments DCP- Discharge Planning Updated by [id number]: Dmitri Raines on 10/10/18 3:[address] Patient Name: PRADEEP DUBON Encounter No: [id number] : 1965 Primary Insurance: MEDICARE A & B Anticipated DC Date: 10-10-2018 Planned Disposition: Product Development Consultant Acute Care Facility External Planned Provider: [facility] DCP follow-up note: CM RECEIVED ORDER FOR LTACH EVALUATION, SPOKE TO PT IN ROOM, DISCUSSED LTACH LOCATIONS AND PROVIDERS. PT WOULD LIKE TO STAY IN [place] FAMILY AND PT LIVE HERE. PT WOULD [facility]FERRAL TO [facility]. CM CALLED ANABELA AT [facility], , PROVIDED REFERRAL INFORMATION. CM FAXED REFERRAL TO [facility] AT [phone]. CM WAITING ADMISSION DETERMINATION FROM [facility]. Dmitri Raines, CASE MANAGEMENT Appended by Dmitri Raines on 10/10/2018 16:01 GROOMING ASSISTANT: CM RECEIVED MESSAGE FROM ANABELA OF [facility], THEY ARE NOT ABLE TO MEET PT'S NEEDS. CM MET WITH PT AND DAUGHTER,SIM. CM ADVISED OF ORDER FOR LTACH AND DECLINATION BY BENJY GARCIA. SIM REPORTS BEING UNHAPPY WITH PT'S CARE IN THE HOSPITAL AND IS GOING TO CALL THE DOCTOR NOW AND REQUEST A TRANSFER TO [facility] IN [place]. SIM NOR PT HAVE SPOKEN TO A TAX APPRAISER REGARDING COMPLAINTS ABOUT NURSING OR AIDE CARE. CM POINTED OUT THE NUMBER TO WATCH ASSEMBLY INSTRUCTOR AND ENCOURAGED BOTH PT AND DAUGHTER TO IMMEDIATELY REPORT ANY CARE NOT MEETING THEIR EXPECTATIONS. PT'S DAUGHTER STATED SHE IS STILL ASKING THE DOCTOR ABOUT A TRANSFER TO [facility]. CM CLARIFIED, [facility] VS [facility]. SIM STATES [facility], PT HAS BEEN THERE BEFORE AND RECEIVED GOOD CARE. CM EXPLAINED THAT INSURANCE MAY NOT PAY FOR TRANSFER AND TRANSPORTATON IF IT IS NOT TO A HIGHER LEVEL OF CARE; PT AND DAUGHTER BOTH REPORT UNDERSTANDING. THEY STILL WANT TRANSFERRED, REPORT CM CAN GO AHEAD AND SEND REFERRALS TO BOTH [facility] AND [facility] IN [place] FOR POSSIBLE OPTIONS AND SIM WILL CALL THE DOCTOR TO REQUEST TRANSFER. CM CALLED [facility], , PROVIDED REFERRAL TO [facility], FAXED REFERRAL TO [facility] AT [phone]. CM RECEIVED RETURN CALL FROM DELLA WHO INFORMED CM THAT PT ONLY HAS TWO MIDNIGHTS IN ICU DURING THIS STAY AND THAT MEDICARE WILL NOT COVER LTACH CARE SINCE PT WAS NOT IN THE ICU FOR AT LEAST THREE (3) MIDNIGHTS. CM CALLED [facility], , SPOKE TO YARELY, PROVIDED REFERRAL INFORMATION, FAXED REFERRAL TO [facility] AT [phone]. PT HAS BEEN DECLINED BY BENJY MONTGOM[place], [facility] IN [place]. CM WAITING ADMISSION DETERMINATION FROM [facility] IN [place]. CM ALSO WAITING DETERMINATION FROM [facility] REGARDING TRANSFER REQUEST PER PT AND FAMILY. DMITRI RAINES, CASE MANAGEMENT DCP- Discharge Planning Updated by [id number]: Herlinda Jacobson on 10/10/18 2:[address] RECEIVED VERBAL REQUEST TO ARRANGE TRANSFER TO [facility] IN [place] PER THE PATIENT AND FAMILY REQUEST. CM GEORGE HAS EXPLAINED TO FAMILY ABOUT LATERAL TRANSFER AND THE LIKELY OQUENDO THAT THE INSURANCE WILL NOT PAY FOR THE TRANSPORTATION THERE IF THERE IS A PHYSICIAN THAT WOULD ACCEPT HER. AT THAT TIME THEY FAMILY ASKED GEORGE TO TRY FOR LTACH IN [place] BUT HAVE SINCE CHANGED THIER MIND. @2102 TRANSFER CENTER WAS CALLED, SPOKE WITH FERNANDEZ. ALL INFORMATION GIVEN WITH TRANSFER DX OF SEPSIS PER FAMILY REQUEST. THE DOC TO DOC (PER TRISTEN MONTERROSO APN) IS TO BE DR LOBO. SHE GAVE ME HIS CELL PHONE NUMBER AND THIS WAS GIVEN TO THE TRANSFER CENTER. I FAXED FACE SHEET TO [phone], AND LEFT THE PHONE NUMBER TO THE FLOOR FOR HER AND THE PATIENTS BEDSIDE NURSES NAME WITH NOTATION THAT SHE WOULD BE HERE UNTIL 1900. WILL WAIT TO SEE IF THERE IS AN ACCEPTING. DCP- Discharge Planning Updated by [id number]: Dmitri Raines on 10/08/18 3:[address] Patient Name: PRADEEP DUBON Admission Status: ER Accout number: [id number] Admission Date: 09-28-2018 : 1965 Admission Diagnosis:FLU DUE TO UNIDENTIFIED INFLUENZA VIRUS W OTH RESP NOE Attending: SANDEE SANCHEZ Current LOS: 10 Anticipated DC Date: 10-10-2018 Planned Disposition: Inpatient Rehab Primary Insurance: MEDICARE A & B PLANNED EXTERNAL PROVIDER: [facility] INPATIENT REHAB Discharge Planning Comments: CM MET WITH PT AND DAUGHTER IN ROOM TO DISCUSS DISCHARGE PLANNING AND NEEDS. PRADEEP DUBON provided verbal consent to discuss current and ongoing needs with/in the presence of: DAUGHTERSIM. PT REPORTS LIVING AT HOME DEPENDENTLY WITH HER FAMILY WHO ASSISTS WITH BATHING AND MEDICATION MANAGEMENT. PT HAS A CANE WITH NO MEDICAL EQUIPMENT PROVIDER PREFERENCE. PT HAS NO OUTSIDE SERVICES ASSISTING IN THE HOME. CM DISCUSSED AVAILABILITY OF HOME HEALTH, REHAB SERVICES AND MEDICAL EQUIPMENT. PT REPORTS SHE WOULD LIKE TO BE CONSIDERED FOR REHAB AT [facility] PRIOR TO GOING HOME, REPORTS HER DAUGHTER WILL PICK HER UP FOR DISCHARGE HOME. IMPORTANT MESSAGE FROM MEDICARE PROVIDED AND EXPLAINED. CM WILL DISCUSS POSSIBILITY OF EVALUATION BY INPATIENT REHAB AT [facility] WITH THE PHYSICIAN. CM TO FOLLOW AND ASSIST NEEDED. Director Database: Dmitri Raines DCPIA - Discharge Planning Initial Assessment Updated by [email or web address]: Dmitri Raines on 10/08/18 4:38 pm * Is the patient Alert and Oriented? Yes * How many steps to enter\exit or inside your home? * PCP DR. DAYSI WEEKS * Pharmacy [facility] IN [place] * Preadmission Environment Home with Family * ADLs Partial Dependent * Partial ADLs (Assistance needed) Bathing Medication Management * Equipment Cane * Other Equipment USES CANE FOR AMBULATION AND BLINDNESS NO MEDICAL EQUIPMENT PROVIDER PREFERENCE * List name and contact numbers for known caregivers / representatives who currently or will assist patient after discharge: SIM MELARA, CLAUDIAR, MICHAEL ORTA, SISTER, * Verbal permission to speak to the caregivers and representatives has been obtained from the patient. Yes * Community resources currently utilized Other * Please name any agencies selected above. OUTPATIENT DIALYSIS, [facility] [facility], MWF, 1130AM, [employer] TRANSPORT VAN * Additional services required to return to the preadmission environment? Yes * Can the patient safely return to the preadmission environment? Yes * Has this patient been hospitalized within the prior 30 days at any hospital? No Coverage Notice Reviewer: [id number] Sarahi Raines Notice Issued Date-Time: 10/08/2018 16:15 Notice Type: IM Discharge Notice Notice Delivered To: Family Member Relationship to Patient: Daughter Resident Buyer Name: SIM MELARA Delivery Method: HAND - Hand Delivered Kaia Days: Prior Verbal Notification: Recipient Understood Notice: Yes Recipient Signature: Yes Med Rec Note Co-signed by Attending: Coverage Notice Comment: Last DP export: 10/10/18 3:06 Patient Name: PRADEEP DUBON Page 11723 at 1624 All edits/amendments must be made on the electronic document DICTATION DATE: 10/10/181622 COPS: LISA 10/10/18 162 RPT#: [id number] DC DATE: STATUS: ADM IN [facility] [address] [place] [address] END OF REPORT
--- NOTE | ~2018-09-28 | MORECARE ---
CASE MANAGEMENT DISCHARGE SUMMARY PATIENT: PRADEEP DUBON UNIT: [id number] ADM DATE: 09/28/18 AGE: 53 : 61 SEX: F ROOM/BED: D.3173 AUTHOR: HORTENSIA,DOC PHYSICIAN: REFERRING PHYSICIAN: SANDEE SANCHEZ MD DATE OF SERVICE: 10/10/18 Discharge Plan Patient Name: PRADEEP DUBON Facility: [facility]:[place] : 1965 Planned Disposition: [facility] Acute Care Facility Anticipated Discharge Date: 10/10/18 Discharge Date: Expected LOS: 12 Initial Reviewer: [id number] Initial Review Date: 10/08/2018 Generated: 10/10/18 11:20 am Comments DCP- Discharge Planning Updated by [id number]: Kin Newman on 10/10/18 9:[address] Patient Name: PRADEEP DUBON Encounter No: [id number] : 1965 Primary Insurance: MEDICARE A & B Anticipated DC Date: 10-10-2018 Planned Disposition: [facility] Acute Care Facility External Planned Provider: BENJY GARCIA [place] DCP follow-up note: CM RECEIVED ORDER FOR LTACH EVALUATION, SPOKE TO PT IN ROOM, DISCUSSED LTACH LOCATIONS AND PROVIDERS. PT WOULD LIKE TO STAY IN [place] FAMILY AND PT LIVE HERE. PT WOULD LIKE REFERRAL TO [facility]. CM CALLED ANABELA AT [facility], , PROVIDED REFERRAL INFORMATION. CM FAXED REFERRAL TO [facility] AT [phone]. CM WAITING ADMISSION DETERMINATION FROM [facility]. NOELLE Strauss DCP- Discharge Planning Updated by [id number]: Kin Newman on 10/08/18 3:[address] Patient Name: PRADEEP DBUON Admission Status: ER Accout number: [id number] Admission Date: 09-28-2018 : 1965 Admission Diagnosis:FLU DUE TO UNIDENTIFIED INFLUENZA VIRUS W OTH RESP NOE Attending: SANDEE SANCHEZ Current LOS: 10 Anticipated DC Date: 10-10-2018 Planned Disposition: Inpatient Rehab Primary Insurance: MEDICARE A & B PLANNED EXTERNAL PROVIDER: [facility] INPATIENT REHAB Discharge Planning Comments: CM MET WITH PT AND DAUGHTER IN ROOM TO DISCUSS DISCHARGE PLANNING AND NEEDS. PRADEEP DUBON provided verbal consent to discuss current and ongoing needs with/in the presence of: DAUGHTER, SIM. PT REPORTS LIVING AT HOME DEPENDENTLY WITH HER FAMILY WHO ASSISTS WITH BATHING AND MEDICATION MANAGEMENT. PT HAS A CANE WITH NO MEDICAL EQUIPMENT PROVIDER PREFERENCE. PT HAS NO OUTSIDE SERVICES ASSISTING IN THE HOME. CM DISCUSSED AVAILABILITY OF HOME HEALTH, REHAB SERVICES AND MEDICAL EQUIPMENT. PT REPORTS SHE WOULD LIKE TO BE CONSIDERED FOR REHAB AT [facility] PRIOR TO GOING HOME, REPORTS HER DAUGHTER WILL PICK HER UP FOR DISCHARGE HOME. IMPORTANT MESSAGE FROM MEDICARE PROVIDED AND EXPLAINED. CM WILL DISCUSS POSSIBILITY OF EVALUATION BY INPATIENT REHAB AT [facility] WITH THE PHYSICIAN. CM TO FOLLOW AND ASSIST NEEDED. Cyber Systems Administrator: Kin Newman [facility] - Discharge Planning Initial Assessment Updated by [email or web address]: Kin Newman on 10/08/18 4:38 pm * Is the patient Alert and Oriented? Yes * How many steps to enter\exit or inside your home? * PCP DR. DAYSI WEEKS * [facility]acy [facility] IN [place] * Preadmission Environment Home with Family * ADLs Partial Dependent * Partial ADLs (Assistance needed) Bathing Medication Management * Equipment Cane * Other Equipment USES CANE FOR AMBULATION AND BLINDNESS NO MEDICAL EQUIPMENT PROVIDER PREFERENCE * List name and contact numbers for known caregivers / representatives who currently or will assist patient after discharge: SIM MELARA, DTR, MICHAEL ORTA, SISTER, * Verbal permission to speak to the caregivers and representatives has been obtained from the patient. Yes * Community resources currently utilized Other * Please name any agencies selected above. OUTPATIENT DIALYSIS, [facility] [facility], MWF, 1130AM, [employer]ICA[employer] TRANSPORT VAN * Additional services required to return to the preadmission environment? Yes * Can the patient safely return to the preadmission environment? Yes * Has this patient been hospitalized within the prior 30 days at any hospital? No Coverage Notice Reviewer: [id number] - Kin Newman Notice Issued Date-Time: 10/08/2018 16:15 Notice Type: IM Discharge Notice Notice Delivered To: Family Member Relationship to Patient: Daughter Molding Line Assistant Name: SIM MELARA Delivery Method: HAND - Hand Delivered Kaia Days: Prior Verbal Notification: Recipient Understood Notice: Yes Recipient Signature: Yes Med Rec Note Co-signed by Attending: Coverage Notice Comment: Last DP export: 10/10/18 9:13 Patient Name: PRADEEP DUBON Page 14834 at 1020 All edits/amendments must be made on the electronic document DICTATION DATE: 10/10/18 1020 CIGARETTE SELLER: LISA 10/10/18 1020 RPT#: [id number] DC DATE: STATUS: ADM IN [facility] [address] [place] [address] END OF REPORT
--- NOTE | ~2018-09-28 | OP ---
PATIENT NAME: PRADEEP GONZALEZ MEDICAL RECORD: [id number] :[birth year] LOCATION:D. D.2112 ADMISSION DATE:09/28/18 SURGEON: GRACIE GOLDSTEIN MD DATE OF OPERATION: 10/02/2018 PREOPERATIVE DIAGNOSES: Methicillin-resistant Staphylococcus aureus sepsis and bacteremia associated with a tunneled dialysis catheter. ADDITIONAL DIAGNOSES: End-stage renal disease, dependence on hemodialysis; diabetes; and infected tunneled dialysis catheter. OPERATION PERFORMED: Removal of tunneled dialysis catheter from the right internal jugular vein and insertion of a 15 cm Trialysis catheter under fluoroscopy via the right internal jugular vein. SURGEON: Gracie Goldstein MD ANESTHESIA: General with LMA per UTILITY OPERATOR. PREOPERATIVE NOTE: Ms. Gonzalez is a 53-year-old female, who has end-stage renal disease and is on chronic hemodialysis with a catheter in the right internal jugular vein. She has been admitted to the hospital, and in the ICU now with a staph septicemia and Dr. Fierro has asked that I remove her catheter and place a Trialysis. She also has no other venous access and the Trialysis will be very helpful in that regard. DESCRIPTION OF PROCEDURE: Under general anesthesia, the patient was prepped and draped in a sterile manner. I made an incision at the base of the neck and exposed the tunneled catheter. It was grasped with a hemostat and with minimal dissection the cuff was freed, the catheter was transected and the external section with the cuff was removed and discarded. The intravascular portion of the catheter was then removed under fluoroscopy over a guidewire. The tip was sent for culture and a new Trialysis 15 cm catheter was inserted and its tip positioned in the right atrium under fluoroscopy. All 3 lumens functioned well and were flushed and then heparin-locked, clamped and capped. The transverse cervical incision was closed with a few interrupted inverted 3-0 Vicryl subcuticular sutures and sterile dressing applied. The catheter was sutured in place with a 2-0 Prolene. TRANSINT:[id number] Voice Confirmation ID: [id number] DOCUMENT ID: [id number] GRACIE GOLDSTEIN MD at 1657 CC: [id number] DICTATION DATE: 10/02/181934 STEWARD/STEWARDESS ROOM: 10/02/182120 ADM IN [place] [id number] [place] [address]
--- NOTE | ~2018-09-28 | MORECARE ---
CASE MANAGEMENT DISCHARGE SUMMARY PATIENT: PRADEEP DUBON UNIT: [id number] ADM DATE: 09/28/18 AGE: 53 : 61 SEX: F ROOM/BED: D.3683 AUTHOR: VICTOR MANUEL BAZAN PHYSICIAN: REFERRING PHYSICIAN: SANDEE SANCHEZ MD DATE OF SERVICE: 10/12/18 Discharge Plan Patient Name: PRADEEP DUBON Facility: [facility]:[place] : 1965 Planned Disposition: Acute Care Hospital Anticipated Discharge Date: 10/11/18 Discharge Date: Expected LOS: 13 Initial Reviewer: [id number] Initial Review Date: 10/08/2018 Generated: 10/12/18 3:59 pm Comments DCP- Discharge Planning Updated by [email or web address]: Dmitri Raines on 10/12/18 1:[address] Patient Name: PRADEEP DUBON Encounter No: [id number] : 1965 Primary Insurance: MEDICARE A & B Anticipated DC Date: 10-11-2018 Planned Disposition: Acute Care Hospital External Planned Provider: [facility] DCP follow-up note: CM SPOKE TO RN TRACIE TSAI WHO ADVISED PT HAS BEEN ACCEPTED TO [facility] BY DR. REAL. TRANSFER CENTER WILL CALL [facility] AFTER 1600 HOURS INSTRUCTED BY [facility] TO CHECK BED AVAILABILITY. TRANSFER CENTER WILL NOTIFY MED 2 NURSE WHEN BED BECOMES AVAILABLE. CM NOTIFIED PT IN ROOM, PT IN AGREEMENT WITH TRANSFER TO [facility], ASKED CM TO CALL SIM PADILLA. CM CALLED SIM MELARA, DAUGHTER, , WHO IS ALSO IN AGREEMENT WITH TRANSFER TO [facility]. TRANSFER CENTER WILL NOTIFY MED 2 NURSE WHEN BED BECOMES AVAILABLE AT [facility]. Dmitri Raines, CASE MANAGEMENT DCP- Discharge Planning Updated by [id number]: Dmitri Raines on 10/11/18 3:[address] Patient Name: PRADEEP DUBON Encounter No: [id number] : 1965 Primary Insurance: MEDICARE A & B Anticipated DC Date: 10-11-2018 Planned Disposition: Acute Care Hospital External Planned Provider: [facility] DCP follow-up note: CM RECEIVED CALL FROM [facility] IN [place]; PT NOT MEETING MEDICARE GUIDELINES FOR LTACH ADMISSION. PT HAS ALSO BEEN DECLINED BY [facility] ([facility]) AND [facility] ([facility] IN [place] FOR SAME REASONS. CM SPOKE TO PT IN ROOM, INFORMED HER THAT [facility] IN [place] DECLINED AND THAT WE ARE WAITING ON [facility] DETERMINATION. CM DISCUSSED [facility] FACILITY REHAB PLACEMENT. PT REPORTS SHE CANNOT GO TO ANY FDC IN THE [facility] SHE WAS IN A [place] [facility] AND THEY FOUND DRUG PARAPHENALIA IN HER SUITCASE. CM ASKED IF CM COULD AT LEAST TRY THE [facility] IN [place], PT STATED YES. PT'S DAUGHTER WAS NOT IN ROOM, PT STATES SHE WENT TO WORK AND MAY BE BACK LATER THIS EVENING OR IN THE MORNING FOR CM TO INFORM OF ABOVE. CM NOTIFIED JD OF [facility] OF REFERRAL, . CM FAXED REHAB REFERRAL TO [facility] AT [phone]. CM WAITING ADMISSION DETERMINATION FROM [facility] (PT STATES SHE HAS BEEN BANNED FROM ALL [facility] FACILITIES IN [facility]). CM ALSO WAITING ON ADMISSION DETERMINATION FROM [facility] REGARDING LATERAL TRANSFER REQUEST. DMITRI RAINES, CASE MANAGEMENT DCP- Discharge Planning Updated by [id number]: Dmitri Raines on 10/10/18 4:[address] Patient Name: PRADEEP DUBON Encounter No: [id number] : 1965 Primary Insurance: MEDICARE A & B Anticipated DC Date: 10-10-2018 Planned Disposition: Senior Living Acute Care Facility External Planned Provider: [facility] [place] DCP follow-up note: CM RECEIVED ORDER FOR LTACH EVALUATION, SPOKE TO PT IN ROOM, DISCUSSED LTACH LOCATIONS AND PROVIDERS. PT WOULD LIKE TO STAY IN [place] FAMILY AND PT LIVE HERE. PT WOULD LIKE REFERRAL TO [facility]. CM CALLED ANABELA AT [facility], , PROVIDED REFERRAL INFORMATION. CM FAXED REFERRAL TO [facility] AT [phone]. CM WAITING ADMISSION DETERMINATION FROM [facility]. Dmitri Raines, CASE MANAGEMENT Appended by Dmitri Raines on 10/10/2018 16:01 NETWORK MGR: CM RECEIVED MESSAGE FROM ANABELA OF [facility], THEY ARE NOT ABLE TO MEET PT'S NEEDS. CM MET WITH PT AND DAUGHTER,SIM. CM ADVISED OF ORDER FOR LTACH AND DECLINATION BY BENJY GARCIA. SIM REPORTS BEING UNHAPPY WITH PT'S CARE IN THE HOSPITAL AND IS GOING TO CALL THE DOCTOR NOW AND REQUEST A TRANSFER TO [facility] IN [place]. SIM NOR PT HAVE SPOKEN TO A SR. PAYROLL PROCESSOR REGARDING COMPLAINTS ABOUT NURSING OR AIDE CARE. CM POINTED OUT THE NUMBER TO MUFFLER MECHANIC AND ENCOURAGED BOTH PT AND DAUGHTER TO IMMEDIATELY REPORT ANY CARE NOT MEETING THEIR EXPECTATIONS. PT'S DAUGHTER STATED SHE IS STILL ASKING THE DOCTOR ABOUT A TRANSFER TO [facility]. CM CLARIFIED, [facility] VS [facility]. SIM STATES [facility], PT HAS BEEN THERE BEFORE AND RECEIVED GOOD CARE. CM EXPLAINED THAT INSURANCE MAY NOT PAY FOR TRANSFER AND TRANSPORTATON IF IT IS NOT TO A HIGHER LEVEL OF CARE; PT AND DAUGHTER BOTH REPORT UNDERSTANDING. THEY STILL WANT TRANSFERRED, REPORT CM CAN GO AHEAD AND SEND REFERRALS TO BOTH [facility] AND [facility] IN [place] FOR POSSIBLE OPTIONS AND SIM WILL CALL THE DOCTOR TO REQUEST TRANSFER. CM CALLED [facility], , PROVIDED REFERRAL TO [place], FAXED REFERRAL TO [facility] AT [phone]. CM RECEIVED RETURN CALL FROM DELLA WHO INFORMED CM THAT PT ONLY HAS TWO MIDNIGHTS IN ICU DURING THIS STAY AND THAT MEDICARE WILL NOT COVER LTACH CARE SINCE PT WAS NOT IN THE ICU FOR AT LEAST THREE (3) MIDNIGHTS. CM CALLED [facility], , SPOKE TO YARELY, PROVIDED REFERRAL INFORMATION, FAXED REFERRAL TO [facility] AT [phone]. PT HAS BEEN DECLINED BY BENJY GARCIA [place], [facility] IN [place]. CM WAITING ADMISSION DETERMINATION FROM [facility] IN [place]. CM ALSO WAITING DETERMINATION FROM [facility] [place] REGARDING TRANSFER REQUEST PER PT AND FAMILY. DMITRI RAINES, CASE MANAGEMENT Appended by Dmitri Raines on 10/10/2018 17:48 NETWORK MGR: CM RECEIVE CALL FROM EDMOND ABREU OF [facility], ; EDMOND WILL CHECK WITH [employer] IN THE MORNING FOR BILLING CODES FOR TELEMETRY MONITORING WHICH MAY ASSIST IN QUALIFYING PT FOR LTACH WITHOUT THE THREE MIDNIGHTS IN ICU DURING HOSPITAL STAY. PT HAS BEEN DECLINED BY BENJY GARCIA [facility] IN [place]. CM WAITING ADMISSION DETERMINATION FROM [facility] IN [place]. CM ALSO WAITING DETERMINATION FROM [facility] [place] REGARDING TRANSFER REQUEST PER PT AND FAMILY. MDITRI RAINES, CASE MANAGEMENT DCP- Discharge Planning Updated by [id number]: Herlinda Tsai on 10/10/18 2:[address] RECEIVED VERBAL REQUEST TO ARRANGE TRANSFER TO [facility] PER THE PATIENT AND FAMILY REQUEST. CM GEORGE HAS EXPLAINED TO FAMILY ABOUT LATERAL TRANSFER AND THE LIKELY [facility] THAT THE INSURANCE WILL NOT PAY FOR THE TRANSPORTATION THERE IF THERE IS A PHYSICIAN THAT WOULD ACCEPT HER. AT THAT TIME THEY FAMILY ASKED GEORGE TO TRY FOR LTACH IN [place] BUT HAVE SINCE CHANGED THIER MIND. @3430 TRANSFER CENTER WAS CALLED, SPOKE WITH FERNANDEZ. ALL INFORMATION GIVEN WITH TRANSFER DX OF [facility] PER FAMILY REQUEST. THE DOC TO DOC (PER [facility]ST[facility] MONTERROSO [facility]) IS TO BE DR LOBO. SHE GAVE ME HIS CELL PHONE NUMBER AND THIS WAS GIVEN TO THE TRANSFER CENTER. I FAXED FACE SHEET TO [phone], AND LEFT THE PHONE NUMBER TO THE FLOOR FOR HER AND THE PATIENTS BEDSIDE NURSES NAME WITH NOTATION THAT SHE WOULD BE HERE UNTIL 1900. WILL WAIT TO SEE IF THERE IS AN ACCEPTING. DCP- Discharge Planning Updated by [id number]: Dmitri Raines on 10/08/18 3:[address] Patient Name: PRADEEP DUBON Admission Status: ER Accout number: [id number] Admission Date: 09-28-2018 : 1965 Admission Diagnosis:FLU DUE TO UNIDENTIFIED INFLUENZA VIRUS W OTH RESP NOE Attending: SANDEE SANCHEZ Current LOS: 10 Anticipated DC Date: 10-10-2018 Planned Disposition: Inpatient Rehab Primary Insurance: MEDICARE A & B PLANNED EXTERNAL PROVIDER: [facility] INPATIENT REHAB Discharge Planning Comments: CM MET WITH PT AND DAUGHTER IN ROOM TO DISCUSS DISCHARGE PLANNING AND NEEDS. PRADEEP DUBON provided verbal consent to discuss current and ongoing needs with/in the presence of: DAUGHTERSIM. PT REPORTS LIVING AT HOME DEPENDENTLY WITH HER FAMILY WHO ASSISTS WITH BATHING AND MEDICATION MANAGEMENT. PT HAS A CANE WITH NO MEDICAL EQUIPMENT PROVIDER PREFERENCE. PT HAS NO OUTSIDE SERVICES ASSISTING IN THE HOME. CM DISCUSSED AVAILABILITY OF HOME HEALTH, REHAB SERVICES AND MEDICAL EQUIPMENT. PT REPORTS SHE WOULD LIKE TO BE CONSIDERED FOR REHAB AT [facility] PRIOR TO GOING HOME, REPORTS HER DAUGHTER WILL PICK HER UP FOR DISCHARGE HOME. IMPORTANT MESSAGE FROM MEDICARE PROVIDED AND EXPLAINED. CM WILL DISCUSS POSSIBILITY OF EVALUATION BY INPATIENT REHAB AT [facility] WITH THE PHYSICIAN. CM TO FOLLOW AND ASSIST NEEDED. Retail Clerk: Dmitri Raines DCPIA - Discharge Planning Initial Assessment Updated by [email or web address]: Dmitri Raines on 10/08/18 4:38 pm * Is the patient Alert and Oriented? Yes * How many steps to enter\exit or inside your home? * PCP DR. DAYSI WEEKS * [facility] IN [place] * Preadmission Environment Home with Family * ADLs Partial Dependent * Partial ADLs (Assistance needed) Bathing Medication Management * Equipment Cane * Other Equipment USES CANE FOR AMBULATION AND BLINDNESS NO MEDICAL EQUIPMENT PROVIDER PREFERENCE * List name and contact numbers for known caregivers / representatives who currently or will assist patient after discharge: SIM MELARA, DTR, MICHAEL ORTA, SISTER, * Verbal permission to speak to the caregivers and representatives has been obtained from the patient. Yes * Community resources currently utilized Other * Please name any agencies selected above. OUTPATIENT DIALYSIS, [facility], MWF, 1130AM, [employer]ICA[employer] TRANSP[employer] VAN * Additional services required to return to the preadmission environment? Yes * Can the patient safely return to the preadmission environment? Yes * Has this patient been hospitalized within the prior 30 days at any hospital? No Coverage Notice Reviewer: [id number] Sarahi Raines Notice Issued Date-Time: 10/08/2018 16:15 Notice Type: IM Discharge Notice Notice Delivered To: Family Member Relationship to Patient: Daughter Hotel Attendant Name: SIM MELARA Delivery Method: HAND - Hand Delivered Kaia Days: Prior Verbal Notification: Recipient Understood Notice: Yes Recipient Signature: Yes Med Rec Note Co-signed by Attending: Coverage Notice Comment: Reviewer: [email or web address] Sarahi Raines Notice Issued Date-Time: 10/11/2018 15:00 Notice Type: Patient Choice Letter Notice Delivered To: Patient Relationship to Patient: Hotel Attendant Name: Delivery Method: HAND - Hand Delivered Kaia Days: Prior Verbal Notification: Recipient Understood Notice: Yes Recipient Signature: Med Rec Note Co-signed by Attending: Coverage Notice Comment: [place], VERBAL CONSENT; PT DID NOT WANT TO COME OUT FROM UNDER THE WARM [place]. Last DP export: 10/11/18 4:01 Patient Name: PRADEEP DUBON Page [id number] at 1459 All edits/amendments must be made on the electronic document DICTATION DATE: 10/12/181457 DRAWER IN: LISA 10/12/181457 RPT#: [id number] DC DATE: STATUS: ADM IN [facility] [address] [place] [address] END OF REPORT
[~2018-09-28 16:26] MED LIST: COZAAR100 MG PO; EFFEXOR75 MG PO; HYDRALAZINE HC100 MG PO; ISOSORBIDE MONO60 M1 PO; LEVEMIR100 U/M1 SQ; LIPITOR40 MG PO; NEPHRO-VITE RX1 TAB PO; NORVASC10 MG PO; NOVOLOG100 U/M1 SC; OMEPRAZOLE40 MG PO; PROZAC10 MG PO; SEROQUEL25 MG PO; TUMS500 MG PO; [UNRECOGNIZED DRUG - CODE] IM
[2018-09-28 16:55] LABS: BASOPHILS 0.1 % (0-2); EOSINOPHILS 0 % (0-7); HEMATOCRIT 32.1 % (36.0-48.0); HEMOGLOBIN 10.8 g/dL (12-16); IMMATURE GRANULOCYTES 0.8 % (0-5); MCH 31.7 pg (26.0-34.0); MCHC 33.6 g/dL (31.0-37.0); MCV 94.1 fL (80.0-100.0); MEAN PLATELET VOLUME 11.4 fL (7.4-10.4); MONOCYTES 6.7 % (2-11); NEUTROPHILS 86.4 % (40-80); RBC 3.41 10x6/uL (4.00-5.40); RDW 13.6 % (11.5-14.5); WBC 17.1 10x3/uL (4.8-10.8)
[2018-09-28 17:03] LABS: PLATELET COUNT 121 10x3/uL (130-400)
[2018-09-28 17:08] LABS: ALBUMIN 2.6 g/dL (3.4-5.0); ANION GAP 12.9 mmol/L (8-16); BILIRUBIN - TOTAL 0.56 mg/dL (0.2-1.3); CALCIUM 8.7 mg/dL (8.5-10.1); CARBON DIOXIDE 26.1 mmol/L (21.0-32.0); CREATININE - SERUM 5.7 mg/dL (0.6-1.3); PROTEIN - SERUM 7.3 g/dL (6.4-8.2)
[2018-09-28 18:23] VITALS: BP 96/60
[2018-09-28 23:10] VITALS: BP 104/48; BMI 20.8
[2018-09-29 04:31] LABS: BASOPHILS 0.2 % (0-2); EOSINOPHILS 0 % (0-7); HEMATOCRIT 32.7 % (36.0-48.0); HEMOGLOBIN 11.1 g/dL (12-16); IMMATURE GRANULOCYTES 1.8 % (0-5); LYMPHOCYTES 5.3 % (15-50); MCH 31.9 pg (26.0-34.0); MCHC 33.9 g/dL (31.0-37.0); MEAN PLATELET VOLUME 11.8 fL (7.4-10.4); MONOCYTES 7.7 % (2-11); PLATELET COUNT 122 10x3/uL (130-400); RBC 3.48 10x6/uL (4.00-5.40); RDW 13.8 % (11.5-14.5)
[2018-09-29 05:10] LABS: ANION GAP 17.1 mmol/L (8-16); CALCIUM 8.4 mg/dL (8.5-10.1); CREATININE - SERUM 6.5 mg/dL (0.6-1.3); MAGNESIUM - SERUM 1.4 mg/dL (1.8-2.4); PHOSPHOROUS 4.3 mg/dL (2.5-4.9); POTASSIUM - SERUM 4.1 mmol/L (3.5-5.1)
[2018-09-29 06:16] VITALS: BP 110/51
[2018-09-29 08:07] VITALS: BMI 20.8
[2018-09-29 09:35] VITALS: Ht 165.1 cm
[2018-09-29 16:00] VITALS: BP 89/54
[2018-09-29 21:23] VITALS: BP 78/51
[2018-09-30 05:25] VITALS: BP 81/57
[2018-09-30 05:40] LABS: BASOPHILS 0.1 % (0-2); EOSINOPHILS 0.1 % (0-7); HEMATOCRIT 29.5 % (36.0-48.0); HEMOGLOBIN 10.1 g/dL (12-16); IMMATURE GRANULOCYTES 0.7 % (0-5); LYMPHOCYTES 6.7 % (15-50); MCH 32.1 pg (26.0-34.0); MCHC 34.2 g/dL (31.0-37.0); MCV 93.7 fL (80.0-100.0); MEAN PLATELET VOLUME 12.4 fL (7.4-10.4); MONOCYTES 8.7 % (2-11); NEUTROPHILS 83.7 % (40-80); PLATELET COUNT 145 10x3/uL (130-400); RBC 3.15 10x6/uL (4.00-5.40); RDW 14.1 % (11.5-14.5); WBC 13.6 10x3/uL (4.8-10.8)
[2018-09-30 05:48] LABS: ANION GAP 14.5 mmol/L (8-16); CALCIUM 8.2 mg/dL (8.5-10.1); CARBON DIOXIDE 25.7 mmol/L (21.0-32.0); CREATININE - SERUM 7.7 mg/dL (0.6-1.3); POTASSIUM - SERUM 4.2 mmol/L (3.5-5.1)
[2018-09-30 08:27] VITALS: BP 149/84
[2018-09-30 11:14] VITALS: BP 148/76
[2018-09-30 20:00] VITALS: BP 145/72
[2018-10-01] VITALS (20 sets, daily range): BP systolic 63–166; BP diastolic 43–86
[2018-10-01 05:58] LABS: BASOPHILS 0.1 % (0-2); EOSINOPHILS 0 % (0-7); HEMATOCRIT 29.9 % (36.0-48.0); HEMOGLOBIN 10.3 g/dL (12-16); IMMATURE GRANULOCYTES 2.4 % (0-5); LYMPHOCYTES 5.8 % (15-50); MCH 31.6 pg (26.0-34.0); MCHC 34.4 g/dL (31.0-37.0); MEAN PLATELET VOLUME 12.2 fL (7.4-10.4); MONOCYTES 9.2 % (2-11); NEUTROPHILS 82.5 % (40-80); PLATELET COUNT 157 10x3/uL (130-400); RBC 3.26 10x6/uL (4.00-5.40); RDW 13.9 % (11.5-14.5); WBC 13.6 10x3/uL (4.8-10.8)
[2018-10-01 06:11] LABS: ANION GAP 21.2 mmol/L (8-16); CARBON DIOXIDE 22.4 mmol/L (21.0-32.0); CREATININE - SERUM 8.9 mg/dL (0.6-1.3); POTASSIUM - SERUM 4.6 mmol/L (3.5-5.1)
[2018-10-01 06:26] LABS: MCV 91.7 fL (80.0-100.0)
[2018-10-02] VITALS (26 sets, daily range): BP systolic 84–123; BP diastolic 43–64
[2018-10-02 05:27] LABS: BASOPHILS 0.2 % (0-2); EOSINOPHILS 0.1 % (0-7); HEMATOCRIT 26.4 % (36.0-48.0); HEMOGLOBIN 9.2 g/dL (12-16); LYMPHOCYTES 5.7 % (15-50); MCH 31.9 pg (26.0-34.0); MCHC 34.8 g/dL (31.0-37.0); MCV 91.7 fL (80.0-100.0); MEAN PLATELET VOLUME 11.2 fL (7.4-10.4); MONOCYTES 14.8 % (2-11); NEUTROPHILS 78.2 % (40-80); PLATELET COUNT 152 10x3/uL (130-400); RBC 2.88 10x6/uL (4.00-5.40); WBC 12.1 10x3/uL (4.8-10.8)
[2018-10-02 05:53] LABS: ANION GAP 18.7 mmol/L (8-16); CARBON DIOXIDE 23.6 mmol/L (21.0-32.0); CREATININE - SERUM 6.7 mg/dL (0.6-1.3); PHOSPHOROUS 5.6 mg/dL (2.5-4.9); POTASSIUM - SERUM 4.3 mmol/L (3.5-5.1)
[2018-10-02 06:02] LABS: MAGNESIUM - SERUM 2.6 mg/dL (1.8-2.4)
[2018-10-02 14:40] LABS: MACROPHAGES BF 1 %; NEUT - BF 92 %
[2018-10-03] VITALS (13 sets, daily range): BP systolic 82–114; BP diastolic 50–65
[2018-10-03 05:04] LABS: BASOPHILS 0.2 % (0-2); EOSINOPHILS 0 % (0-7); HEMATOCRIT 27.1 % (36.0-48.0); HEMOGLOBIN 9.3 g/dL (12-16); IMMATURE GRANULOCYTES 3.1 % (0-5); MCH 31.4 pg (26.0-34.0); MCHC 34.3 g/dL (31.0-37.0); MCV 91.6 fL (80.0-100.0); MEAN PLATELET VOLUME 11.1 fL (7.4-10.4); MONOCYTES 12.6 % (2-11); NEUTROPHILS 76.1 % (40-80); RBC 2.96 10x6/uL (4.00-5.40); RDW 14.1 % (11.5-14.5); WBC 12.3 10x3/uL (4.8-10.8)
[2018-10-03 05:06] LABS: PLATELET COUNT 209 10x3/uL (130-400)
[2018-10-03 05:25] LABS: ALBUMIN 1.6 g/dL (3.4-5.0); BILIRUBIN - TOTAL 0.62 mg/dL (0.2-1.3); CARBON DIOXIDE 21.6 mmol/L (21.0-32.0); CREATININE - SERUM 7.7 mg/dL (0.6-1.3); PHOSPHOROUS 6.6 mg/dL (2.5-4.9); POTASSIUM - SERUM 4.6 mmol/L (3.5-5.1); PROTEIN - SERUM 6.6 g/dL (6.4-8.2); VANCOMYCIN - RANDOM 15.1 ug/mL (10.0-20.0)
[2018-10-04] VITALS: BP 101/44
[2018-10-04 01:05] VITALS: BP 100/48
[2018-10-04 04:00] VITALS: BP 170/65
[2018-10-04 04:58] LABS: BASOPHILS 0.4 % (0-2); EOSINOPHILS 0.2 % (0-7); HEMATOCRIT 28.1 % (36.0-48.0); HEMOGLOBIN 9.7 g/dL (12-16); IMMATURE GRANULOCYTES 7.7 % (0-5); LYMPHOCYTES 6.4 % (15-50); MCH 31.5 pg (26.0-34.0); MCHC 34.5 g/dL (31.0-37.0); MCV 91.2 fL (80.0-100.0); MEAN PLATELET VOLUME 10.2 fL (7.4-10.4); MONOCYTES 9.9 % (2-11); NEUTROPHILS 75.4 % (40-80); PLATELET COUNT 248 10x3/uL (130-400); RBC 3.08 10x6/uL (4.00-5.40); RDW 14.4 % (11.5-14.5)
[2018-10-04 05:17] LABS: ALBUMIN 1.5 g/dL (3.4-5.0); ANION GAP 20.7 mmol/L (8-16); BILIRUBIN - TOTAL 0.67 mg/dL (0.2-1.3); CARBON DIOXIDE 21.3 mmol/L (21.0-32.0); PROTEIN - SERUM 6.7 g/dL (6.4-8.2)
[2018-10-04 05:22] LABS: CREATININE - SERUM 4.9 mg/dL (0.6-1.3)
[2018-10-04 05:37] LABS: WBC 18.3 10x3/uL (4.8-10.8)
[2018-10-04 08:19] VITALS: BP 101/51
[2018-10-04 11:02] VITALS: BP 109/56
[2018-10-04 15:02] VITALS: BP 106/50
[2018-10-05 08:07] VITALS: BP 151/50
[2018-10-05 08:33] LABS: HEMATOCRIT 26.2 % (36.0-48.0); HEMOGLOBIN 9.1 g/dL (12-16); MCH 31.7 pg (26.0-34.0); MCHC 34.7 g/dL (31.0-37.0); MCV 91.3 fL (80.0-100.0); MEAN PLATELET VOLUME 10.4 fL (7.4-10.4); PLATELET COUNT 297 10x3/uL (130-400); RBC 2.87 10x6/uL (4.00-5.40); RDW 14.3 % (11.5-14.5); WBC 23.2 10x3/uL (4.8-10.8)
[2018-10-05 08:44] LABS: ANION GAP 18.7 mmol/L (8-16); CALCIUM 7.9 mg/dL (8.5-10.1); CREATININE - SERUM 6.2 mg/dL (0.6-1.3); POTASSIUM - SERUM 3.7 mmol/L (3.5-5.1)
[2018-10-05 08:52] LABS: EOSINOPHILS 1 % (0-7); LYMPHOCYTES 9 % (15-50); MONOCYTES 3 % (2-11); NEUTROPHILS 78 % (40-80); PLATELET ESTIMATE NORMAL; PLATELET MORPHOLOGY GIANT PLTS PRESENT
[2018-10-05 11:34] VITALS: BP 148/50
[2018-10-05 20:00] VITALS: BP 141/67
[2018-10-06] VITALS: BP 138/65
[2018-10-06 04:00] VITALS: BP 142/70
[2018-10-06 06:01] LABS: BASOPHILS 0.3 % (0-2); EOSINOPHILS 0.6 % (0-7); HEMATOCRIT 27.7 % (36.0-48.0); HEMOGLOBIN 9.7 g/dL (12-16); IMMATURE GRANULOCYTES 7.3 % (0-5); LYMPHOCYTES 4.5 % (15-50); MCH 32.1 pg (26.0-34.0); MCV 91.7 fL (80.0-100.0); MEAN PLATELET VOLUME 10.1 fL (7.4-10.4); MONOCYTES 5.7 % (2-11); NEUTROPHILS 81.6 % (40-80); PLATELET COUNT 310 10x3/uL (130-400); RBC 3.02 10x6/uL (4.00-5.40); RDW 14.4 % (11.5-14.5); WBC 29.2 10x3/uL (4.8-10.8)
[2018-10-06 06:48] LABS: ANION GAP 12.8 mmol/L (8-16); CALCIUM 8.1 mg/dL (8.5-10.1); CREATININE - SERUM 4.5 mg/dL (0.6-1.3); POTASSIUM - SERUM 3.8 mmol/L (3.5-5.1)
[2018-10-06 09:08] VITALS: BP 150/78
[2018-10-06 14:19] VITALS: BP 156/86
[2018-10-06 18:00] VITALS: BP 156/68
[2018-10-06 20:00] VITALS: BP 138/55
[2018-10-07] VITALS: BP 130/60
[2018-10-07 04:00] VITALS: BP 136/60
[2018-10-07 05:50] LABS: BASOPHILS 0.1 % (0-2); EOSINOPHILS 2.2 % (0-7); HEMATOCRIT 25.6 % (36.0-48.0); HEMOGLOBIN 8.7 g/dL (12-16); IMMATURE GRANULOCYTES 4.6 % (0-5); LYMPHOCYTES 5.4 % (15-50); MCH 31.6 pg (26.0-34.0); MCV 93.1 fL (80.0-100.0); MEAN PLATELET VOLUME 10.1 fL (7.4-10.4); NEUTROPHILS 82.7 % (40-80); PLATELET COUNT 327 10x3/uL (130-400); RBC 2.75 10x6/uL (4.00-5.40); RDW 14.3 % (11.5-14.5); WBC 28.1 10x3/uL (4.8-10.8)
[2018-10-07 06:10] LABS: CALCIUM 7.6 mg/dL (8.5-10.1); CARBON DIOXIDE 25.7 mmol/L (21.0-32.0); CREATININE - SERUM 5.6 mg/dL (0.6-1.3); POTASSIUM - SERUM 3.7 mmol/L (3.5-5.1); VANCOMYCIN - RANDOM 21.9 ug/mL (10.0-20.0)
[2018-10-07 08:12] VITALS: BP 137/57
[2018-10-07 12:16] VITALS: BP 154/61
[2018-10-07 18:32] VITALS: BP 142/68
[2018-10-07 20:30] VITALS: BP 148/50
[2018-10-08 00:30] VITALS: BP 122/58
[2018-10-08 04:30] VITALS: BP 130/68
[2018-10-08 06:11] LABS: BASOPHILS 0.3 % (0-2); EOSINOPHILS 2.1 % (0-7); HEMATOCRIT 24.2 % (36.0-48.0); HEMOGLOBIN 7.9 g/dL (12-16); IMMATURE GRANULOCYTES 4.7 % (0-5); LYMPHOCYTES 8.2 % (15-50); MCH 31.3 pg (26.0-34.0); MCHC 32.6 g/dL (31.0-37.0); MONOCYTES 7.4 % (2-11); NEUTROPHILS 77.3 % (40-80); PLATELET COUNT 314 10x3/uL (130-400); RBC 2.52 10x6/uL (4.00-5.40); RDW 14.5 % (11.5-14.5); WBC 23.5 10x3/uL (4.8-10.8)
[2018-10-08 06:13] LABS: ANION GAP 13.3 mmol/L (8-16); CALCIUM 7.2 mg/dL (8.5-10.1); CARBON DIOXIDE 24.7 mmol/L (21.0-32.0); CREATININE - SERUM 6.4 mg/dL (0.6-1.3); VANCOMYCIN - RANDOM 21.3 ug/mL (10.0-20.0)
[2018-10-08 09:31] VITALS: BP 165/77
[2018-10-08 11:35] VITALS: BP 142/69
[2018-10-08 19:00] VITALS: BP 119/47
[2018-10-09 01:37] VITALS: BP 132/53
[2018-10-09 06:11] VITALS: BP 116/81
[2018-10-09 06:11] LABS: RBC 2.31 10x6/uL (4.00-5.40); WBC 20.4 10x3/uL (4.8-10.8)
[2018-10-09 06:13] LABS: BASOPHILS 0.2 % (0-2); EOSINOPHILS 1.1 % (0-7); HEMATOCRIT 22.3 % (36.0-48.0); HEMOGLOBIN 7.3 g/dL (12-16); LYMPHOCYTES 6.7 % (15-50); MCH 31.6 pg (26.0-34.0); MCHC 32.7 g/dL (31.0-37.0); MCV 96.5 fL (80.0-100.0); MEAN PLATELET VOLUME 9.6 fL (7.4-10.4); MONOCYTES 6.5 % (2-11); NEUTROPHILS 82.5 % (40-80); PLATELET COUNT 372 10x3/uL (130-400); RDW 14.4 % (11.5-14.5)
[2018-10-09 06:55] LABS: CALCIUM 7.3 mg/dL (8.5-10.1); CREATININE - SERUM 5.5 mg/dL (0.6-1.3); VANCOMYCIN - RANDOM 18.5 ug/mL (10.0-20.0)
[2018-10-09 09:39] VITALS: BP 118/54
[2018-10-09 11:45] VITALS: BP 150/54
[2018-10-09 19:00] VITALS: BP 153/59
[2018-10-10 01:14] VITALS: BP 130/57
[2018-10-10 05:25] VITALS: BP 137/67
[2018-10-10 06:06] LABS: ANION GAP 14.8 mmol/L (8-16); CALCIUM 7.3 mg/dL (8.5-10.1); CARBON DIOXIDE 24.9 mmol/L (21.0-32.0); CREATININE - SERUM 6.2 mg/dL (0.6-1.3); PHOSPHOROUS 4.2 mg/dL (2.5-4.9); POTASSIUM - SERUM 3.7 mmol/L (3.5-5.1); VANCOMYCIN - RANDOM 12.2 ug/mL (10.0-20.0)
[2018-10-10 07:38] LABS: RBC 2.38 10x6/uL (4.00-5.40); WBC 21.3 10x3/uL (4.8-10.8)
[2018-10-10 07:42] LABS: BASOPHILS 0.3 % (0-2); EOSINOPHILS 1.2 % (0-7); HEMATOCRIT 22.9 % (36.0-48.0); HEMOGLOBIN 7.4 g/dL (12-16); IMMATURE GRANULOCYTES 4.4 % (0-5); MCH 31.1 pg (26.0-34.0); MCHC 32.3 g/dL (31.0-37.0); MCV 96.2 fL (80.0-100.0); MEAN PLATELET VOLUME 9.7 fL (7.4-10.4); MONOCYTES 6.3 % (2-11); NEUTROPHILS 76.8 % (40-80); PLATELET COUNT 447 10x3/uL (130-400); RDW 14.8 % (11.5-14.5)
[2018-10-10 09:27] VITALS: BP 102/51
[2018-10-10 11:33] VITALS: BP 115/70
[2018-10-10 19:45] VITALS: BP 157/58
[2018-10-10 23:35] VITALS: BP 141/68
[2018-10-11 03:34] VITALS: BP 166/62
[2018-10-11 06:20] LABS: HEMATOCRIT 23.8 % (36.0-48.0); HEMOGLOBIN 7.8 g/dL (12-16); MCH 31.6 pg (26.0-34.0); MCHC 32.8 g/dL (31.0-37.0); MCV 96.4 fL (80.0-100.0); MEAN PLATELET VOLUME 9.6 fL (7.4-10.4); PLATELET COUNT 443 10x3/uL (130-400); RBC 2.47 10x6/uL (4.00-5.40); RDW 15.2 % (11.5-14.5); WBC 21.1 10x3/uL (4.8-10.8)
[2018-10-11 06:35] LABS: ANION GAP 14.1 mmol/L (8-16); CALCIUM 7.4 mg/dL (8.5-10.1); CARBON DIOXIDE 23.6 mmol/L (21.0-32.0); CREATININE - SERUM 5.9 mg/dL (0.6-1.3); PHOSPHOROUS 4.4 mg/dL (2.5-4.9); POTASSIUM - SERUM 3.7 mmol/L (3.5-5.1); VANCOMYCIN - RANDOM 22.7 ug/mL (10.0-20.0)
[2018-10-11 07:15] LABS: BASOPHILS 1 % (0-2); EOSINOPHILS 1 % (0-7); LYMPHOCYTES 12 % (15-50); MONOCYTES 16 % (2-11); NEUTROPHILS 66 % (40-80); PLATELET ESTIMATE INCREASED
[2018-10-11 07:16] LABS: ANISOCYTOSIS OCC; HYPOCHROMASIA OCC
[2018-10-11 08:22] VITALS: BP 171/52
[2018-10-11 11:39] VITALS: BP 160/65
[2018-10-11 15:30] VITALS: BP 170/60
[2018-10-11 19:45] VITALS: BP 141/57
[2018-10-11 23:45] VITALS: BP 127/51
[2018-10-12 03:55] VITALS: BP 155/51
[2018-10-12 05:09] LABS: BASOPHILS 0.2 % (0-2); EOSINOPHILS 1.4 % (0-7); HEMATOCRIT 21.7 % (36.0-48.0); IMMATURE GRANULOCYTES 3.1 % (0-5); LYMPHOCYTES 13.3 % (15-50); MCH 31.6 pg (26.0-34.0); MCHC 32.7 g/dL (31.0-37.0); MCV 96.4 fL (80.0-100.0); MEAN PLATELET VOLUME 9.4 fL (7.4-10.4); MONOCYTES 7.3 % (2-11); NEUTROPHILS 74.7 % (40-80); PLATELET COUNT 479 10x3/uL (130-400); RBC 2.25 10x6/uL (4.00-5.40); RDW 15.9 % (11.5-14.5); WBC 19.1 10x3/uL (4.8-10.8)
[2018-10-12 05:10] LABS: HEMOGLOBIN 7.1 g/dL (12-16)
[2018-10-12 05:25] LABS: CREATININE - SERUM 6.4 mg/dL (0.6-1.3); PHOSPHOROUS 4.1 mg/dL (2.5-4.9); VANCOMYCIN - RANDOM 21.3 ug/mL (10.0-20.0)
[2018-10-12 05:35] LABS: ANION GAP 16.7 mmol/L (8-16); POTASSIUM - SERUM 4.7 mmol/L (3.5-5.1)
[2018-10-12 05:39] LABS: CALCIUM 6.9 mg/dL (8.5-10.1)
[2018-10-12 08:35] VITALS: BP 148/52
[2018-10-12] MEDS ORDERED: NORVASC10 MG PO (10:59)
[2018-10-12 20:00] VITALS: BP 138/57
[2018-10-13 04:00] VITALS: BP 140/58
[2018-10-13 05:09] LABS: BASOPHILS 0.3 % (0-2); EOSINOPHILS 1.2 % (0-7); HEMATOCRIT 22.2 % (36.0-48.0); IMMATURE GRANULOCYTES 1.7 % (0-5); LYMPHOCYTES 11.7 % (15-50); MCH 31.5 pg (26.0-34.0); MCHC 32.9 g/dL (31.0-37.0); MCV 95.7 fL (80.0-100.0); MEAN PLATELET VOLUME 9.4 fL (7.4-10.4); MONOCYTES 6.4 % (2-11); NEUTROPHILS 78.7 % (40-80); PLATELET COUNT 416 10x3/uL (130-400); RBC 2.32 10x6/uL (4.00-5.40); RDW 15.7 % (11.5-14.5); WBC 17.2 10x3/uL (4.8-10.8)
[2018-10-13 05:15] LABS: HEMOGLOBIN 7.3 g/dL (12-16)
[2018-10-13 05:19] LABS: ANION GAP 14.1 mmol/L (8-16); CALCIUM 7.1 mg/dL (8.5-10.1); CARBON DIOXIDE 25.2 mmol/L (21.0-32.0); CREATININE - SERUM 5.6 mg/dL (0.6-1.3); PHOSPHOROUS 3.6 mg/dL (2.5-4.9); POTASSIUM - SERUM 4.3 mmol/L (3.5-5.1); VANCOMYCIN - RANDOM 18.8 ug/mL (10.0-20.0)
[2018-10-13 16:17] VITALS: BP 140/76
[2018-10-13 20:30] VITALS: BP 167/71
[2018-10-14 04:30] VITALS: BP 133/63
[2018-10-14 09:23] VITALS: BP 177/75
[2018-10-14 11:53] VITALS: BP 169/85
[2018-10-14 14:52] VITALS: BP 171/67
== END 2018-10-14 20:10 | disposition short-term general hospital (02) | DRG 239 ==
LOC: D.ER 16:26 → D.MS 19:34 → D.EDHOLD 19:34 → D.M2 19:34 → D.ICU 19:34 → D.MS 20:02 → D.ICU 10-01 18:29 → D.M2 10-03 17:42
PROVIDERS: Family Medicine; Internal Medicine; Internal Medicine Nephrology; Orthopaedic Surgery; Surgery
PROC: 0S9G3ZX Drainage of Left Ankle Joint, Percutaneous Approach, Diagnostic (ICD-10-PCS; 2018-10-02)
PROC: 0Y6H0Z3 Detachment at Right Lower Leg, Low, Open Approach (ICD-10-PCS; principal; 2018-10-02 15:00)
PROC: 05HM33Z Insertion of Infusion Device into Right Internal Jugular Vein, Percutaneous Approach (ICD-10-PCS; 2018-10-02 15:00)
PROC: 05PY33Z Removal of Infusion Device from Upper Vein, Percutaneous Approach (ICD-10-PCS; 2018-10-02 15:00)
DX: T82.7XXA Infection and inflammatory reaction due to other cardiac and vascular devices, implants and grafts, initial encounter (principal); A41.02 Sepsis due to Methicillin resistant Staphylococcus aureus; N18.6 End stage renal disease; J96.01 Acute respiratory failure with hypoxia; J11.00 Influenza due to unidentified influenza virus with unspecified type of pneumonia; I12.0 Hypertensive chronic kidney disease with stage 5 chronic kidney disease or end stage renal disease; E46 Unspecified protein-calorie malnutrition; E87.1 Hypo-osmolality and hyponatremia; E87.2 Acidosis; M86.8X7 Other osteomyelitis, ankle and foot; J44.1 Chronic obstructive pulmonary disease with (acute) exacerbation; J98.11 Atelectasis; J44.0 Chronic obstructive pulmonary disease with (acute) lower respiratory infection; M00.072 Staphylococcal arthritis, left ankle and foot; Z99.2 Dependence on renal dialysis; H54.8 Legal blindness, as defined in USA; D64.9 Anemia, unspecified; E11.21 Type 2 diabetes mellitus with diabetic nephropathy; E11.40 Type 2 diabetes mellitus with diabetic neuropathy, unspecified; Z68.20 Body mass index [BMI] 20.0-20.9, adult; K21.9 Gastro-esophageal reflux disease without esophagitis; R53.81 Other malaise; E83.39 Other disorders of phosphorus metabolism; I48.91 Unspecified atrial fibrillation; M25.471 Effusion, right ankle; E11.22 Type 2 diabetes mellitus with diabetic chronic kidney disease; B95.62 Methicillin resistant Staphylococcus aureus infection as the cause of diseases classified elsewhere; Z72.0 Tobacco use

== ENCOUNTER 2019-08-07 22:33 | Inpatient (IN) | payer MEDICARE ==
[~2019-08-07] VITALS: Ht 165.1 cm; Wt 50.5 kg
[2019-08-08 02:18] VITALS: BP 132/86; BMI 18.5
--- NOTE | 2019-08-08 02:56 | NUR ---
PT RECIEVED VIA STRETCHER FROM ER, A/OX4, VOICES NEEDS, RIGHT FOREARM PIV INTACT AND SALINE LOCKED, ASSESSMENT COMPLETED, PT BLIND, LISTENING TO TV WITH NO C/O
[2019-08-08 08:00] VITALS: BP 146/88
[2019-08-08 09:13] LABS: BASOPHILS 0.6 % (0-2); EOSINOPHILS 5.8 % (0-7); HEMOGLOBIN 10.8 g/dL (12-16); IMMATURE GRANULOCYTES 0.2 % (0-5); LYMPHOCYTES 32.2 % (15-50); MCH 30.8 pg (26.0-34.0); MCHC 32.7 g/dL (31.0-37.0); MEAN PLATELET VOLUME 9.6 fL (7.4-10.4); MONOCYTES 13.4 % (2-11); NEUTROPHILS 47.8 % (40-80); RBC 3.51 10x6/uL (4.00-5.40); RDW 17.2 % (11.5-14.5); WBC 4.8 10x3/uL (4.8-10.8)
[2019-08-08 09:16] LABS: PLATELET COUNT 294 10x3/uL (130-400)
[2019-08-08 09:23] LABS: ANION GAP 14.3 mmol/L (8-16); CALCIUM 8.6 mg/dL (8.5-10.1); CARBON DIOXIDE 28.1 mmol/L (21.0-32.0); CREATININE - SERUM 4.3 mg/dL (0.6-1.3); POTASSIUM - SERUM 4.4 mmol/L (3.5-5.1)
[2019-08-08 10:00] LABS: INR 1.07 (0.85-1.17); PROTIME 13.4 SECONDS (11.6-15.0)
[2019-08-08 12:00] VITALS: BP 132/80
[2019-08-08 13:06] VITALS: Ht 165.1 cm; Wt 50.5 kg
[2019-08-08 16:00] VITALS: BP 139/79
--- NOTE | 2019-08-08 17:52 | NUR ---
CALL PLACED TO [facility]ST[facility] MONTERROSO [facility]N FOR PAIN MEDICATIONS. AWAITING CALL BACK.
--- NOTE | 2019-08-08 17:59 | NUR ---
TRISTEN TO CALL BACK WITH NEW ORDRS.
--- NOTE | 2019-08-08 18:06 | NUR ---
WENT TO TAKE THE PATIENT AN ULTRAM AND SHE IS ON HER CELL PHONE. SHE STATES, "I DON'T TAKE ULTRAM, I TAKE HYDROCONE 10". I RETURNED THE ULTRAM AND PLACED CALL TO TRISTEN MONTERROSO AP[facility] AGAIN. 1807-TRISTEN TO CALL BACK WITH NEW ORDERS.
--- NOTE | 2019-08-12 15:54 | OP ---
PATIENT NAME: PRADEEP GONZALEZ MEDICAL RECORD: [id number] :[birth year] LOCATION:D. D.2102 ADMISSION DATE:08/08/19 SURGEON: GRACIE GOLDSTEIN MD DATE OF OPERATION: 08/08/2019 REFERRING PHYSICIAN: Lalito Sanchez MD PREOPERATIVE DIAGNOSES: End-stage renal disease, dependence on hemodialysis and displaced vascular dialysis catheter. POSTOPERATIVE DIAGNOSES: End-stage renal disease, dependence on hemodialysis and displaced vascular dialysis catheter. OPERATION PERFORMED: Ultrasound-guided insertion of a left common femoral tunneled 35 cm HemoSplit dialysis catheter. SURGEON: Gracie Goldstein MD ANESTHESIA: General with LMA per BIOTECHNOLOGIST. PREOPERATIVE NOTE: Ms. Gonzalez is a 53-year-old -[place] female who has had numerous prior dialysis catheters and pulled her most recent one out yesterday accidentally I suppose. She does not have a long-term access. She has had numerous numerous catheters. She is brought to the OR at this time to put in another one and I hope she will be able to have a long-term dialysis access procedure soon. Note, she has a history of MRSA infection. DESCRIPTION OF PROCEDURE: Under anesthesia in supine position, the patient was prepped and draped in a sterile manner. I examined the right internal jugular vein and the left internal jugular vein with the duplex ultrasound device and noted both internal jugular veins to be sclerotic and essentially unusable. I then examined the right common femoral vein with ultrasound and noted it to be somewhat fuzzy or blurred in appearance consistent with prior phlebitis. I examined the left common femoral vein and found it to be more suitable though at least it was fully compressible and had a sharper margin than on the right. I made a small incision over it and with continuous ultrasound guidance, I inserted a needle and a 0.018 guidewire. Hard copy ultrasound images were obtained for permanent record in the patient's chart. Catheter and wire exchanges were made and lastly a dilator peel-away introducer sheath was placed. I chose a 35 cm HemoSplit and brought it through an inferior stab incision through a subcutaneous tunnel up to the primary incision where it was then inserted through the peel-away sheath and that was removed. I positioned the catheter in the upper inferior vena cava. This required a little guidewire manipulation to get the catheter crossed the bifurcation or iliac vein confluence. Both lumens were then accessed and aspirated, free return of blood confirmed. They were flushed with saline and then heparin lock solution, clamped, and capped. Catheter was sutured to the skin with 2-0 Prolene. The skin incision in the groin closed with interrupted inverted 3-0 Vicryl and Dermabond glue and dressed with Maxorb Ag, Tegaderm, and Cavilon skin prep and a standard CVL dressing applied to the catheter at the exit site. The patient was awakened and taken to the recovery room. There was no blood loss of consequence during the procedure and all sponges, instruments, and needles were accounted for. No surgical specimen was submitted. OPERATIVE REPORT [id number] PRADEEP GONZALEZ PLAN: The patient can dialyze today or tomorrow. She, I think rather desperately needs a long-term dialysis access though it is not emergent. My operating schedule tomorrow was rather full. Rather than taking her back to the operating room tomorrow, I would prefer that she have bilateral upper extremity venograms and if possible either CT or MR imaging of the central veins or thoracic veins for evaluation of the best or most likely successful upper extremity dialysis access placement. She can go home then probably over the weekend. I will be gone out of town next week, but I will see her back in the office soon after I returned and after that she will be scheduled for a dialysis access procedure, hopefully, an upper extremity Artegraft. TRANSINT:[id number] Voice Confirmation ID: [id number] DOCUMENT ID: [id number] GRACIE GOLDSTEIN MD at 1554 CC: LALITO SANCHEZ [id number] DICTATION DATE: 08/08/19 1525 MILK POWDER GRINDER: 08/08/194 DIS IN 08/08/19 [facility] [address] [place] [address]
== END 2019-08-08 20:00 | disposition left against medical advice (07) | DRG 314 ==
LOC: D.ER 22:33 → D.M2 08-08 01:20
PROVIDERS: Surgery; ADMIT Internal Medicine Nephrology; ATTEND Internal Medicine Nephrology
PROC: B54CZZA Ultrasonography of Left Lower Extremity Veins, Guidance (ICD-10-PCS; 2019-08-08)
PROC: 06HN33Z Insertion of Infusion Device into Left Femoral Vein, Percutaneous Approach (ICD-10-PCS; principal; 2019-08-08 12:00)
DX: T82.42XA Displacement of vascular dialysis catheter, initial encounter (principal); N18.6 End stage renal disease; I12.0 Hypertensive chronic kidney disease with stage 5 chronic kidney disease or end stage renal disease; Y83.9 Surgical procedure, unspecified as the cause of abnormal reaction of the patient, or of later complication, without mention of misadventure at the time of the procedure; E11.22 Type 2 diabetes mellitus with diabetic chronic kidney disease; Z99.2 Dependence on renal dialysis; J43.9 Emphysema, unspecified; F17.210 Nicotine dependence, cigarettes, uncomplicated

== ENCOUNTER 2019-10-01 07:10 | Inpatient (IN) | payer MEDICARE ==
[~2019-10-01] VITALS: Ht 160 cm; Wt 54.0 kg
[2019-10-01 08:05] LABS: BASOPHILS 1.2 % (0-2); EOSINOPHILS 8.9 % (0-7); HEMATOCRIT 38.3 % (36.0-48.0); HEMOGLOBIN 12.4 g/dL (12-16); IMMATURE GRANULOCYTES 0.2 % (0-5); LYMPHOCYTES 31.9 % (15-50); MCH 32.3 pg (26.0-34.0); MCHC 32.4 g/dL (31.0-37.0); MCV 99.7 fL (80.0-100.0); MEAN PLATELET VOLUME 10.1 fL (7.4-10.4); MONOCYTES 10.6 % (2-11); NEUTROPHILS 47.2 % (40-80); PLATELET COUNT 270 10x3/uL (130-400); RBC 3.84 10x6/uL (4.00-5.40); RDW 15.6 % (11.5-14.5); WBC 4.3 10x3/uL (4.8-10.8)
[2019-10-01 08:11] LABS: INR 0.99 (0.85-1.17); PROTIME 12.6 SECONDS (11.6-15.0)
[2019-10-01 08:12] LABS: ANION GAP 13.5 mmol/L (8-16); CALCIUM 8.2 mg/dL (8.5-10.1); CREATININE - SERUM 6.4 mg/dL (0.6-1.3); POTASSIUM - SERUM 4.5 mmol/L (3.5-5.1)
[2019-10-01] MEDS ORDERED: NEURONTIN 300300 MG PO (08:24)
[2019-10-01] MEDS ORDERED: TOPROL XL100 MG PO (08:24)
[2019-10-01] MEDS ORDERED: EFFEXOR XR150 MG PO (08:25)
[2019-10-01] MEDS ORDERED: ISOSORBIDE MONO60 M1 PO (08:26)
[2019-10-01] MEDS ORDERED: ACETAMINOPHEN500 M1 PO (08:27)
[2019-10-01] MEDS ORDERED: ELAVIL10 MG PO (08:28)
[2019-10-01] MEDS ORDERED: SEROQUEL50 MG PO (08:28)
[2019-10-01 08:31] VITALS: BP 98/71; BMI 21.1
[2019-10-01] MEDS ORDERED: ULTRAM50 MG PO (14:08)
[2019-10-01 14:51] VITALS: BP 118/60
--- NOTE | 2019-10-01 15:00 | NUR ---
EKG PRESENTS WITH VTACH AND QUICKLY CONVERTED TO NORMAL SINUS RHYTHEM WITHIN 15 SECONDS. ANGELITA AND JOSE ANGEL NOTIFIED. 12 LEAD EKG OBTAINED. ORDERS FOR CMP,CBC, MAG LEVELS DRAWN. TELEMETRY AND HEART CONSULT OBTAINED. NO FURTHER ORDERS RECEIVED.
--- NOTE | 2019-10-01 15:08 | NUR ---
PT TO ROOM FROM PACU ON BED. FAMILY AT BEDSIDE. VITALS STABLE AT PRESENT BUT PT WTIH EPISODE OF VTACH IN RECOVERY. AV FISTULA TO RIGHT ARM NOTED, THRILL AND BRUIT PRESENT. PT IS BLIND BUT ALERT AND ORIENTED. PENDING CARDIAC CONSULT.
[2019-10-01 15:42] VITALS: BP 118/60
[2019-10-01 16:00] VITALS: BP 111/59
--- NOTE | 2019-10-01 19:03 | NUR ---
AWAKE IN BED CO ALOT OF PAIN MOSTLY PHANTOM PAIN BED LOW AND LOCKED CALL LIGHT IS WITH PT SR IS ON MONITOR AT THIS TIME...PT DENIES OTHER NEEDS
[2019-10-01 19:37] LABS: HEMATOCRIT 34.2 % (36.0-48.0); HEMOGLOBIN 10.9 g/dL (12-16); MCHC 31.9 g/dL (31.0-37.0); MCV 100.3 fL (80.0-100.0); PLATELET COUNT 233 10x3/uL (130-400); RBC 3.41 10x6/uL (4.00-5.40); RDW 15.6 % (11.5-14.5)
[2019-10-01 19:45] LABS: ANION GAP 15.9 mmol/L (8-16); CARBON DIOXIDE 22.8 mmol/L (21.0-32.0); CREATININE - SERUM 6.3 mg/dL (0.6-1.3); POTASSIUM - SERUM 4.7 mmol/L (3.5-5.1)
[2019-10-01 19:51] LABS: ALBUMIN 2.8 g/dL (3.4-5.0); BILIRUBIN - TOTAL 0.24 mg/dL (0.2-1.3); MAGNESIUM - SERUM 1.7 mg/dL (1.8-2.4); PROTEIN - SERUM 6.2 g/dL (6.4-8.2)
[2019-10-01 19:57] LABS: WBC 6.8 10x3/uL (4.8-10.8)
[2019-10-01 20:49] LABS: BASOPHILS 1 % (0-2); EOSINOPHILS 1 % (0-7); LYMPHOCYTES 29 % (15-50); MONOCYTES 2 % (2-11); NEUTROPHILS 67 % (40-80); PLATELET ESTIMATE NORMAL
--- NOTE | 2019-10-01 22:04 | NUR ---
TECH REPORTED TO ME THAT PT HAD A LOW BP I RESPONDED IMEDIATE I WAS OUT SIDE THE ROOM AND FOUND PT ONLY BRIEFLY RESPONSIVE TO A STERNAL RUB AND AGINOL BREATHING RAPID WAS CALLED IMEEDIATELY AND SUBSIQUENT FINDINGS OF SPO2 79% AND GLUCOSE OF 114. NARCAN AND BIPAP USED DURING RAPID AND BP AND SPO2 IMPROVED.
--- NOTE | 2019-10-01 23:00 | NUR ---
2300 PT WAS TRANSFERED TO ICU YOU AT THIS TIME I GAVE REPORT TO ICU CHARGE THAT WAS RUNNING RAPID AND ASSISTED TRANSPORT.
--- NOTE | 2019-10-01 23:16 | NUR ---
PT ARRIVED TO ICU ACCOMPANIED BY NURSING STAFF POST RAPID RESPONSE, SEE RAPID RESPONSE. WHEN TRANSFERRING, PT MUMBLED AND BRIEFLY WOKE UP FOR A FEW SECONDS AT A TIME, THEN WOULD FALL ASLEEP REQUIRING DEEP STIMULATION TO AROUSE AGAIN. PT PLACED ON BIPAP. WILL CONTINUE PLAN OF CARE.
--- NOTE | 2019-10-01 23:45 | NUR ---
DR. LAURA POWELL.
[2019-10-02] VITALS (11 sets, daily range): BP systolic 82–140; BP diastolic 50–98; Ht 160 cm; Wt 54.0 kg
--- NOTE | 2019-10-02 00:13 | NUR ---
DR. SANCHEZ RETURNED PAGED, STATUS REPORT GIVEN AND NEW ORDERS REC'D.
--- NOTE | 2019-10-02 01:00 | NUR ---
PT AROUSES TO LIGHT STIMULI, BUT QUICKLY DRIFTS OFF AGAIN. WILL CONTINUE TO MONITOR.
--- NOTE | 2019-10-02 03:00 | NUR ---
PT DISORIENTED TO TIME AND SITUATION. ANSWERING QUESTIONS AT THIS TIME, AWAKE AND ALERT. WILL CONTINUE TO MONITOR.
--- NOTE | 2019-10-02 05:00 | NUR ---
PT CONFUSED TO SITUATION AND TIME. BRIEFLY WAKES UP, THEN FALLS BACK ASLEEP SHORTLY AFTER. AROUSES TO LIGHT STIMULI. NO ACUTE DISTRESS NOTED AT THIS TIME.
[2019-10-02 05:10] LABS: BASOPHILS 0.3 % (0-2); EOSINOPHILS 4.8 % (0-7); HEMATOCRIT 32.1 % (36.0-48.0); HEMOGLOBIN 10.2 g/dL (12-16); IMMATURE GRANULOCYTES 0.2 % (0-5); LYMPHOCYTES 23.6 % (15-50); MCHC 31.8 g/dL (31.0-37.0); MCV 100.6 fL (80.0-100.0); MEAN PLATELET VOLUME 9.8 fL (7.4-10.4); MONOCYTES 9.5 % (2-11); NEUTROPHILS 61.6 % (40-80); PLATELET COUNT 211 10x3/uL (130-400); RBC 3.19 10x6/uL (4.00-5.40); RDW 15.7 % (11.5-14.5); WBC 6.5 10x3/uL (4.8-10.8)
[2019-10-02 05:27] LABS: ANION GAP 11.9 mmol/L (8-16); CARBON DIOXIDE 25.5 mmol/L (21.0-32.0); CREATININE - SERUM 6.7 mg/dL (0.6-1.3); POTASSIUM - SERUM 4.4 mmol/L (3.5-5.1)
--- NOTE | 2019-10-02 08:23 | MORECARE ---
CASE MANAGEMENT DISCHARGE SUMMARY PATIENT: PRADEEP DUBON UNIT: [id number] ADM DATE: 10/01/19 AGE: 54 : 61 SEX: F ROOM/BED: D.2311 AUTHOR: VICTOR MANUEL BAZAN PHYSICIAN: REFERRING PHYSICIAN: SANDEE SANCHEZ MD DATE OF SERVICE: 10/02/19 Discharge Plan Patient Name: PRADEEP DUBON Facility: [facility]:[place] : 1965 Planned Disposition: Home Anticipated Discharge Date: Discharge Date: Expected LOS: 0 Initial Reviewer: [email or web address] Initial Review Date: 10/01/2019 Generated: 10/02/19 9:22 am DCPIA - Discharge Planning Initial Assessment Updated by [email or web address]: Kin Newman on 10/02/19 8:22 am * Is the patient Alert and Oriented? Yes * How many steps to enter\exit or inside your home? NONE * PCP DR. DAYSI WEEKS * Pharmacy [facility] IN [place] * Preadmission Environment Home with Family * ADLs Independent * Equipment Cane * Other Equipment NO MEDICAL EQUIPMENT PROVIDER PREFERENCE * List name and contact numbers for known caregivers / representatives who currently or will assist patient after discharge: SIM MELARA, DTR, MICHAEL ORTA, SISTER, * Verbal permission to speak to the caregivers and representatives has been obtained from the patient. N/A * Community resources currently utilized Other Private Duty Care * Please name any agencies selected above. OUTPATIENT DIALYSIS, [place], [facility], [address], [facility] MEDICAID TRANSPORTATION DAUGHTGER IS PAID CAREGIVER THROUGH [facility], M-F, 2 HOURS PER DAY * Additional services required to return to the preadmission environment? No * Can the patient safely return to the preadmission environment? Yes * Has this patient been hospitalized within the prior 30 days at any hospital? No Patient Name: PRADEEP DUBON Page 20072 at 0823 All edits/amendments must be made on the electronic document DICTATION DATE: 10/02/19821 SUPERVISING DEPUTY: LISA 10/02/19821 RPT#: [id number] DC DATE: STATUS: REG [facility] [address] [place] [address] END OF REPORT
--- NOTE | 2019-10-02 08:30 | MORECARE ---
CASE MANAGEMENT DISCHARGE SUMMARY PATIENT: PRADEEP DUBON UNIT: [id number] ADM DATE: 10/01/19 AGE: 54 : 61 SEX: F ROOM/BED: D.2311 AUTHOR: HORTENSIA,DOC PHYSICIAN: REFERRING PHYSICIAN: SANDEE SANCHEZ MD DATE OF SERVICE: 10/02/19 Discharge Plan Patient Name: PRADEEP DUBON Facility: [facility]:[place] : 1965 Planned Disposition: Home Anticipated Discharge Date: Discharge Date: Expected LOS: 0 Initial Reviewer: [email or web address] Initial Review Date: 10/01/2019 Generated: 10/02/19 9:30 am Comments DCP- Discharge Planning Updated by [email or web address]: Kin Newman on 10/02/19 7:[address] Patient Name: PRADEEP DUBON Admission Status: Elective Accout number: [id number] Admission Date: 10-01-2019 : 1965 Admission Diagnosis: Attending: SANDEE SANCHEZ Current LOS: 1 Anticipated DC Date: Planned Disposition: Home Primary Insurance: MEDICARE A & B Discharge Planning Comments: LATE ENTRY FROM 10-01-19, 1645 HOURS: CM RECEIVED ORDER FOR IN VS OUT, TRANSPORTATION TO DIALYSIS AND TRANSPORTATION HOME. CM MET WITH PT IN ROOM TO DISCUSS DISCHARGE PLANNING AND NEEDS. PT REPORTS LIVING AT HOME INDEPENDENTLY WITH HER ADULT DAUGHTER AND SISTER. PT HAS A CANE WITH NO MEDICAL EQUIPMENT PROVIDER PREFERENCE. PT HAS PERSONAL CARE THROUGH MEDICAID; [facility] [place] CARE PAYS PT'S DAUGHTER FOR CAREGIVING, MONDAY THRU MONDAY, 2 HOURS PER DAY. PT GOES TO DIALYSIS IN [facility], [facility], [place] TRANSPORTATION BUS. CM DISCUSSED AVAILABILITY OF HOME HEALTH, REHAB SERVICES AND MEDICAL EQUIPMENT. PT STATES SHE PLANS TO CONTINUE GOING TO THE [facility] WHERE SHE HAS BEEN DOING OUTPATIENT THERAPY. PT STATES IF SHE NEEDS HALF-WAY REHAB, SHE WANTS [facility]. PT PLANS TO RETURN HOME, DENIES DISCHARGE NEEDS, REPORTS HER DAUGHTER WILL PICK HER UP FOR DISCHARGE HOME. PT STATES HAVING MEDICAID BUS SET UP FOR DIALYSIS TRANSPORTATION FROM HOME. PT PLANS TO DISCHARGE HOME WITH FAMILY, DAUGHTER TO TRANSPORT HOME. PT HAS NO ANTICIPATED DISCHARGE NEEDS AT TIME OF ASSESSMENT. Deckhand Sponge Boat: Kin Newman DCPIA - Discharge Planning Initial Assessment Updated by [id number]: Kin Newman on 10/02/19 8:22 am * Is the patient Alert and Oriented? Yes * How many steps to enter\exit or inside your home? NONE * PCP DR. DAYSI WEEKS * Pharmacy [facility] IN [place] * Preadmission Environment Home with Family * ADLs Independent * Equipment Cane * Other Equipment NO MEDICAL EQUIPMENT PROVIDER PREFERENCE * List name and contact numbers for known caregivers / representatives who currently or will assist patient after discharge: SIM MELARA, DTR, MICHAEL ORTA, SISTER, * Verbal permission to speak to the caregivers and representatives has been obtained from the patient. N/A * Community resources currently utilized Other Private Duty Care * Please name any agencies selected above. OUTPATIENT DIALYSIS, [place], [facility], [address], [place] MEDICAID TRANSPORTATION DAUGHTGER IS PAID CAREGIVER THROUGH [employer], 2 HOURS PER DAY * Additional services required to return to the preadmission environment? No * Can the patient safely return to the preadmission environment? Yes * Has this patient been hospitalized within the prior 30 days at any hospital? No Last DP export: 10/02/19 7:23 Patient Name: PRADEEP DUBON Page 14190 at 0830 All edits/amendments must be made on the electronic document DICTATION DATE: 10/02/19829 ASSOCIATE PROGRAMMER ANALYST: LISA 10/02/19829 RPT#: [id number] DC DATE: STATUS: REG [facility] [address] [place] [address] END OF REPORT
--- NOTE | 2019-10-02 11:25 | NUR ---
report given to arin
--- NOTE | 2019-10-02 11:37 | NUR ---
PATIENT ARRIVED FROM ICU. SHE IS SITTING UP IN THE BED AND IS ALERT AND AWAKE. SHE IS REQUESTING TO SEE THE CASE MANAGEMENT SOON SHE CAN. SHE WANTS TO DISCUSS DISCHARGE AND REHABILITATION. HER CHOICE IS [place]. SHE WANTS TO GO TO [place] FOR 20 DAYS TO LEARN TO WALK WITH HER ARTIFICIAL LEG.
--- NOTE | 2019-10-02 13:54 | NUR ---
PATIENT IS ALERT AND ORIENTED. SHE IS SITTING UP IN BED. SHE IS BLIND AND A RIGHT ARM RESERVE. THERE ARE SIGNS ON THE DOOR AND ABOVE THE BED. SHE CAN FEED HERSELF WITH MINIMAL ASSIST OF SET UP.
--- NOTE | 2019-10-02 16:00 | NUR ---
PATIENT HAS HAD A SHOWER, AND SHE IS ABOUT TO GO DOWN TO DIALYSIS.
--- NOTE | 2019-10-02 16:43 | NUR ---
PATIENT IS IN DIALYSIS
--- NOTE | 2019-10-02 18:36 | NUR ---
ABOUT TO RETURN FROM DIALYSIS
--- NOTE | 2019-10-03 03:48 | NUR ---
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 She states she scratches her skin in her sleep sometimes and she woke up and the dressing was in the bed. Incision is clean and dry and there is no redness or swelling. Thrill and bruit present. Placed a non adherent dressing over fistula incision and covered with a tegaderm.
[2019-10-03 04:00] VITALS: BP 103/62
[2019-10-03 08:00] VITALS: BP 115/60
--- NOTE | 2019-10-03 08:06 | NUR ---
PT RESTING. COFFEE RECIEVED PER REQUEST. DENIES FURTHER NEEDS OR PAIN AT THIS TIME. BED IN LOWEST POSITION. CALL LIGHT WITHIN REACH. JOHNNIE CONTINUE TO MONITOR.
[2019-10-03 12:00] VITALS: BP 118/64
--- NOTE | 2019-10-03 14:53 | NUR ---
PT TO DIALYSIS PER BED
--- NOTE | 2019-10-03 16:04 | MORECARE ---
CASE MANAGEMENT DISCHARGE SUMMARY PATIENT: PRADEEP DUBON UNIT: [id number] ADM DATE: 10/02/19 AGE: 54 : 61 SEX: F ROOM/BED: D.2722 AUTHOR: HORTENSIADOC PHYSICIAN: REFERRING PHYSICIAN: SANDEE SANCHEZ MD DATE OF SERVICE: 10/03/19 Discharge Plan Patient Name: PRADEEP DUBON Facility: [facility]:[place] : 1965 Planned Disposition: [facility] Facility Anticipated Discharge Date: 10/05/19 Discharge Date: Expected LOS: 3 Initial Reviewer: [email or web address] Initial Review Date: 10/01/2019 Generated: 10/03/19 5:04 pm DCP- Discharge Planning Updated by [email or web address]: Kin Newman on 10/02/19 7:[address] Patient Name: PRADEEP DUBON Admission Status: Elective Accout number: [id number] Admission Date: 10-01-2019 : 1965 Admission Diagnosis: Attending: SANDEE SANCHEZ Current LOS: 1 Anticipated DC Date: Planned Disposition: Home Primary Insurance: MEDICARE A & B Discharge Planning Comments: LATE ENTRY FROM 10-01-19, 1645 HOURS: CM RECEIVED ORDER FOR IN VS OUT, TRANSPORTATION TO DIALYSIS AND TRANSPORTATION HOME. CM MET WITH PT IN ROOM TO DISCUSS DISCHARGE PLANNING AND NEEDS. PT REPORTS LIVING AT HOME INDEPENDENTLY WITH HER ADULT DAUGHTER AND SISTER. PT HAS A CANE WITH NO MEDICAL EQUIPMENT PROVIDER PREFERENCE. PT HAS PERSONAL CARE THROUGH MEDICAID; [employer] [facility] PAYS PT'S DAUGHTER FOR CAREGIVING, MONDAY THRU MONDAY, 2 HOURS PER DAY. PT GOES TO DIALYSIS IN [place], [facility], [address], [place] MED[place] TRANSPORTATION BUS. CM DISCUSSED AVAILABILITY OF HOME HEALTH, REHAB SERVICES AND MEDICAL EQUIPMENT. PT STATES SHE PLANS TO CONTINUE GOING TO THE [facility] WHERE SHE HAS BEEN DOING OUTPATIENT THERAPY. PT STATES IF SHE NEEDS SENIOR CARE REHAB, SHE WANTS [facility]. PT PLANS TO RETURN HOME, DENIES DISCHARGE NEEDS, REPORTS HER DAUGHTER WILL PICK HER UP FOR DISCHARGE HOME. PT STATES HAVING MEDICAID BUS SET UP FOR DIALYSIS TRANSPORTATION FROM HOME. PT PLANS TO DISCHARGE HOME WITH FAMILY, DAUGHTER TO TRANSPORT HOME. PT HAS NO ANTICIPATED DISCHARGE NEEDS AT TIME OF ASSESSMENT. Check Examiner: Kin Newman DCPIA - Discharge Planning Initial Assessment Updated by [email or web address]: Kin Newman on 10/02/19 8:22 am * Is the patient Alert and Oriented? Yes * How many steps to enter\exit or inside your home? NONE * PCP DR. DAYSI WEEKS * Pharmacy [facility] IN [place] * Preadmission Environment Home with Family * ADLs Independent * Equipment Cane * Other Equipment NO MEDICAL EQUIPMENT PROVIDER PREFERENCE * List name and contact numbers for known caregivers / representatives who currently or will assist patient after discharge: SIM MELARA, DTR, MICHAEL SHERELIZABETHLILA, SISTER, * Verbal permission to speak to the caregivers and representatives has been obtained from the patient. N/A * Community resources currently utilized Other Private Duty Care * Please name any agencies selected above. OUTPATIENT DIALYSIS, [place], [facility], [address], [place] MEDICAID TRANSPORTATION DAUGHTGER IS PAID CAREGIVER THROUGH [employer], [employer], 2 HOURS PER DAY * Additional services required to return to the preadmission environment? No * Can the patient safely return to the preadmission environment? Yes * Has this patient been hospitalized within the prior 30 days at any hospital? No Last DP export: 10/02/19 7:30 Patient Name: PRADEEP DUBON Page 33875 at 1604 All edits/amendments must be made on the electronic document DICTATION DATE: 10/03/191603 PATIENT NAVIGATOR: LISA 10/03/191603 RPT#: [id number] DC DATE: STATUS: ADM IN [facility] [address] [place] [address] END OF REPORT
--- NOTE | 2019-10-03 16:25 | MORECARE ---
CASE MANAGEMENT DISCHARGE SUMMARY PATIENT: PRADEEP DUBON UNIT: [id number] ADM DATE: 10/02/19 AGE: 54 : 61 SEX: F ROOM/BED: D.4417 AUTHOR: HORTENSIADOC PHYSICIAN: REFERRING PHYSICIAN: SANDEE SANCHEZ MD DATE OF SERVICE: 10/03/19 Discharge Plan Patient Name: PRADEEP DUBON Facility: [facility]:[place] : 1965 Planned Disposition: Group Home Facility Anticipated Discharge Date: 10/05/19 Discharge Date: Expected LOS: 3 Initial Reviewer: [email or web address] Initial Review Date: 10/01/2019 Generated: 10/03/19 5:25 pm DCP- Discharge Planning Updated by [email or web address]: Kin Newman on 10/02/19 7:[address] Patient Name: PRADEEP DUBON Admission Status: Elective Accout number: [id number] Admission Date: 10-01-2019 : 1965 Admission Diagnosis: Attending: SANDEE SANCHEZ Current LOS: 1 Anticipated DC Date: Planned Disposition: Home Primary Insurance: MEDICARE A & B Discharge Planning Comments: LATE ENTRY FROM 10-01-19, 1645 HOURS: CM RECEIVED ORDER FOR IN VS OUT, TRANSPORTATION TO DIALYSIS AND TRANSPORTATION HOME. CM MET WITH PT IN ROOM TO DISCUSS DISCHARGE PLANNING AND NEEDS. PT REPORTS LIVING AT HOME INDEPENDENTLY WITH HER ADULT DAUGHTER AND SISTER. PT HAS A CANE WITH NO MEDICAL EQUIPMENT PROVIDER PREFERENCE. PT HAS PERSONAL CARE THROUGH MEDICAID; [employer] C[facility] PAYS PT'S DAUGHTER FOR CAREGIVING, MONDAY THRU MONDAY, 2 HOURS PER DAY. PT GOES TO DIALYSIS IN [place], [facility], [address], [place] MEDICAID TRANSPORTATION BUS. CM DISCUSSED AVAILABILITY OF HOME HEALTH, REHAB SERVICES AND MEDICAL EQUIPMENT. PT STATES SHE PLANS TO CONTINUE GOING TO THE [facility] WHERE SHE HAS BEEN DOING OUTPATIENT THERAPY. PT STATES IF SHE NEEDS GROUP HOME REHAB, SHE WANTS [facility]. PT PLANS TO RETURN HOME, DENIES DISCHARGE NEEDS, REPORTS HER DAUGHTER WILL PICK HER UP FOR DISCHARGE HOME. PT STATES HAVING MEDICAID BUS SET UP FOR DIALYSIS TRANSPORTATION FROM HOME. PT PLANS TO DISCHARGE HOME WITH FAMILY, DAUGHTER TO TRANSPORT HOME. PT HAS NO ANTICIPATED DISCHARGE NEEDS AT TIME OF ASSESSMENT. Interior Assemblies Installer: Kin Newman DCPIA - Discharge Planning Initial Assessment Updated by [id number]: Kin Newman on 10/02/19 8:22 am * Is the patient Alert and Oriented? Yes * How many steps to enter\exit or inside your home? NONE * PCP DR. DAYSI WEEKS * Pharmacy [facility] IN [place] * Preadmission Environment Home with Family * ADLs Independent * Equipment Cane * Other Equipment NO MEDICAL EQUIPMENT PROVIDER PREFERENCE * List name and contact numbers for known caregivers / representatives who currently or will assist patient after discharge: SIM MELARA, DTR, MICHAEL ORTA, SISTER, * Verbal permission to speak to the caregivers and representatives has been obtained from the patient. N/A * Community resources currently utilized Other Private Duty Care * Please name any agencies selected above. OUTPATIENT DIALYSIS, [place], [place], [address], [place] MEDICAID TRANSPORTATION DAUGHTGER IS PAID CAREGIVER THROUGH [employer], [employer], 2 HOURS PER DAY * Additional services required to return to the preadmission environment? No * Can the patient safely return to the preadmission environment? Yes * Has this patient been hospitalized within the prior 30 days at any hospital? No External Providers External Provider: [facility] and [facility] Next Contact Date: 10/03/2019 Service Request Date: Service Type: Resolution: Reviewer: Comments: Last DP export: 10/03/19 3:04 Patient Name: PRADEEP DUBON Page 25390 at 1625 All edits/amendments must be made on the electronic document DICTATION DATE: 10/03/191624 SALES BROKER: LISA 10/03/191624 RPT#: [id number] DC DATE: STATUS: ADM IN [facility] [address] [place] [address] END OF REPORT
--- NOTE | 2019-10-03 16:34 | MORECARE ---
CASE MANAGEMENT DISCHARGE SUMMARY PATIENT: PRADEEP DUBON UNIT: [id number] ADM DATE: 10/02/19 AGE: 54 : 61 SEX: F ROOM/BED: D.7061 AUTHOR: HORTENSIA,DOC PHYSICIAN: REFERRING PHYSICIAN: SANDEE SANCHEZ MD DATE OF SERVICE: 10/03/19 Discharge Plan Patient Name: PRADEEP DUBON Facility: [facility]:[place] : 1965 Planned Disposition: [facility]pc Facility Anticipated Discharge Date: 10/05/19 Discharge Date: Expected LOS: 3 Initial Reviewer: [email or web address] Initial Review Date: 10/01/2019 Generated: 10/03/19 5:33 pm Comments DCP- Discharge Planning Updated by [email or web address]: Kin Newman on 10/03/19 3:[address] Patient Name: PRADEEP DUBON Encounter No: [id number] : 1965 Primary Insurance: MEDICARE A & B Anticipated DC Date: 10-05-2019 Planned Disposition: [facility]pc Facility External Planned Provider: [facility] REHAB BED DCP follow-up note: CM RECEIVED ORDER FOR [facility] PLACEMENT. CM MET WITH PT IN ROOM, PT WANTS REHAB AT [facility] SHE HAS BEEN THERE BEFORE. CHOICE SIGNED. PT STATES SHE HAS A NEW PROSTHETHIC LEG AT HOME AND NEEDS REHAB TO BE ABLE TO WALK ON IT. CM ADVISED THAT FAMILY NEEDS TO BRING THE LEG HERE FOR THERAPY TO EVALUATE AND WORK WITH HER AND THE NEW LEG. ORDER FOR PHYSICAL THERAPY EVALUATION OBTAINED. CM FAXED REFERRAL INFORMATION TO [facility] AT [phone]; CM CALLED [facility] AT [facility], . WHO WILL EVALUATE PT FOR ADMISSION . CM TO FAX PHYSICAL THERAPY EVALUATION TO [facility] AND IS WAITING FOR ADMISSION DETERMINATION FROM [facility] FOR REHAB SERVICES. NOELLE Strauss DCP- Discharge Planning Updated by [email or web address]: Kin Newman on 10/02/19 7:[address] Patient Name: PRADEEP DUBON Admission Status: Elective Accout number: [id number] Admission Date: 10-01-2019 : 1965 Admission Diagnosis: Attending: SANDEE SANCHEZ Current LOS: 1 Anticipated DC Date: Planned Disposition: Home Primary Insurance: MEDICARE A & B Discharge Planning Comments: LATE ENTRY FROM 10-01-19, 1645 HOURS: CM RECEIVED ORDER FOR IN VS OUT, TRANSPORTATION TO DIALYSIS AND TRANSPORTATION HOME. CM MET WITH PT IN ROOM TO DISCUSS DISCHARGE PLANNING AND NEEDS. PT REPORTS LIVING AT HOME INDEPENDENTLY WITH HER ADULT DAUGHTER AND SISTER. PT HAS A CANE WITH NO MEDICAL EQUIPMENT PROVIDER PREFERENCE. PT HAS PERSONAL CARE THROUGH MEDICAID; [employer] PAYS PT'S DAUGHTER FOR CAREGIVING, MONDAY THRU MONDAY, 2 HOURS PER DAY. PT GOES TO DIALYSIS IN [place], [facility], [address], [place] MEDICAID TRANSPORTATION BUS. CM DISCUSSED AVAILABILITY OF HOME HEALTH, REHAB SERVICES AND MEDICAL EQUIPMENT. PT STATES SHE PLANS TO CONTINUE GOING TO THE [facility] WHERE SHE HAS BEEN DOING OUTPATIENT THERAPY. PT STATES IF SHE NEEDS [facility] REH[facility], SHE WANTS [facility]. PT PLANS TO RETURN HOME, DENIES DISCHARGE NEEDS, REPORTS HER DAUGHTER WILL PICK HER UP FOR DISCHARGE HOME. PT STATES HAVING MEDICAID BUS SET UP FOR DIALYSIS TRANSPORTATION FROM HOME. PT PLANS TO DISCHARGE HOME WITH FAMILY, DAUGHTER TO TRANSPORT HOME. PT HAS NO ANTICIPATED DISCHARGE NEEDS AT TIME OF ASSESSMENT. Tobacco Weigher: Kin Newman DCPIA - Discharge Planning Initial Assessment Updated by [email or web address]: Kin Newman on 10/02/19 8:22 am * Is the patient Alert and Oriented? Yes * How many steps to enter\exit or inside your home? NONE * PCP DR. DAYSI WEEKS * Pharmacy [facility] IN [place] * Preadmission Environment Home with Family * ADLs Independent * Equipment Cane * Other Equipment NO MEDICAL EQUIPMENT PROVIDER PREFERENCE * List name and contact numbers for known caregivers / representatives who currently or will assist patient after discharge: SIM MELARA, DTR, MICHAEL ORTA, SISTER, * Verbal permission to speak to the caregivers and representatives has been obtained from the patient. N/A * Community resources currently utilized Other Private Duty Care * Please name any agencies selected above. OUTPATIENT DIALYSIS, [place], [facility], [address], [place] MEDICAID TRANSPORTATION DAUGHTGER IS PAID CAREGIVER THROUGH [employer], M-F, 2 HOURS PER DAY * Additional services required to return to the preadmission environment? No * Can the patient safely return to the preadmission environment? Yes * Has this patient been hospitalized within the prior 30 days at any hospital? No Coverage Notice Reviewer: [email or web address] Sarahi Newman Notice Issued Date-Time: 10/03/2019 11:30 Notice Type: Patient Choice Letter Notice Delivered To: Patient Relationship to Patient: Webbing Supervisor Name: Delivery Method: HAND - Hand Delivered Kaia Days: Prior Verbal Notification: Recipient Understood Notice: Yes Recipient Signature: Yes Med Rec Note Co-signed by Attending: Coverage Notice Comment: CHUY Khalil DP export: 10/03/19 3:25 Patient Name: PRADEEP DUBON Page 39628 at 1634 All edits/amendments must be made on the electronic document DICTATION DATE: 10/03/191632 SOCIAL SERVICES ASSISTANT: LISA 10/03/191632 RPT#: [id number] DC DATE: STATUS: ADM IN [facility] [address] [place] [address] END OF REPORT
--- NOTE | 2019-10-03 19:14 | NUR ---
i agree witht he assessment made by the skate hop on staff
[2019-10-03 20:00] VITALS: BP 125/64
[2019-10-04] VITALS (7 sets, daily range): BP systolic 109–144; BP diastolic 56–70
[2019-10-04 07:08] LABS: ALBUMIN 2.7 g/dL (3.4-5.0); ANION GAP 11.8 mmol/L (8-16); BILIRUBIN - TOTAL 0.22 mg/dL (0.2-1.3); CALCIUM 8.2 mg/dL (8.5-10.1); CARBON DIOXIDE 26.7 mmol/L (21.0-32.0); PHOSPHOROUS 4.5 mg/dL (2.5-4.9); POTASSIUM - SERUM 4.5 mmol/L (3.5-5.1); PROTEIN - SERUM 6.4 g/dL (6.4-8.2)
[2019-10-04 07:26] LABS: HEMATOCRIT 31.3 % (36.0-48.0); HEMOGLOBIN 10.5 g/dL (12-16); LYMPHOCYTES 39.2 % (15-50); MCH 32.8 pg (26.0-34.0); MCHC 33.5 g/dL (31.0-37.0); MCV 97.8 fL (80.0-100.0); NEUTROPHILS 47.2 % (40-80); RDW 15.2 % (11.5-14.5); WBC 4.8 10x3/uL (4.8-10.8)
[2019-10-04 07:27] LABS: PLATELET COUNT 139 10x3/uL (130-400)
[2019-10-04 08:11] LABS: HEPATITIS C ANTIBODY 0.1 S/CO RAT (0.0-0.9)
--- NOTE | 2019-10-04 08:24 | NUR ---
ASSESSMENT DONE. DENIES NEEDS
--- NOTE | 2019-10-04 16:51 | MORECARE ---
CASE MANAGEMENT DISCHARGE SUMMARY PATIENT: PRADEEP DUBON UNIT: [id number] ADM DATE: 10/02/19 AGE: 54 : 61 SEX: F ROOM/BED: D.7841 AUTHOR: HORTENSIA,DOC PHYSICIAN: REFERRING PHYSICIAN: SANDEE SANCHEZ MD DATE OF SERVICE: 10/04/19 Discharge Plan Patient Name: PRADEEP DUBON Facility: [facility]:[place] : 1965 Planned Disposition: Long Term Facility Anticipated Discharge Date: 10/05/19 Discharge Date: Expected LOS: 3 Initial Reviewer: [id number] Initial Review Date: 10/01/2019 Generated: 10/04/19 5:51 pm Comments DCP- Discharge Planning Updated by [id number]: Manju Mata on 10/04/19 3:[address] Patient Name: PRADEEP DUBON Admission Status: Elective Accout number: [id number] Admission Date: 10-02-2019 : 1965 Admission Diagnosis: Attending: SANDEE SANCHEZ Current LOS: 2 Anticipated DC Date: 10-05-2019 Planned Disposition: Long Term Facility Primary Insurance: MEDICARE A & B Discharge Planning Comments: UPDATE FAXED TO [facility]. Health Associate: Manju Mata DCP- Discharge Planning Updated by [id number]: Kin Newman on 10/03/19 3:[address] Patient Name: PRADEEP DUBON Encounter No: [id number] : 1965 Primary Insurance: MEDICARE A & B Anticipated DC Date: 10-05-2019 Planned Disposition: Long Term Facility External Planned Provider: [facility], MEDICARE REHAB BED DCP follow-up note: CM RECEIVED ORDER FOR SENIOR CARE PLACEMENT. CM MET WITH PT IN ROOM, PT WANTS REHAB AT [facility] SHE HAS BEEN THERE BEFORE. CHOICE SIGNED. PT STATES SHE HAS A NEW PROSTHETHIC LEG AT HOME AND NEEDS REHAB TO BE ABLE TO WALK ON IT. CM ADVISED THAT FAMILY NEEDS TO BRING THE LEG HERE FOR THERAPY TO EVALUATE AND WORK WITH HER AND THE NEW LEG. ORDER FOR PHYSICAL THERAPY EVALUATION OBTAINED. CM FAXED REFERRAL INFORMATION TO [facility] AT [phone]; CM CALLED [facility] AT [facility], . WHO WILL EVALUATE PT FOR ADMISSION . CM TO FAX PHYSICAL THERAPY EVALUATION TO [facility] AND IS WAITING FOR ADMISSION DETERMINATION FROM [facility] FOR REHAB SERVICES. Kin Newman, CASE MANAGEMENT DCP- Discharge Planning Updated by [id number]: Kin Newman on 10/02/19 7:[address] Patient Name: PRADEEP DUBON Admission Status: Elective Accout number: [id number] Admission Date: 10-01-2019 : 1965 Admission Diagnosis: Attending: SANDEE SANCHEZ Current LOS: 1 Anticipated DC Date: Planned Disposition: Home Primary Insurance: MEDICARE A & B Discharge Planning Comments: LATE ENTRY FROM 10-01-19, 1645 HOURS: CM RECEIVED ORDER FOR IN VS OUT, TRANSPORTATION TO DIALYSIS AND TRANSPORTATION HOME. CM MET WITH PT IN ROOM TO DISCUSS DISCHARGE PLANNING AND NEEDS. PT REPORTS LIVING AT HOME INDEPENDENTLY WITH HER ADULT DAUGHTER AND SISTER. PT HAS A CANE WITH NO MEDICAL EQUIPMENT PROVIDER PREFERENCE. PT HAS PERSONAL CARE THROUGH MEDICAID; [employer] PAYS PT'S DAUGHTER FOR CAREGIVING, MONDAY THRU MONDAY, 2 HOURS PER DAY. PT GOES TO DIALYSIS IN [place], [facility], [address]. CM DISCUSSED AVAILABILITY OF HOME HEALTH, REHAB SERVICES AND MEDICAL EQUIPMENT. PT STATES SHE PLANS TO CONTINUE GOING TO THE [facility] WHERE SHE HAS BEEN DOING OUTPATIENT THERAPY. PT STATES IF SHE NEEDS SENIOR CARE REHAB, SHE WANTS [facility]. PT PLANS TO RETURN HOME, DENIES DISCHARGE NEEDS, REPORTS HER DAUGHTER WILL PICK HER UP FOR DISCHARGE HOME. PT STATES HAVING MEDICAID BUS SET UP FOR DIALYSIS TRANSPORTATION FROM HOME. PT PLANS TO DISCHARGE HOME WITH FAMILY, DAUGHTER TO TRANSPORT HOME. PT HAS NO ANTICIPATED DISCHARGE NEEDS AT TIME OF ASSESSMENT. Health Associate: Kin Newman DCPIA - Discharge Planning Initial Assessment Updated by [id number]: Kin Newman on 10/02/19 8:22 am * Is the patient Alert and Oriented? Yes * How many steps to enter\exit or inside your home? NONE * PCP DR. DAYSI WEEKS * Pharmacy [facility] IN [place] * Preadmission Environment Home with Family * ADLs Independent * Equipment Cane * Other Equipment NO MEDICAL EQUIPMENT PROVIDER PREFERENCE * List name and contact numbers for known caregivers / representatives who currently or will assist patient after discharge: SIM MELARA, DTR, MICHAEL ORTA, SISTER, * Verbal permission to speak to the caregivers and representatives has been obtained from the patient. N/A * Community resources currently utilized Other Private Duty Care * Please name any agencies selected above. OUTPATIENT DIALYSIS, [place], MWF, [address], [place] [employer] TRANSPORTATION VALEGER IS PAID CAREGIVER THROUGH [employer], [employer], 2 HOURS PER DAY * Additional services required to return to the preadmission environment? No * Can the patient safely return to the preadmission environment? Yes * Has this patient been hospitalized within the prior 30 days at any hospital? No Coverage Notice Reviewer: [id number] Sarahi Newman Notice Issued Date-Time: 10/03/2019 11:30 Notice Type: Patient Choice Letter Notice Delivered To: Patient Relationship to Patient: Strip Roller Name: Delivery Method: HAND - Hand Delivered Kaia Days: Prior Verbal Notification: Recipient Understood Notice: Yes Recipient Signature: Yes Med Rec Note Co-signed by Attending: Coverage Notice Comment: [facility] DP export: 10/03/19 3:34 Patient Name: PRADEEP DUBON Page 80242 at 1651 All edits/amendments must be made on the electronic document DICTATION DATE: 10/04/191650 INFANT NANNY: LISA 10/04/191650 RPT#: [id number] DC DATE: STATUS: ADM IN [facility] [address] [place] [address] END OF REPORT
--- NOTE | 2019-10-04 17:45 | NUR ---
I have reviewed this patient and I concur with the Shift Assessment completed by the Licensed Practical Nurse today this shift.
--- NOTE | 2019-10-04 21:10 | NUR ---
PT SITTING UP IN BED LISTENING TO TV. NO S/S OF DISTRESS AT THIS TIME. RR EVEN AND UNLABORED. VITALS STABLE. BED LOW CALL LIGHT WITHIN REACH. WILL CONTINUE TO MONITOR.
--- NOTE | 2019-10-04 22:40 | NUR ---
CHANGED DRESSING ON PT'S LEFT GROIN HEMASPLIT USING STERILE TECHNIQUE. DRESSING INTIALED AND DATED. C/D/I
--- NOTE | 2019-10-05 00:55 | NUR ---
PT RESTING IN BED WITH EYES CLOSED. RR EVEN AND UNLABORED. NO S/S OF DISTRESS AT THIS TIME. BED LOW CALL LIGHT WITHIN REACH. WILL CONTINUE TO MONITOR.
--- NOTE | 2019-10-05 04:03 | NUR ---
I have reviewed this patient and I concur with the Shift Assessment completed by the Licensed Practical Nurse today this shift.
[2019-10-05 04:30] VITALS: BP 117/60
[2019-10-05 06:13] LABS: ANION GAP 14.1 mmol/L (8-16); CALCIUM 8.1 mg/dL (8.5-10.1); CARBON DIOXIDE 26.8 mmol/L (21.0-32.0); CREATININE - SERUM 6.3 mg/dL (0.6-1.3); POTASSIUM - SERUM 4.9 mmol/L (3.5-5.1)
[2019-10-05 07:53] VITALS: BP 129/72
[2019-10-05 11:27] VITALS: BP 40/72
[2019-10-05 15:44] VITALS: BP 128/72
--- NOTE | 2019-10-05 17:38 | NUR ---
PT TAKEN TO DIALYSIS VIA BED.
--- NOTE | 2019-10-05 18:03 | NUR ---
I have reviewed this patient and I concur with the Shift Assessment completed by the Licensed Practical Nurse today this shift.
--- NOTE | 2019-10-05 19:29 | NUR ---
PT IS IN DIALYSIS, DIALYSIS CALL TO SAY PT WAS ASKING FOR A PAIN WILL, TOOK ULISSES DOWN TO ORDER
[2019-10-06] VITALS: BP 172/86
--- NOTE | 2019-10-06 03:08 | NUR ---
I have reviewed this patient and I concur with the Shift Assessment completed by the Licensed Practical Nurse today this shift.
--- NOTE | 2019-10-06 07:30 | NUR ---
PT RESTING RR EVEN AND UNLABORED. DENIES NEEDS OR PAIN AT THIS TIME. BED IN LOWEST POSITION. CALL LIGH WITHIN REACH. PT ASSISTED WITH MEAL AND WITH MENU. WILL CONTINUE TO MONITOR.
[2019-10-06 09:45] VITALS: BP 148/74
[2019-10-06 13:32] VITALS: BP 144/72
[2019-10-06 17:32] VITALS: BP 124/67
--- NOTE | 2019-10-06 17:58 | NUR ---
I have reviewed this patient and I concur with the Shift Assessment completed by the Licensed Practical Nurse today this shift.
--- NOTE | 2019-10-06 19:15 | NUR ---
RECEIVED REPORT, WILL ASSUME CARE OF PT, VISITING WITH DAUGHTER AND GRANDDAUTHERS, DENIES ANY NEEDS AT THIS TIME, BED IS LOW, SRX2, CALL LIGHT IN REACH, WILL CONTINUE PLAN OF CARE
[2019-10-06 20:00] VITALS: BP 132/66
[2019-10-07] VITALS: BP 136/64
--- NOTE | 2019-10-07 02:51 | NUR ---
I have reviewed this patient and I concur with the Shift Assessment completed by the Licensed Practical Nurse today this shift.
[2019-10-07 04:30] VITALS: BP 124/66
[2019-10-07 05:46] LABS: BASOPHILS 0.7 % (0-2); EOSINOPHILS 9.3 % (0-7); HEMATOCRIT 31.9 % (36.0-48.0); HEMOGLOBIN 10.3 g/dL (12-16); IMMATURE GRANULOCYTES 0.2 % (0-5); LYMPHOCYTES 38.4 % (15-50); MCH 32.4 pg (26.0-34.0); MCHC 32.3 g/dL (31.0-37.0); MCV 100.3 fL (80.0-100.0); MEAN PLATELET VOLUME 10.3 fL (7.4-10.4); MONOCYTES 10.2 % (2-11); NEUTROPHILS 41.2 % (40-80); RBC 3.18 10x6/uL (4.00-5.40); RDW 15.1 % (11.5-14.5); WBC 5.6 10x3/uL (4.8-10.8)
[2019-10-07 06:13] LABS: ALBUMIN 2.9 g/dL (3.4-5.0); ANION GAP 11.4 mmol/L (8-16); BILIRUBIN - TOTAL 0.24 mg/dL (0.2-1.3); CALCIUM 8.5 mg/dL (8.5-10.1); CARBON DIOXIDE 27.5 mmol/L (21.0-32.0); CREATININE - SERUM 5.5 mg/dL (0.6-1.3); PROTEIN - SERUM 6.8 g/dL (6.4-8.2)
[2019-10-07 06:14] LABS: PLATELET COUNT 228 10x3/uL (130-400)
[2019-10-07 06:15] LABS: POTASSIUM - SERUM 5.9 mmol/L (3.5-5.1)
--- NOTE | 2019-10-07 07:25 | NUR ---
PATIENT IS SITTING UP IN BED AT THIS TIME. PATIENT DENIES ANY NEEDS AT THIS TIME.
[2019-10-07 09:04] VITALS: BP 153/74
--- NOTE | 2019-10-07 12:12 | MORECARE ---
CASE MANAGEMENT DISCHARGE SUMMARY PATIENT: PRADEEP DUBON UNIT: [id number] ADM DATE: 10/02/19 AGE: 54 : 61 SEX: F ROOM/BED: D.4395 AUTHOR: HORTENSIA,DOC PHYSICIAN: REFERRING PHYSICIAN: SANDEE SANCHEZ MD DATE OF SERVICE: 10/07/19 Discharge Plan Patient Name: PRADEEP DUBON Facility: [facility]:[place] : 1965 Planned Disposition: Jail Facility Anticipated Discharge Date: 10/08/19 Discharge Date: Expected LOS: 6 Initial Reviewer: [id number] Initial Review Date: 10/01/2019 Generated: 10/07/19 1:12 pm DCP- Discharge Planning Updated by [email or web address]: Manju Mata on 10/04/19 3:[address] Patient Name: PRADEEP DUBON Admission Status: Elective Accout number: [id number] Admission Date: 10-02-2019 : 1965 Admission Diagnosis: Attending: SANDEE SANCHEZ Current LOS: 2 Anticipated DC Date: 10-05-2019 Planned Disposition: Jail Facility Primary Insurance: MEDICARE A & B Discharge Planning Comments: UPDATE FAXED TO [facility]. Pediatrics Hospitalist: Manju Mata DCP- Discharge Planning Updated by [email or web address]: Kin Newman on 10/03/19 3:[address] Patient Name: PRADEEP DUBON Encounter No: [id number] : 1965 Primary Insurance: MEDICARE A & B Anticipated DC Date: 10-05-2019 Planned Disposition: Jail Facility External Planned Provider: [facility], MEDICARE REHAB BED DCP follow-up note: CM RECEIVED ORDER FOR SENIOR LIVING PLACEMENT. CM MET WITH PT IN ROOM, PT WANTS REHAB AT [facility] SHE HAS BEEN THERE BEFORE. CHOICE SIGNED. PT STATES SHE HAS A NEW PROSTHETHIC LEG AT HOME AND NEEDS REHAB TO BE ABLE TO WALK ON IT. CM ADVISED THAT FAMILY NEEDS TO BRING THE LEG HERE FOR THERAPY TO EVALUATE AND WORK WITH HER AND THE NEW LEG. ORDER FOR PHYSICAL THERAPY EVALUATION OBTAINED. CM FAXED REFERRAL INFORMATION TO [facility] AT [phone]; CM CALLED [facility] AT [facility], . WHO WILL EVALUATE PT FOR ADMISSION . CM TO FAX PHYSICAL THERAPY EVALUATION TO [facility] AND IS WAITING FOR ADMISSION DETERMINATION FROM [facility] FOR REHAB SERVICES. Kin Newman, CASE MANAGEMENT DCP- Discharge Planning Updated by [id number]: Kin Newman on 10/02/19 7:[address] Patient Name: PRADEEP DUBON Admission Status: Elective Accout number: [id number] Admission Date: 10-01-2019 : 1965 Admission Diagnosis: Attending: SANDEE SANCHEZ Current LOS: 1 Anticipated DC Date: Planned Disposition: Home Primary Insurance: MEDICARE A & B Discharge Planning Comments: LATE ENTRY FROM 10-01-19, 1645 HOURS: CM RECEIVED ORDER FOR IN VS OUT, TRANSPORTATION TO DIALYSIS AND TRANSPORTATION HOME. CM MET WITH PT IN ROOM TO DISCUSS DISCHARGE PLANNING AND NEEDS. PT REPORTS LIVING AT HOME INDEPENDENTLY WITH HER ADULT DAUGHTER AND SISTER. PT HAS A CANE WITH NO MEDICAL EQUIPMENT PROVIDER PREFERENCE. PT HAS PERSONAL CARE THROUGH MEDICAID; [employer] PAYS PT'S DAUGHTER FOR CAREGIVING, MONDAY THRU MONDAY, 2 HOURS PER DAY. PT GOES TO DIALYSIS IN [place], [facility], [address], [address] [employer]. CM DISCUSSED AVAILABILITY OF HOME HEALTH, REHAB SERVICES AND MEDICAL EQUIPMENT. PT STATES SHE PLANS TO CONTINUE GOING TO THE [facility] WHERE SHE HAS BEEN DOING OUTPATIENT THERAPY. PT STATES IF SHE NEEDS SENIOR LIVING REHAB, SHE WANTS [facility]. PT PLANS TO RETURN HOME, DENIES DISCHARGE NEEDS, REPORTS HER DAUGHTER WILL PICK HER UP FOR DISCHARGE HOME. PT STATES HAVING MEDICAID BUS SET UP FOR DIALYSIS TRANSPORTATION FROM HOME. PT PLANS TO DISCHARGE HOME WITH FAMILY, DAUGHTER TO TRANSPORT HOME. PT HAS NO ANTICIPATED DISCHARGE NEEDS AT TIME OF ASSESSMENT. Pediatrics Hospitalist: Kin Newman DCPIA - Discharge Planning Initial Assessment Updated by [id number]: Kin Newman on 10/02/19 8:22 am * Is the patient Alert and Oriented? Yes * How many steps to enter\exit or inside your home? NONE * PCP DR. DAYSI WEEKS * Pharmacy [facility] IN [place] * Preadmission Environment Home with Family * ADLs Independent * Equipment Cane * Other Equipment NO MEDICAL EQUIPMENT PROVIDER PREFERENCE * List name and contact numbers for known caregivers / representatives who currently or will assist patient after discharge: SIM MELARA, DTR, MICHAEL ORTA, SISTER, * Verbal permission to speak to the caregivers and representatives has been obtained from the patient. N/A * Community resources currently utilized Other Private Duty Care * Please name any agencies selected above. OUTPATIENT DIALYSIS, [place], MWF, [address], [place] [employer] TRANSPORTATION JUANPABLO IS PAID CAREGIVER THROUGH [employer], [place], 2 HOURS PER DAY * Additional services required to return to the preadmission environment? No * Can the patient safely return to the preadmission environment? Yes * Has this patient been hospitalized within the prior 30 days at any hospital? No Coverage Notice Reviewer: [id number] Newman Notice Issued Date-Time: 10/03/2019 11:30 Notice Type: Patient Choice Letter Notice Delivered To: Patient Relationship to Patient: Visitor Services Assistant Name: Delivery Method: HAND - Hand Delivered Kaia Days: Prior Verbal Notification: Recipient Understood Notice: Yes Recipient Signature: Yes Med Rec Note Co-signed by Attending: Coverage Notice Comment: [facility] Reviewer: [id number] Newman Notice Issued Date-Time: 10/07/2019 11:50 Notice Type: IM Discharge Notice Notice Delivered To: Patient Relationship to Patient: Visitor Services Assistant Name: Delivery Method: HAND - Hand Delivered Kaia Days: Prior Verbal Notification: Recipient Understood Notice: Yes Recipient Signature: Yes Med Rec Note Co-signed by Attending: Coverage Notice Comment: Last DP export: 10/04/19 3:51 Patient Name: PRADEEP DUBON Page 19207 at 1212 All edits/amendments must be made on the electronic document DICTATION DATE: 10/07/19 121 VEHICLE BODY BUILDER: LISA 10/07/19 1212 RPT#: [id number] DC DATE: STATUS: ADM IN [facility] [address] [place] [address] END OF REPORT
--- NOTE | 2019-10-07 12:20 | MORECARE ---
CASE MANAGEMENT DISCHARGE SUMMARY PATIENT: PRADEEP DUBON UNIT: [id number] ADM DATE: 10/02/19 AGE: 54 : 61 SEX: F ROOM/BED: D.1081 AUTHOR: HORTENSIA,DOC PHYSICIAN: REFERRING PHYSICIAN: SANDEE SANCHEZ MD DATE OF SERVICE: 10/07/19 Discharge Plan Patient Name: PRADEEP DUBON Facility: [facility]:[place] : 1965 Planned Disposition: Alf Facility Anticipated Discharge Date: 10/08/19 Discharge Date: Expected LOS: 6 Initial Reviewer: [id number] Initial Review Date: 10/01/2019 Generated: 10/07/19 1:19 pm Comments DCP- Discharge Planning Updated by [id number]: Kin Newman on 10/07/19 11:[address] Patient Name: PRADEEP DUBON Encounter No: [id number] : 1965 Primary Insurance: MEDICARE A & B Anticipated DC Date: 10-08-2019 Planned Disposition: Alf Facility External Planned Provider: [facility] DCP follow-up note: CM SPOKE TO PT IN ROOM, PT STILL WANTS REHAB AT [facility] SHE HAS BEEN THERE BEFORE. IMPORTANT MESSAGE FROM MEDICARE PROVIDED AND EXPLAINED. PT HAS PROSTHESIS WITH HER FOR THERAPY SERVICES. CM FAXED REFERRAL UPDATE TO [facility] AT [phone]; CM CALLED [facility] AT [facility], . [facility] WILL ACCEPT PT FOR REHAB TOMORROW MORNING, WILL TRANSPORT TO AND FROM OUTPATIENT DIALYSIS IN [place]. CM NOTIFIED YARY BOWMAN OF [facility]NAL. FOR DISCHARGE TO REHAB AT [facility], FAX DISCHARGE INFORMATION TO [facility] AT [phone]; NURSE REPORT TO BE CALLED TO [facility] AT [phone]. [facility] TO ARRANGE VAN TRANSPORTATION. NOELLE Strauss DCP- Discharge Planning Updated by [id number]: Manju Mata on 10/04/19 3:[address] Patient Name: PRADEEP DUBON Admission Status: Elective Accout number: [id number] Admission Date: 10-02-2019 : 1965 Admission Diagnosis: Attending: SANDEE SANCHEZ Current LOS: 2 Anticipated DC Date: 10-05-2019 Planned Disposition: Alf Facility Primary Insurance: MEDICARE A & B Discharge Planning Comments: UPDATE FAXED TO [facility]. Senior Business Development Manager: Manju Mata DCP- Discharge Planning Updated by [id number]: Kin Newman on 10/03/19 3:[address] Patient Name: PRADEEP DUBON Encounter No: [id number] : 1965 Primary Insurance: MEDICARE A & B Anticipated DC Date: 10-05-2019 Planned Disposition: Alf Facility External Planned Provider: [facility] MEDICARE REHAB BED DCP follow-up note: CM RECEIVED ORDER FOR CUSTODIAL PLACEMENT. CM MET WITH PT IN ROOM, PT WANTS REHAB AT [facility] SHE HAS BEEN THERE BEFORE. CHOICE SIGNED. PT STATES SHE HAS A NEW PROSTHETHIC LEG AT HOME AND NEEDS REHAB TO BE ABLE TO WALK ON IT. CM ADVISED THAT FAMILY NEEDS TO BRING THE LEG HERE FOR THERAPY TO EVALUATE AND WORK WITH HER AND THE NEW LEG. ORDER FOR PHYSICAL THERAPY EVALUATION OBTAINED. CM FAXED REFERRAL INFORMATION TO [facility] AT [phone]; CM CALLED [facility] AT [facility], . WHO WILL EVALUATE PT FOR ADMISSION . CM TO FAX PHYSICAL THERAPY EVALUATION TO [facility] AND IS WAITING FOR ADMISSION DETERMINATION FROM [facility] FOR REHAB SERVICES. Kin Newman, CASE MANAGEMENT DCP- Discharge Planning Updated by [id number]: Kin Newman on 10/02/19 7:[address] Patient Name: PRADEEP DUBON Admission Status: Elective Accout number: [id number] Admission Date: 10-01-2019 : 1965 Admission Diagnosis: Attending: SANDEE SANCHEZ Current LOS: 1 Anticipated DC Date: Planned Disposition: Home Primary Insurance: MEDICARE A & B Discharge Planning Comments: LATE ENTRY FROM 10-01-19, 1645 HOURS: CM RECEIVED ORDER FOR IN VS OUT, TRANSPORTATION TO DIALYSIS AND TRANSPORTATION HOME. CM MET WITH PT IN ROOM TO DISCUSS DISCHARGE PLANNING AND NEEDS. PT REPORTS LIVING AT HOME INDEPENDENTLY WITH HER ADULT DAUGHTER AND SISTER. PT HAS A CANE WITH NO MEDICAL EQUIPMENT PROVIDER PREFERENCE. PT HAS PERSONAL CARE THROUGH MEDICAID; [employer] PAYS PT'S DAUGHTER FOR CAREGIVING, MONDAY THRU MONDAY, 2 HOURS PER DAY. PT GOES TO DIALYSIS IN [place], MWF, [address], [address] [employer] TRANSP[address]ATION [address]. CM DISCUSSED AVAILABILITY OF HOME HEALTH, REHAB SERVICES AND MEDICAL EQUIPMENT. PT STATES SHE PLANS [facility] BE[facility] DOING OUTPATIENT THERAPY. PT STATES IF SHE NEEDS CUSTODIAL REHAB, SHE WANTS [facility]. PT PLANS TO RETURN HOME, DENIES DISCHARGE NEEDS, REPORTS HER DAUGHTER WILL PICK HER UP FOR DISCHARGE HOME. PT STATES HAVING MEDICAID BUS SET UP FOR DIALYSIS TRANSPORTATION FROM HOME. PT PLANS TO DISCHARGE HOME WITH FAMILY, DAUGHTER TO TRANSPORT HOME. PT HAS NO ANTICIPATED DISCHARGE NEEDS AT TIME OF ASSESSMENT. Senior Business Development Manager: Kin Newman DCPIA - Discharge Planning Initial Assessment Updated by [email or web address]: Kin Newman on 10/02/19 8:22 am * Is the patient Alert and Oriented? Yes * How many steps to enter\exit or inside your home? NONE * PCP DR. DAYSI WEEKS * Pharmacy [facility] IN [place] * Preadmission Environment Home with Family * ADLs Independent * Equipment Cane * Other Equipment NO MEDICAL EQUIPMENT PROVIDER PREFERENCE * List name and contact numbers for known caregivers / representatives who currently or will assist patient after discharge: SIM MELARA, DTR, MICHAEL ORTA, SISTER, * Verbal permission to speak to the caregivers and representatives has been obtained from the patient. N/A * Community resources currently utilized Other Private Duty Care * Please name any agencies selected above. OUTPATIENT DIALYSIS, [place], [place], [address], [place] [employer] TRANSPORTATION DAUGHTGER IS PAID CAREGIVER THROUGH [employer], -, 2 HOURS PER DAY * Additional services required to return to the preadmission environment? No * Can the patient safely return to the preadmission environment? Yes * Has this patient been hospitalized within the prior 30 days at any hospital? No Coverage Notice Reviewer: [id number] Sarahi Newman Notice Issued Date-Time: 10/03/2019 11:30 Notice Type: Patient Choice Letter Notice Delivered To: Patient Relationship to Patient: Sports Activities Foul Judge Name: Delivery Method: HAND - Hand Delivered Kaia Days: Prior Verbal Notification: Recipient Understood Notice: Yes Recipient Signature: Yes Med Rec Note Co-signed by Attending: Coverage Notice Comment: [email or web address] Reviewer: [id number] Sarahi Newman Notice Issued Date-Time: 10/07/2019 11:50 Notice Type: IM Discharge Notice Notice Delivered To: Patient Relationship to Patient: Sports Activities Foul Judge Name: Delivery Method: HAND - Hand Delivered Kaia Days: Prior Verbal Notification: Recipient Understood Notice: Yes Recipient Signature: Yes Med Rec Note Co-signed by Attending: Coverage Notice Comment: Last DP export: 10/07/19 11:12 Patient Name: PRADEEP DUBON Page 10930 at 1220 All edits/amendments must be made on the electronic document DICTATION DATE: 10/07/191218 STUDENT DRIVING INSTRUCTOR: LISA 10/07/191218 RPT#: [id number] DC DATE: STATUS: ADM IN [facility] [address] [place] [address] END OF REPORT
[2019-10-07 13:54] VITALS: BP 147/75
--- NOTE | 2019-10-07 13:55 | NUR ---
Nutrition Follow-up: Good/fair PO intake. Per record, ate 100% of breakfast this AM. Diet: Renal ADA PO intake: 79% avg x 7 meals No new wt No BMs recorded Labs noted: K+ 5.9, Alb 2.9 Meds noted: Senokot, Miralax, Nephrovite, Renvela -Continue current diet as tolerated. -RD following.
--- NOTE | 2019-10-07 15:09 | NUR ---
PATIENT IS IN DIALYSIS.
--- NOTE | 2019-10-07 17:29 | NUR ---
PATIENT CAME BACK FROM DIALYSIS AND SHE IS HUNGRY . SHE DID NOT EAT BREAKFAST, AND SO SHE IS GETTING AN EXTRA PORKCHOP. THEY TOOK ONE LITER OFF IN DIALYSIS.
--- NOTE | 2019-10-07 19:30 | NUR ---
RECEIVED REPORT, WILL ASSUME CARE OF PT, ASKING FOR A NORCO, WILL PROVIDED ORDER, BED IS LOW, SRX2, CALL LIGHT IN REACH, WILL CONTINUE PLAN OF CARE
[2019-10-07 20:00] VITALS: BP 136/74
[2019-10-08] VITALS: BP 133/63
--- NOTE | 2019-10-08 03:51 | NUR ---
I have reviewed this patient and I concur with the Shift Assessment completed by the Licensed Practical Nurse today this shift.
[2019-10-08 04:00] VITALS: BP 127/68
[2019-10-08 05:33] LABS: BASOPHILS 0.4 % (0-2); EOSINOPHILS 8.8 % (0-7); HEMATOCRIT 31.2 % (36.0-48.0); HEMOGLOBIN 9.9 g/dL (12-16); IMMATURE GRANULOCYTES 0.4 % (0-5); LYMPHOCYTES 38.2 % (15-50); MCH 31.8 pg (26.0-34.0); MCHC 31.7 g/dL (31.0-37.0); MCV 100.3 fL (80.0-100.0); MEAN PLATELET VOLUME 10.2 fL (7.4-10.4); MONOCYTES 11.4 % (2-11); NEUTROPHILS 40.8 % (40-80); PLATELET COUNT 219 10x3/uL (130-400); RBC 3.11 10x6/uL (4.00-5.40); RDW 15.2 % (11.5-14.5)
[2019-10-08 06:07] LABS: ALBUMIN 2.9 g/dL (3.4-5.0); ANION GAP 14.2 mmol/L (8-16); BILIRUBIN - TOTAL 0.21 mg/dL (0.2-1.3); CALCIUM 8.5 mg/dL (8.5-10.1); CARBON DIOXIDE 25.8 mmol/L (21.0-32.0); CREATININE - SERUM 5.6 mg/dL (0.6-1.3); PROTEIN - SERUM 6.7 g/dL (6.4-8.2)
--- NOTE | 2019-10-08 07:08 | NUR ---
RECIEVED REPORT. PATIENT IS RESTING QUIETLY AT THIS TIME. DENIES ANY NEEDS AT THIS TIME.
--- NOTE | 2019-10-08 07:37 | OP ---
PATIENT NAME: JESSICA GONZALEZ MEDICAL RECORD: [id number] :61 LOCATION:D. D.2135 ADMISSION DATE:10/02/19 SURGEON: GRACIE GOLDSTEIN MD DATE OF OPERATION: 10/01/2019 REFERRED BY: Uli Fierro MD PREOPERATIVE DIAGNOSES: End-stage renal disease and dependence on hemodialysis with loss of upper extremity dialysis access. ADDITIONAL DIAGNOSES: Hypertension, diabetes, peripheral atherosclerotic arterial disease status post left below knee amputation. POSTOPERATIVE DIAGNOSES: End-stage renal disease and dependence on hemodialysis with loss of upper extremity dialysis access. OPERATION PERFORMED: Ultrasound-guided access and performance of a superior vena cavogram and angioplasty of 90% stenosis of the right subclavian vein followed by implantation of an Artegraft loop AV graft in the right arm between the proximal brachial artery and proximal basilic vein with completion superior vena cavogram and right brachial arteriogram. SURGEON: Gracie Goldstein MD ANESTHESIA: General per NIGHT ORDER SELECTOR. PREOPERATIVE NOTE: Ms. Jessica Gonzalez is a 54-year-old -Spanish female with end-stage renal disease, who is on chronic hemodialysis in [place]. At this time, she has a femoral catheter. She has had a femoral catheter for several months. She has a history of MRSA staphylococcal infections and bacteremia also along with her diabetes and hypertension, peripheral atherosclerotic vascular disease. She has no internal jugular veins available for dialysis catheter insertion. I had seen earlier this year and she had actually been scheduled to come in to have surgery for creation of an access in her right arm hopefully back in the very early July. She has been a no show and has had hospitalization for complications, which delayed her having the procedure she is brought to the hospital for today. DESCRIPTION OF PROCEDURE: Under general anesthesia, she was prepped and draped in a sterile manner with the right arm abducted. I used ultrasound to examine the vessels in the axilla and upper arm and then used ultrasound guidance and micropuncture technique to place a wire and catheter in the proximal basilic and axillary vein. Hard copy images were printed and to document the ultrasound they are placed in the patient's medical record. After inserting a 5-Ethiopian catheter percutaneously via the basilic vein, I performed a superior vena cavogram. Imaging the proximal basilic and the axillary subclavian innominate veins and superior vena cava, I found a 90% stenosis of the right subclavian vein. I then exchanged the small catheter for a 6-Ethiopian introducer and advanced a guidewire and glide catheter proximally and I was able to cross the stenosis and pass the guidewire down into the inferior vena cava. I then inserted a 12-mm Bellwood balloon and dilated the stenotic subclavian vein. The stenosis was somewhat fibrotic and was dilated only after several inflations and holding the balloon inflated for up to 1 minute. However, we did achieve full effacement of the balloon and on repeat contrast OPERATIVE REPORT [id number] JESSICA GONZALEZ injection there was full resolution with 0% residual stenosis. I felt that we could then go on to do a right upper extremity AV graft and I made an incision on the inside of the arm and exposed the basilic vein where the introducer had been inserted and sutured the puncture site. The basilic vein was controlled just above that with Silastic loops and prepared for anastomosis and the brachial artery at that level high in the arm was exposed and controlled with Silastic loops also. I chose an Artegraft prosthetic and it was rinsed and prepared as per the senior lead software engineer's instructions. One end was bevelled and the vein was opened, flushed with heparinized saline and the graft anastomosed to it, end of graft to side of vein with running 6-0 Prolene. The suture line was treated with Evicel and when the graft was flushed with saline the suture line was watertight. A counterincision was made on the distal arm and the graft brought from the proximal incision down to the distal incision and then through a very superficial subcutaneous tunnel using an acutely curved Impra tunneler. The graft was brought back to the upper incision and vicinity of the brachial artery where it was shortened and bevelled, and again flushed with heparinized saline. The artery was occluded and then opened and flushed proximally and distally with heparinized saline. The artery was quite atherosclerotic with very thickened sparrow, but smooth lumen. The artery was flushed with heparinized saline and the graft then anastomosed end of graft to side of artery with continuous running 6-0 Prolene. When the occluding clamps and loops were released, excellent flow with a strong thrill and pulsation developed immediately within the patient's graft. I then noted on Doppler examination that there was pulsatile Doppler flow in the radial artery at the wrist, but it was monophasic and of much less amplitude when the graft was opened than when it was clamped. I performed a completion venogram then in accessing the basilic vein through the graft with micropuncture catheter and this study shows an excellent result with 0% persistence of stenosis in that vessel. Similarly, I performed a brachial artery arteriogram by passing a 5-Ethiopian catheter through the graft, retrograde into the brachial artery. Contrast was injected and digital subtraction technique used to image the vessels to the distal forearm. The brachial artery was small, but patent. It bifurcates in the proximal radial and ulnar arteries are normal and clear, but then both taper very dramatically and there are very small vessels in the distal forearm and very poor flow into the distal forearm and into the hand. This study was with the graft clamped. I felt the patient very likely to have ischemic complications and so I went ahead and did a banding for flow reduction with a Garcia banding technique. I inflated a 4-mm angioplasty balloon and held it up against the side of the juxta-anastomotic segment of graft and then encircled the graft and balloon with two 2-0 Prolene ties. These were tied down snugly over the balloon to create as close as possible a 4-mm diameter lumen of the graft in that segment. When the balloon was deflated and removed, flow resumed within the graft, but the thrill was lessened and the pulsation not as strong. This, I thought was as good as we could do at this point. The wound was irrigated with saline and infiltrated with 0.25% Marcaine without epinephrine. No drain was used. Both wounds were closed with interrupted inverted 3-0 Vicryl and running intracuticular 4-0 Stratafix and Dermabond glue. They were dressed with Maxorb Ag, Tegaderm, and Cavilon skin prep. The patient awakened from her anesthetic, was then taken to the recovery room. Blood loss during the operation was about 50 cc, was unreplaced, probably less. Sponges, instruments and needles were accounted for. No drain was used and no surgical specimen was submitted for histopathology. In the recovery room, the patient had a brief run of V-tach and I think needs to be observed in the hospital overnight. In addition, she has no transportation to home in all likelihood, and as her daughter dropped her off this morning and OPERATIVE REPORT [id number] JESSICA GONZALEZ has not been back and the patient had expectations that she would stay in the hospital, although I do not know why, I did not tell her that preop. However, I believe that she is somewhat at risk for bleeding and certainly at risk for ischemic symptoms in her hand and I will feel better if she is observed in the hospital overnight for those reasons as well. Hopefully, she can have transportation in the morning and be discharged to go back to [place] for dialysis tomorrow morning. The patient's records show that she has been on Coumadin in the past and has a history of DVT. She denies, however, having been on Coumadin at any time recently. My records just said that she was supposed to be off Coumadin for 5 days preop. We will need to have her primary hot wire glass tube cutter, Dr. Fierro, and otm consultant, Dr. Steven, declare she is supposed to be or should continue on Coumadin. I would like to see her at least on aspirin. TRANSINT:[id number] Voice Confirmation ID: [id number] DOCUMENT ID: [id number] cc: [facility] GRACIE GOLDSTEIN MD at 0737 CC: ULI FIERRO MD and DAPHNE STEVEN [id number] DICTATION DATE: 10/01/19 1424 PEDIATRIC UROLOGIST: 10/01/19 1511 ADM IN [facility] [address] [place] [address]
[2019-10-08] MEDS ORDERED: RENVELA0.8 GM PO (08:40)
[2019-10-08] MEDS ORDERED: MIRALAX17 GM PO (08:40)
[2019-10-08] MEDS ORDERED: NEPHRO-VITE RX1 TAB PO (08:41)
[2019-10-08] MEDS ORDERED: VELTASSA8.4 GM PO (08:41)
[2019-10-08] MEDS ORDERED: HUMALOG 30100 UNITS/ SC (08:42)
[2019-10-08] MEDS ORDERED: HUMULIN 70100 UNIT/1 (08:46)
--- NOTE | 2019-10-08 08:48 | EC ---
PATIENT:PRADEEP DUBON DATE OF SERVICE: 10/02/19 SEX: F MEDICAL RECORD: [id number] DATE OF : [birth year] LOCATION:D.M2 D.213 AGE OF PATIENT: 54 ADMISSION DATE: 10/02/19 REFERRING PHYSICIAN: INTERPRETING PHYSICIAN: VENKATESH HAYDEN MD ECHOCARDIOGRAM REPORT ECHO CHARGES 4 ECHO COMPLETE Date: 10/02/19 CLINICAL DIAGNOSIS: V-TACH ECHOCARDIOGRAPHIC MEASUREMENTS (adult normal given) AC root (d.<3.7cm) 3.2 cm LV Septum d (<1.2 cm> 1.4 cm Valve Excursion 2.0 cm LV Septum (systole) 1.6 cm Left Atria (s.<4.0cm> 4.0 cm LVPW d(<1.2cm) 1.4 cm RV (d.<2.3cm) 2.4 cm LVPW (sytole) 2.0 cm LV diastole(<5.6CM) 3.9 cm MV E-F(>70mm/sec) cm LV systole 1.6 cm LVOT Diameter 1.8 cm MV exc.(>10mm) cm Est.ejection fraction (50-75%) % DOPPLER: LVIT cm/sec A 116 cm/sec E 126 cm/sec LA cm/sec RVSP 36.0 mmHg LVOT 93.0 cm/sec AOP1/2T m/s Asc. Ao 167 cm/sec RVOT 47.0 cm/sec RA cm/sec PA 100 cm/sec AV Gradient Peak 11.2 mmHg AV Mean 5.5 mmHg AV Area 1.6 cm MV Gradient Peak 6.6 mmHg MV Mean 2.4 mmHg MV Area cm COMMENTS: Fingerprint Expert: Suha QUINTANAOE Goods Layer: 3 Dr. Bob TAPE# PACS Pericardial Effusion N DATE OF SERVICE: Adequate 2D, color flow, spectral Doppler, and M-mode. LVH is present. LV internal dimensions are normal. Wall motion is normal. EF is greater than or equal to 55%. Aortic valve is sclerotic. There is no evidence of stenosis by Doppler interrogation. Left atrium is normal at 4.0 cm. Mitral valve shows no prolapse. Trace MR. Right-sided chambers are grossly normal. Mild plus TR by color flow imaging. TRANSINT:[id number] Voice Confirmation ID: [id number] DOCUMENT ID: [id number] ECHOCARDIOGRAM REPORT [id number] PRADEEP DUBON GREGORY A MD at 0848 CC: [id number] DICTATION DATE: 10/03/19 141 WATCH ADJUSTER: 10/03/19 1545 ADM IN [place] [id number] [place] [id number]
[2019-10-08 09:01] VITALS: BP 122/67
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
--- NOTE | 2019-10-08 10:10 | NUR ---
DISCHARGE TEACHING IS BEING WORKED ON. I READ ALL HER INSTRUCTIONS OUT LOUD. PATIENT REPORTS THAT SHE IS HOPING FOR A CHANGE IN HER PAIN MEDICATIONS AND I LET HER KNOW THAT SHE NEEDS TO BRING IT UP WITH HER DR IN DIALYSIS TOMORROW. SHE IS GETTING DRESSED AND CLEANED UP NOW. TELEMETRY IS BEING REMOVED AND RETURNED.
--- NOTE | 2019-10-08 11:24 | NUR ---
PATIENT IS BEING DISCHARGED. APPLIED NEW MEPLEX TO HER BUTTOCK. THERE IS A SMALL PATCH OF RED SKIN THERE. CALLING AND GIVING REPORT NOW TO [facility] IN [place]. SHE WILL BE TRANSPORTED TO [facility] FOR DIALYSIS. SHE IS DRESSED AND READY FOR DISCHARGE.
--- NOTE | 2019-10-08 11:34 | NUR ---
PATIENT WILL BE PICKED UP IN 45 MIN . ALL HER PERSONAL BELONGINGS HAVE BEEN PACKED UP AND SHE IS READY TO GO.
--- NOTE | 2019-10-09 07:44 | DS ---
PATIENT:PRADEEP GONZALEZ :[birth year] MEDICAL RECORD: [id number] DISCHARGE SUMMARY ADMISSION DATE: 10/02/19 DISCHARGE DATE: 10/08/19 HISTORY OF PRESENT ILLNESS: Ms. Gonzalez is a 54-year-old black female with end-stage renal disease, whom I have seen in [facility]. She was admitted following an elective outpatient placement of a right upper Dewitt-Mehrdad graft by Dr. Lim, but had a cardiac arrhythmia, felt to represent a V-tach in the recovery room and was admitted for the above. HOSPITAL COURSE: The patient was seen by cardiology, where she had no further arrhythmia. Echocardiogram was essentially negative and Dr. Bob did not feel that it was a run of V-tach. She had an abnormal chest x-ray. A CT of the chest did not confirm any evidence of mass as suspicioned on chest x-ray. She then requested alf placement and will be discharged to the alf today with her graft healing nicely. DISCHARGE DIAGNOSES: 1. Cardiac arrhythmia postop, resolved. 2. Abnormal chest x-ray with negative CT of the chest. 3. Status post placement of right upper Dewitt-Mehrdad graft for dialysis access. 4. Chronic anemia. 5. Poor social situation. 6. History of drug abuse. PLAN: The patient will be discharged to the alf today. She will resume her dialysis in [facility]. We will see her weekly in [facility]. DISCHARGE MEDICATIONS: Will be Veltassa 8.5 grams daily, Senokot 1 daily, MiraLax p.r.n., hydrocodone 5/325 one every 8 hours p.r.n., Seroquel 25 at bedtime. She will receive Epogen in dialysis, Nephro-Ken 1 daily, isosorbide 60 daily, Renvela 800 t.i.d., metoprolol 100 b.i.d., Neurontin 300 t.i.d., Effexor 150 daily. TRANSINT:[id number] Voice Confirmation ID: [id number] DOCUMENT ID: [id number] ULI LOBO MD at 0744 CC: [id number] DICTATION DATE: 10/08/19 08 LEVELER HELPER: 10/08/19 0835 DIS IN 10/08/19 [facility] [address] [place] [address]
== END 2019-10-08 12:23 | DRG 252 ==
LOC: D.M2 07:10 → D.OPS 07:10 → D.M2 14:59 → D.ICU 23:13 → D.M2 10-02 11:23 → D.OPS 10-02 11:57 → D.M2 10-02 11:57
PROVIDERS: Internal Medicine; Internal Medicine Nephrology; Surgery; ADMIT Internal Medicine Nephrology; ATTEND Internal Medicine Nephrology
PROC: 03180JD Bypass Left Brachial Artery to Upper Arm Vein with Synthetic Substitute, Open Approach (ICD-10-PCS; 2019-10-01)
PROC: B5181ZZ Fluoroscopy of Superior Vena Cava using Low Osmolar Contrast (ICD-10-PCS; 2019-10-01)
PROC: 057Y3ZZ Dilation of Upper Vein, Percutaneous Approach (ICD-10-PCS; principal; 2019-10-01 10:00)
PROC: 5A1D70Z Performance of Urinary Filtration, Intermittent, Less than 6 Hours Per Day (ICD-10-PCS; 2019-10-02)
DX: T82.858A Stenosis of other vascular prosthetic devices, implants and grafts, initial encounter (principal); N18.6 End stage renal disease; I13.2 Hypertensive heart and chronic kidney disease with heart failure and with stage 5 chronic kidney disease, or end stage renal disease; I47.2 Ventricular tachycardia; Z99.2 Dependence on renal dialysis; E11.9 Type 2 diabetes mellitus without complications; E11.22 Type 2 diabetes mellitus with diabetic chronic kidney disease; J44.9 Chronic obstructive pulmonary disease, unspecified; E11.51 Type 2 diabetes mellitus with diabetic peripheral angiopathy without gangrene; Y83.9 Surgical procedure, unspecified as the cause of abnormal reaction of the patient, or of later complication, without mention of misadventure at the time of the procedure; I50.9 Heart failure, unspecified; I48.0 Paroxysmal atrial fibrillation; Z89.512 Acquired absence of left leg below knee; Z72.0 Tobacco use

== ENCOUNTER 2021-01-20 00:23 | Observation (INO) | payer MEDICARE ==
[~2021-01-20] VITALS: Ht 162.6 cm; Wt 53.6 kg
[2021-01-20] VITALS (7 sets, daily range): BP systolic 120–160; BP diastolic 54–86; Ht 162.6 cm; Wt 53.6 kg
[~2021-01-20 00:23] MED LIST changes: +ACETAMINOPHEN500 M1 PO; +EFFEXOR XR150 MG PO; +ELAVIL10 MG PO; +GLUCOTROL 5 MG T5 MG PO; +HUMALOG 30100 UNITS/ SC; +HUMULIN 70100 UNIT/1; +HYDROCODON-ACE1 EA10 PO; +HYDROCODONE-AC1 EAC2 PO; +MIRALAX17 GM PO; +NEURONTIN 300300 MG PO; +NORVASC5 MG PO; +OMEPRAZOLE20 M1 PO; +RENVELA0.8 GM PO; +SEROQUEL50 MG PO; +TOPROL XL100 MG PO; +ULTRAM50 MG PO; +VELTASSA8.4 GM PO
[2021-01-20 01:52] LABS: BASOPHILS 0.8 % (0-2); EOSINOPHILS 5.7 % (0-7); HEMATOCRIT 30.7 % (36.0-48.0); HEMOGLOBIN 10.2 g/dL (12-16); IMMATURE GRANULOCYTES 0.2 % (0-5); LYMPHOCYTE ABS# 1.75 10x3/uL (1.18-3.74); LYMPHOCYTES 26.4 % (15-50); MCH 34.2 pg (26.0-34.0); MCHC 33.2 g/dL (31.0-37.0); MEAN PLATELET VOLUME 9.6 fL (7.4-10.4); MONOCYTES 9.7 % (2-11); NEUTROPHIL ABS# 3.79 10x3/uL (1.56-6.13); NEUTROPHILS 57.2 % (40-80); PLATELET COUNT 269 10x3/uL (130-400); RBC 2.98 10x6/uL (4.00-5.40); RDW 13.6 % (11.5-14.5); WBC 6.6 10x3/uL (4.8-10.8)
[2021-01-20 01:56] LABS: ANION GAP 17.8 mmol/L (8-16); CALCIUM 7.8 mg/dL (8.5-10.1); CARBON DIOXIDE 24.5 mmol/L (21.0-32.0); CREATININE - SERUM 7.8 mg/dL (0.6-1.3); POTASSIUM - SERUM 4.3 mmol/L (3.5-5.1)
[2021-01-20 02:18] LABS: ALBUMIN 3.6 g/dL (3.4-5.0); BILIRUBIN - TOTAL 0.26 mg/dL (0.2-1.3)
--- NOTE | 2021-01-20 02:45 | NUR ---
DR NASCIMENTO NOTIFIED AND SITTER ORDERED. SITTER AT BEDSIDE. NOTIFIED CHARGE NURSE AND ATTENDING IN REGARDS TO ASSESSMENT FINDINGS. RESOURCES GIVEN TO PT AND SAFETY PLAN INITIATED.
[2021-01-20 03:52] LABS: SARS-CoV-2 ANTIGEN NEGATIVE- SARS-COV-2 (NEGATIVE)
--- NOTE | 2021-01-20 14:12 | NUR ---
CASE MANAGEMENT NOTIFIED OF PT POC ET NEEDS AT THIS TIME. THEY WILL EVALUATE AND COME TO ED TO INTERVIEW PT.
--- NOTE | 2021-01-20 14:54 | NUR ---
PT TO DIALYSIS VIA ED CART AT THIS TIME.
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
--- NOTE | 2021-01-20 18:18 | NUR ---
CONTACTED CHRISTI ADORNO NOTIFIED NO RETURN CALL FROM DERMATOLOGY CONSULT. REQUESTED A CREAM FOR PT PSORIASIS. SHE WILL CONTACT RENAL AND PLACE ORDER. WILL CONTINUE TO MONITOR.
--- NOTE | 2021-01-20 18:19 | NUR ---
MEAL TRAY TO PT. PT EATING.
--- NOTE | 2021-01-20 20:26 | MORECARE ---
CASE MANAGEMENT DISCHARGE SUMMARY PATIENT: PRADEEP DUBON UNIT: [id number] ADM DATE: 01/20/21 AGE: 55 : 61 SEX: F ROOM/BED: D.E17 AUTHOR: HORTENSIADOC PHYSICIAN: REFERRING PHYSICIAN: ELIDA SEVERINO MD DATE OF SERVICE: 01/20/21 Discharge Plan Patient Name: PRADEEP DUBON Facility: [facility]:[place] : 1965 Planned Disposition: Anticipated Discharge Date: Discharge Date: Expected LOS: Initial Reviewer: [email or web address] Initial Review Date: 01/20/2021 Generated: 01/20/21 9:26 pm DCP- Discharge Planning Updated by [email or web address]: Desiree Miranda on 01/20/21 7:[address] Patient Name: PRADEEP DUBON Admission Status: ER Accout number: [id number] Admission Date: 01-20-2021 : 1965 Admission Diagnosis: Attending: ELIDA BRADSHAW Current LOS: 1 Anticipated DC Date: Planned Disposition: Primary Insurance: MEDICARE A & B Discharge Planning Comments: CM spoke with patient for discharge planning. Patient states that she lives at home with her siblings. Patient is blind and has dialysis MWF in [place]. Patient has Rt BKA and is complaining of severe pain of Left lower ext. Patient has told staff that she doesn't want to live anymore if she continues to have the pain. Patient was very drowsy during CM interview. CM will need to readdress d/c plan after Psych and Dermatology sees patient. Maybe at that time she will be more responsive to making a plan. CM will continue to follow and assist as needed with discharge planning / needs. Coater Associate: Desiree Miranda DCPIA - Discharge Planning Initial Assessment Updated by [email or web address]: Desiree Miranda on 01/20/21 8:03 pm * Is the patient Alert and Oriented? Yes * How many steps to enter\exit or inside your home? * PCP [facility] * [facility]acy [facility] * Preadmission Environment Home with Family * ADLs Partial Dependent * Partial ADLs (Assistance needed) Ambulation Bathing Dressing Eating Medication Management Toileting Transfers * Equipment None * List name and contact numbers for known caregivers / representatives who currently or will assist patient after discharge: SIM MELARA - DAUGHTER - [phone] * Verbal permission to speak to the caregivers and representatives has been obtained from the patient. Yes * Community resources currently utilized None * Additional services required to return to the preadmission environment? No * Can the patient safely return to the preadmission environment? Yes * Has this patient been hospitalized within the prior 30 days at any hospital? No Patient Name: PRADEEP DUBON Page [id number] at 2025 All edits/amendments must be made on the electronic document DICTATION DATE: 01/20/212025 KILN HEAD HOUSE OPERATOR: LISA 01/20/212025 RPT#: [id number] DC DATE: STATUS: ADM IN [facility] [address] [place] [address] END OF REPORT
[2021-01-21] MEDS ORDERED: Lotrisone Cream TOPICAL (04:48)
--- NOTE | 2021-01-21 05:10 | NUR ---
CONTACTED [facility]RISTI FOR MEDICAL RELEASE.
--- NOTE | 2021-01-21 05:20 | NUR ---
CHRISTI ASHRAF WAS INFORMED THE PATIENT HAS BEEN MEDICALLY CLEARED TO PROCEED WITH TRANSFER.
[2021-01-21 05:26] VITALS: BP 132/76
--- NOTE | 2021-01-21 05:54 | NUR ---
REPORT CALLED TO [facility] TALKED TO [facility]TTA, THEY ARE FULLY AWARE OF ALL HER HEALTH ISSUES, BEING BLIND AND NEEDING ASSITANCE, HD PATIETN ON MWF, AND THE CHRONIC SKIN ISSUES THAT WILL NEED CARE.
[2021-01-21 06:24] LABS: BASOPHILS 0.9 % (0-2); EOSINOPHILS 6.4 % (0-7); HEMOGLOBIN 10.6 g/dL (12-16); IMMATURE GRANULOCYTES 0.2 % (0-5); LYMPHOCYTE ABS# 1.66 10x3/uL (1.18-3.74); LYMPHOCYTES 35.6 % (15-50); MCH 33.5 pg (26.0-34.0); MCHC 32.1 g/dL (31.0-37.0); MCV 104.4 fL (80.0-100.0); MEAN PLATELET VOLUME 8.9 fL (7.4-10.4); MONOCYTES 10.3 % (2-11); NEUTROPHIL ABS# 2.17 10x3/uL (1.56-6.13); NEUTROPHILS 46.6 % (40-80); PLATELET COUNT 234 10x3/uL (130-400); RBC 3.16 10x6/uL (4.00-5.40); RDW 13.7 % (11.5-14.5)
[2021-01-21 06:26] LABS: WBC 4.7 10x3/uL (4.8-10.8)
[2021-01-21 07:08] LABS: ALBUMIN 3.4 g/dL (3.4-5.0); ANION GAP 13.6 mmol/L (8-16); BILIRUBIN - TOTAL 0.28 mg/dL (0.2-1.3); CALCIUM 8.1 mg/dL (8.5-10.1); CARBON DIOXIDE 26.2 mmol/L (21.0-32.0); CREATININE - SERUM 7.3 mg/dL (0.6-1.3); POTASSIUM - SERUM 4.8 mmol/L (3.5-5.1); PROTEIN - SERUM 7.6 g/dL (6.4-8.2)
--- NOTE | 2021-01-21 14:45 | MORECARE ---
CASE MANAGEMENT DISCHARGE SUMMARY PATIENT: PRADEEP DUBON UNIT: [id number] ADM DATE: 01/20/21 AGE: 55 : 61 SEX: F ROOM/BED: D.E17 AUTHOR: HORTENSIADOC PHYSICIAN: REFERRING PHYSICIAN: ELIDA SEVERINO MD DATE OF SERVICE: 01/21/21 Discharge Plan Patient Name: PRADEEP DUBON Facility: [facility]:[place] : 1965 Planned Disposition: Anticipated Discharge Date: Discharge Date: 01/21/2021 Expected LOS: Initial Reviewer: [email or web address] Initial Review Date: 01/20/2021 Generated: 01/21/21 3:45 pm DCP- Discharge Planning Updated by [email or web address]: Desiree Miranda on 01/20/21 7:[address] Patient Name: PRADEEP DUBON Admission Status: ER Accout number: [id number] Admission Date: 01-20-2021 : 1965 Admission Diagnosis: Attending: ELIDA BRADSHAW Current LOS: 1 Anticipated DC Date: Planned Disposition: Primary Insurance: MEDICARE A & B Discharge Planning Comments: CM spoke with patient for discharge planning. Patient states that she lives at home with her siblings. Patient is blind and has dialysis MWF in [place]. Patient has Rt BKA and is complaining of severe pain of Left lower ext. Patient has told staff that she doesn't want to live anymore if she continues to have the pain. Patient was very drowsy during CM interview. CM will need to readdress d/c plan after Psych and Dermatology sees patient. Maybe at that time she will be more responsive to making a plan. CM will continue to follow and assist as needed with discharge planning / needs. Wire Hanger: Desiree Miranda DCPIA - Discharge Planning Initial Assessment Updated by [email or web address]: Desiree Miranda on 01/20/21 8:03 pm * Is the patient Alert and Oriented? Yes * How many steps to enter\exit or inside your home? * PCP [facility] * Pharmacy [facility] * Preadmission Environment Home with Family * ADLs Partial Dependent * Partial ADLs (Assistance needed) Ambulation Bathing Dressing Eating Medication Management Toileting Transfers * Equipment None * List name and contact numbers for known caregivers / representatives who currently or will assist patient after discharge: SIM MELARA - DAUGHTER - [phone] * Verbal permission to speak to the caregivers and representatives has been obtained from the patient. Yes * Community resources currently utilized None * Additional services required to return to the preadmission environment? No * Can the patient safely return to the preadmission environment? Yes * Has this patient been hospitalized within the prior 30 days at any hospital? No Last DP export: 01/20/21 7:26 p Patient Name: PRADEEP DUBON Page 44827 at 1445 All edits/amendments must be made on the electronic document DICTATION DATE: 01/21/211444 TRANSFER CAR OPERATOR: LISA 01/21/211444 RPT#: [id number] DC DATE:01/21/21 STATUS: DIS IN [facility] [address] [place] [address] END OF REPORT
--- NOTE | 2021-01-21 16:01 | CN ---
PATIENT NAME:PRADEEP DUBON MEDICAL RECORD: [id number] : 61 LOCATION:[facility].E17- ADMIT DATE: 01/20/21 ACCOUNT: [id number] CONSULTING PHYSICIAN: LARISA NASCIMENTO MD REFERRING PHYSICIAN: ELIDA SEVERINO MD DATE OF CONSULTATION: 01/20/2021 IDENTIFYING DATA: The patient is 55 years old and she is admitted to the hospital on a voluntary basis. CHIEF COMPLAINT: Pain. HISTORY OF PRESENT ILLNESS: The patient is a very unfortunate woman, who has a number of medical problems. She has a terrible case of psoriasis and renal failure associated with it. She also has leg pain associated with the psoriasis. She is endorsing numerous neurovegetative depressive symptoms and says that she is wanting to kill herself. She couples this with the statement that she wants to kill herself because she is in such chronic pain. It does not seem or sound to be manipulative. It is not one of those situations where she is demanding an opiate or she will kill herself. The situation seems genuine, real, and she does appear to be quite uncomfortable. IMPRESSION: Major depression. PLAN: At this time, the patient has a number of medical problems including blindness, which I neglected to mention above and very understandable reasons why she would be depressed. She has never attempted to harm herself in the past and does tell me that she has strong buddhism views that are contrary to committing suicide. She is not appropriate for an inpatient psychiatric unit because of her many medical needs and I do not think she would represent a risk to herself or be inappropriate for placement in a alf or some sort of palliative care setting. She does need to be on antidepressant medications. TRANSINT:[id number] Voice Confirmation ID: [id number] DOCUMENT ID: [id number] LARISA NASCIMENTO MD at 1601 CC: [id number] DICTATION DATE: 01/20/21 [address] OPERATOR: 01/20/212235 DIS IN 01/21/[address] [facility] [address] [place] [address]
== END 2021-01-21 10:19 | disposition short-term general hospital (02) ==
LOC: D.ER 00:23 → OBSVTIME 08:25 → D.EDHOLD 08:25
PROVIDERS: Emergency Medicine; Family Medicine; ADMIT Family Medicine Adult Medicine; ATTEND Family Medicine Adult Medicine
DX: I12.0 Hypertensive chronic kidney disease with stage 5 chronic kidney disease or end stage renal disease (principal); N18.6 End stage renal disease; J44.9 Chronic obstructive pulmonary disease, unspecified; R45.851 Suicidal ideations; G89.29 Other chronic pain; M79.662 Pain in left lower leg; H54.7 Unspecified visual loss; F32.9 Major depressive disorder, single episode, unspecified; L40.9 Psoriasis, unspecified